=== PATIENT | male | born 1965 | race Caucasian/White ===

== ENCOUNTER 2018-04-26 08:49 | Emergency (ER) | payer BC, SELFPAY ==
[2018-04-26 08:49] VITALS: BP 134/89; PULSE 66; RESP 18; TEMP 36.6; O2SAT 98; BMI 44.6
[2018-04-26 08:54] VITALS: BP 180/95; PULSE 70; RESP 20; O2SAT 97
--- NOTE | 2018-04-26 09:07 | EKG12_ITS ---
Test Reason : DIZZINESS Blood Pressure : / mmHG Vent. Rate : 071 BPM Atrial Rate : 071 BPM P-R Int : 152 ms QRS Dur : 078 ms QT Int : 392 ms P-R-T Axes : 057 011 016 degrees QTc Int : 425 ms Normal sinus rhythm Normal ECG When compared with ECG of 31-MAY-2013 11:32, No significant change was found Confirmed by TERRI HICKEY, ROQUE ([id number]), videotape editor DELL CABRERA ([id number]) on 05/05/2018 2:24:52 PM Referred By: SHAN Confirmed By:ROQUE MURRAY MD
--- NOTE | 2018-04-26 09:07 | CT_ITS ---
STUDY: CT BRAIN WITHOUT CONTRAST REASON FOR EXAM: Male, 52 years old. Dizziness. RADIATION DOSAGE (If Supplied By Facility): CTDIvol = ( 44.99 ) mGy, DLP = ( 863.60 ) mGycm TECHNIQUE: Transaxial CT imaging of the brain was performed without administration of intravenous contrast material. Individualized dose optimization techniques were used for this CT. COMPARISON: Comparison is made with prior examination dated September 08, 2012. FINDINGS: Normal soft tissue structures. Normal calvarium. Normal size ventricles and extra-axial spaces for the patient's age. Normal white matter tracts of the cerebral hemispheres. Normal basal ganglia and thalami. Normal brainstem. Normal cerebellum. There is no intracranial hemorrhage. There are no findings of an acute ischemic infarction. There is a 1.2 cm polyp or mucosal retention cyst along the lateral inferior aspect of the right maxillary sinus. Mild degree of mucosal thickening of left maxillary sinus along its inferior aspect. CT/Brain/Head without Contrast IMPRESSION: Normal unenhanced CT scan of the brain. Mucosal changes in both maxillary sinuses. Electronically Signed: Liam Lazar MD at 10:04 EST Tel [phone], Service support ,
[2018-04-26 09:13] VITALS: BP 113/83; BP 136/102; BP 158/104; PULSE 75; PULSE 77; PULSE 78
[2018-04-26] MEDS: diazePAM 2 MG Tablet PO (09:30)
[2018-04-26] MEDS: 0.9% Normal Saline 1,000 ML 1000 ML IV (09:30)
[2018-04-26 09:32] LABS: Absolute Lymphocyte Count 1.84 X10^3/ul (0.83-4.51); Absolute Neutrophil Count 2.6 X10^3/uL (2.0-7.7); Basophil# 0.03 X10^3/uL; Basophil% 0.6 % (0-1); Eosinophil# 0.15 X10^3/uL; Hematocrit 41.7 % (40-54); Hemoglobin 14.1 g/dl (13.0-16.5); Lymphocyte # 1.84 X10^3/ul (4.0); Lymphocyte % 36.4 % (19-41); Mean Corp Hgb Conc 33.8 g/gl (32-36); Mean Corpuscular Hgb 31.1 pg (27.0-32.0); Mean Corpuscular Volume 91.9 fL (80-94); Mean Platelet Vol. 8.3 fl (6.2-12.0); Monocyte% 7.9 % (0-10); Neutrophil # 2.63 X10^3/uL (2.7-7.7); Neutrophil % 51.9 % (47-70); Platelet Count 280 K/mm3 (150-450); RBC Distribution Width CV 13.6 % (11.6-14.6); RBC Distribution Width SD 44.9 fl (35.1-43.9); Red Blood Count 4.54 M/mm3 (4.6-6.2); White Blood Count 5.1 K/mm3 (4.4-11.0)
[2018-04-26 09:35] LABS: POSITIVE COUNT NO; POSITIVE DIFFERENTIAL NO; POSITIVE MORPHOLOGY NO
[2018-04-26 09:51] LABS: Anion Gap 9 (5-15); BUN 13 mg/dL (7-18); BUN/Creat Ratio 12.5 RATIO (10-20); Calcium,Total 8.6 mg/dL (8.5-10.1); Chloride 109 mmol/L (98-107); Creatinine, Serum 1.04 mg/dL (0.70-1.30); EST Glomerular Filtration Rate 80 mL/min (>60); Est Glom Filt Rate - Afr Amer 97 mL/min (>60); Estimated Creatinine Clearance 93.27 ml/min; Glucose 96 mg/dL (74-106); Potassium 4.1 mmol/L (3.5-5.1); Sodium Level 144 mmol/L (136-145)
--- NOTE | 2018-04-26 10:14 | ED.VISSUMM ---
- ER Visit Summary Date of Service: 04/26/18 Chief Complaint: [Dizziness] History of Present Illness: The patient is a 52 M [presents to the emergency department with complaint of dizziness that started yesterday. 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 Patient denies any falls or head injuries. Patient states that he went home and just sat on the couch all day but he did note that when he got up to use the restroom he still felt somewhat woozy. Patient states the symptoms are definitely made worse by turning his head. This morning patient was having a hard time ambulating secondary to the dizziness. Patient has been nauseated but did not vomit. Patient states that he has had similar symptoms in the past once or twice but never this severe. Patient denies any weakness in extremities. He denies any paresthesias. He denies fever. Patient has had a slight cough that is been nonproductive for about a week and a half. Patient denies taking any new medications.] Physical Examination: [HEENT-PERRLA, EOMI. Cranial nerves II through XII grossly intact. TMs clear. Mucous membranes moist. No adenopathy. Cardiovascular-regular rate and rhythm without murmur or ectopy Lungs-clear to auscultation, chest wall stable without crepitus or subcu emphysema Abdomen-normoactive bowel sounds, soft, nontender, no rebound or rigidity, no peritoneal signs. Neuro vldc-osyrak-binr and heel escobedo testing within normal limits, negative Romberg, negative pronator drift, fundi benign. Hallpike was negative for nystagmus. NIH stroke scale is 0 Extremities-intact ?4, normal range of motion, normal pulses, atraumatic] Test Results: [Orthostatic vital signs were negative. EKG obtained arrival shows sinus rhythm with a ventricular rate of 71 bpm with no acute I segment changes. CBC with it was normal. Chemistries normal. Troponin is less than 0.015. CT scan of the brain without contrast was unremarkable.] Emergency Department Course and Treatment: [She was medicated with Valium 2 mg p.o. and he did feel improved. Patient was able ambulate in the department.] Treatment Plan: [I suspect patient likely has a benign positional vertigo. Patient will be treated with Valium for home as well as Zofran for nausea. Patient advised to follow-up with primary care physician 3-5 days. Patient given work restrictions.] Disposition: [Discharged home in stable condition] Impression: [Benign positional vertigo] This note was generated with [employer] dictation software. It may contain incorrect words, spelling, and punctuation that were not noted in review of the chart prior to signing ED Disposition - Plan for ED Patient: Chief Complaint: Dizziness Referrals: Lan Lopez MD [Primary Care Provider] -
--- NOTE | 2018-04-26 10:20 | ED.DEP ---
ED Disposition - Plan for ED Patient: Chief Complaint: Dizziness Instructions: ED BPV Vertigo Prescriptions: Ondansetron [Zofran Odt] 4 mg PO Q8H PRN PRN #10 tab PRN Reason: Nausea Diazepam [Valium] 2 mg PO TID PRN PRN #14 tab PRN Reason: Vertigo Referrals: Lan Lopez MD [Primary Care Provider] - 5-7 Days
[2018-04-26 11:09] VITALS: BP 118/63; PULSE 76; RESP 18; O2SAT 97
--- OUTSIDE RECORDS SUMMARY | 2018-06-12 08:48 | XMS RPT_ITS ---
:1965 Author Organization [facility] Care Team Providers Name Role Phone MATEUS PAN (JANNIE) Attending Unavailable VIVIANA LORENZO Referring Unavailable VIVIANA LORENZO Attending Unavailable VIVIANA LORENZO Referring Unavailable BERNARDA POST (PHOTOGRAPHIC LITHOGRAPHER) Attending Unavailable VIVIANA LORENZO Referring Unavailable VIVIANA LORENZO Referring Unavailable FLORESITA FRITZ (PA) Attending Unavailable VIVIANA LORENZO Referring Unavailable VIVIANA LORENZO Attending Unavailable VIVIANA LORENZO Referring Unavailable VIVIANA LORENZO Referring Unavailable Viviana Lorenzo Primary Care Unavailable Ethel Adame Attending Unavailable KenroyWilton hintonril Attending Unavailable Deep Rem Referring Unavailable PROBLEMS PROBLEMS DATE TYPE CONDITION / CODE ATTENDING STATUS SOURCE 05/24/2018 Active Other intermediate project manager NA Active [facility] (current) drug [place] therapy / Repository Z79.899(ICD-10) 05/24/2018 Unknown R42 - Dizziness Kenroy, Morris Active Christopher and giddiness / Community R42(ICD-10) Hospital Repository 11/02/2016 Active Personal history NA Active [facility] of nicotine [place] dependence / Repository Z87.891(ICD-10) 11/29/2017 Active Shortness of NA Active [facility] breath / [place] R06.02(ICD-10) Repository 08/26/2017 Active Unknown / PAN, Active [facility] UNK(Unknown) MATEUS GUNTER) [facility] [place] Repository PROCEDURES PROCEDURES No Procedure Records FoundRESULTS RESULTS PROGRESS Observed: 05/24/2018 Status: COMPLETED Source: [place] 10:[address] [facility] REPOSITORY HNO ID: [id number] Author: Viviana Lorenzo Service: (none) Author Type: Physician Type: Progress Notes Filed: 05/24/2018 10:50 PM Note Text: Chief Complaint Patient presents with: ER F/U: [facility] vertigo Imm/Inj: Flu Vaccine HPI Calvin Cabrera is a 52 year old male who presents here today for Chronic Medical Conditions.. Patient with Hx of depression , JUANJO, GERD, obesity, elevated fasting blood sugar, hypogonadism as well as those reviewed and addressed below. New issue: Patient was in the ER at [facility] 04/26/2018 for vertigo and evaluated. [place] to be BPV and placed on zofran prn and valium. Took the valium for the next week and symptoms improved and has not need any more since, Has had repeat symptoms several times since but not needing the valium ( patient was not advised on meclizine per the ER). Has never had PHYSICAL THERAPY for this in the past. If slows down what he is doing the symptoms nehal. Patient was on testosterone in the past for hypogonadism and fatigue but stopped due to side affect potential of cancer. Still tired and questioning if anything else can be used. Can get erections but not always able to maintain. Continues to do well with the paxil for his depression.. Wears his CPAP nightly and feels he gets good rest with use. Past medical history, appointments, medications, allergies reviewed. Previous Medical History PAST MEDICAL HISTORY Diagnosis Date - Allergic rhinitis - Anxiety - Depression - Dyslipidemia 12/06/2013 Low HDL - Elevated fasting blood sugar 05/18/2017 - Ex-smoker quite 2006 ( aprox 20 pack yrs) - Gastroesophageal reflux disease without esophagitis 06/18/2015 - GERD (gastroesophageal reflux disease) - Hypogonadism, testicular - Lumbago - Obesity - Obesity, Class III, BMI 40-49.9 (morbid obesity) ([facility]) 11/02/2016 - JUANJO (obstructive sleep apnea) 08/30/2013 Sever: on CPAP - Panic attack - Sleep apnea, obstructive - Tobacco abuse quite 2006 ( aprox 20 pack yrs) Previous Surgical History PAST SURGICAL HISTORY Procedure Laterality Date - COLONOSCOP W/ OR W/O BRSH SPEC 12/20/2017 Colonoscopy - EGD W/O OR W/BRUSH/WASH 12/20/2017 EGD - ELBOW RIGHT Right 2014 - SEPTOPLASTY - TONSILLECTOMY HX Family History FAMILY HISTORY Problem Relation Age of Onset - Diabetes Maternal Grandmother - Hypertension Father - other (parkenson's) Father - Heart disease Brother valve disease Patient Allergies ALLERGIES Allergen Reactions - Ambien [Zolpidem Ta* Anaphylaxis - Penicillins Unknown - Dicyclomine Other: See Comments [email or web address] Current Medications Current Outpatient Prescriptions on File Prior to Visit: PARoxetine (PAXIL) 40 mg tablet Take 1 tablet by mouth once daily. busPIRone HCl 7.5 mg tablet Take 1 tablet by mouth twice daily. ranitidine (ZANTAC) 150 mg tablet Take 1 tablet by mouth twice daily. COMPOUNDED PRESCRIPTION CPAP machine at 10 cm H2O with Humidification, nasal mask and suppliesDx: G47.33 CPAP Initiate CPAP @ 10 cm of water with humidification. Mask (per patient preference) optional chin strap (if indicated) , filters, tubing, humidifier and lifetime supplies. No current facility-administered medications on file prior to visit. Social History Social History Marital status: Spouse name: Years of education: Number of children: Social History Main Topics Smoking status: Former Smoker Packs/day: 0.00 Years: 0.00 Smokeless tobacco: Current User Types: Chew Comment: around 2002 Alcohol use: Yes Comment: occasional beer Review of Symptoms REVIEW OF SYSTEMS GENERAL: No weight loss, malaise or fevers NECK: Negative for lumps, goiter, pain and significant neck swelling RESPIRATORY: Negative for cough, hemoptysis, wheezing, COPD, dyspnea or shortness of breath CARDIOVASCULAR: Negative for chest pain, leg swelling, hypertension, CHF or palpitations GI: No nausea, vomiting, or diarrhea and No heartburn or reflux symptoms PSYCH: Negative for sleep disturbance, mood disorder and recent psychosocial stressors, See HPI ENDOCRINE: See HPI NEURO: No history of headaches, syncope, paralysis, seizures or tremors EXAM: BP 112/76 Pulse 88 Resp 14 Wt (!) 152.9 kg (337 lb) BMI 45.71 kg/m? General Appearance: Well appearing, alert, in no acute distress, well-hydrated, well nourished.. Eyes: Anicteric sclera. Pupils are equally round. Extraocular movements are intact. . Neck: Supple, no adenopathy; thyroid symmetric, normal size, no bruits. Lungs: lungs clear to auscultation. No wheezing, rhonchi, rales. Heart: RRR without murmur, gallop, or rubs. No ectopy. Abdomen: Normal abdominal exam, Abdomen soft, non-tender. Bowel sounds normal. No masses, organomegaly. Extremities: No deformities, edema, skin discoloration Peripheral Pulses: Normal. Neurologic: Gait normal. Reflexes normal and symmetric. Sensation to light touch and crainal nerves 2-12 intact.. Health Maintenance List ONE PNEUMOVAX PRIOR TO AGE 65 due on 09/17/1986 INFLUENZA(1) due on 01/14/2018 DIABETES SCREEN due on 04/17/2019 LIPID SCREEN due on 04/17/2021 DTAP,TDAP,TD(2 - Td) due on 03/29/2026 COLORECTAL CANCER SCREENING,SEE MODIFIER due on 12/21/2027 Data reviewed A/P ASSESSMENT/PLAN: 1. Dyslipidemia - ICD9: 272.4, ICD10: E78.5 (primary diagnosis) - to be determined upon return of lab results - Encouraged following a low fat, low cholesterol diet. - Discussed the benefits of regular aerobic exercise and weight loss. - Encouraged following a low carbohydrate, healthy oil intake diet. - Continue current therapy. 2. Elevated fasting blood sugar - ICD9: 790.21, ICD10: R73.01 - Will await A1c - Encouraged dietary changes and exercise for weight loss 3. Gastroesophageal reflux disease without esophagitis - ICD9: 530.81, ICD10: K21.9 - Continue treatment with Zantac 150 mg BID - RANITIDINE 150 MG TABLET 4. Major depressive disorder with single episode, in partial remission (HCC) - ICD9: 296.25, ICD10: F32.4 - doing well with Buspar and paxil 5. Anxiety - ICD9: 300.00, ICD10: F41.9 - As per #4 - PAROXETINE 40 MG TABLET 6. Panic attack - ICD9: 300.01, ICD10: F41.0 - As per #4 - PAROXETINE 40 MG TABLET 7. Need for vaccination - ICD9: V05.9, ICD10: Z23 - INFLUENZA VACCINE QUADRIVALENT AGE 3 YRS PLUS + IM given 8. JUANJO (obstructive sleep apnea) - ICD9: 327.23, ICD10: G47.33 - benefiting from CPAP and will cont. 9. Obesity, Class III, BMI 40-49.9 (morbid obesity) (HCC) - ICD9: 278.01, ICD10: E66.01 - As per # 2 10. Hypogonadism, testicular - ICD9: 257.2, ICD10: E29.1 Check - TESTOSTERONE TOTAL If wants to proceed with treatment will refer to urology 11. Erectile dysfunction, unspecified erectile dysfunction type - ICD9: 607.84, ICD10: N52.9 - As per #10 12. Benign paroxysmal positional vertigo, unspecified laterality - ICD9: 386.11, ICD10: H81.10 - Will treat with prn Zofran and meclozine. - CONSULT TO PHYSICAL THERAPY Signed Prescriptions Disp Refills PARoxetine (PAXIL) 40 mg tablet 30 tablet 5 Sig: Take 1 tablet by mouth once daily. LAURA: No busPIRone HCl 7.5 mg tablet 60 tablet 3 Sig: Take 1 tablet by mouth twice daily. LAURA: No ranitidine (ZANTAC) 150 mg tablet 60 tablet 5 Sig: Take 1 tablet by mouth twice daily. LAURA: No ondansetron orally disintegrating (ZOFRAN ODT) 4 mg disintegrating tablet 20 tablet 1 Sig: EVERY 8 HOURS NEEDED PRN For Nausea LAURA: No meclizine (ANTIVERT) 25 mg tab 30 tablet 1 Sig: Take 1 tablet by mouth three times daily. F/u in 6 months WAE check CMP, FLP, UA, PSA, A1c prior to visit. Viviana Lorenzo MD PROGRESS Observed: 05/24/2018 Status: COMPLETED Source: [place] 9:[address] [facility] REPOSITORY HNO ID: [id number] Author: Yael Macias Ma Service: (none) Author Type: (none) Type: Progress Notes Filed: 05/24/2018 10:50 PM Note Text: 52 year old male here for INACTIVATED INFLUENZA VACCINE. [id number] Season Patient is identified by name and date of : Yes [] CONTRAINDICATIONS color enhanced section Age less than 6 months? No Allergy to eggs, chicken, chicken feathers, or chicken dander? No Allergy to thimerosal (a preservative) or formaldehyde, gelatin? No History of severe reaction to any vaccine component or a previous dose of influenza vaccination? No History of Guillain-[place] Syndrome within 6 weeks after a previous influenza vaccine? No Patient is not moderately or severely ill? No Current temperature greater or equal to 100.4F? No History of Bone Marrow Transplant prior 6 months or solid organ transplant in the past 3 months ? No History of fainting after a prior injection or medical procedure? No- ? If patient has fainted in the past, the CDC recommends sitting or lying down for 15 minutes after the vaccination. [] VERIFICATION color enhanced section Was the answer Yes for any of the above contraindications? No contraindications present. Acceptable to proceed with vaccine. Patient/guardian agrees the above answers are true to the best of their knowledge? Yes Flu vaccine information sheet given? Yes See immunization activity in [facility] for details of immunizations adminstered today. Patient age: [age] year old For The 9490-6853 Flu Season 6-35 months old: Fluzone 0.25 ml - IM (Preservative Free) 3 years of age: Fluzone 0.5 ml - IM (Preservative Free) 3 years and older: Fluzone 0.5 ml- IM-(with Preservatives) 65+ years old: 2-49 years old Fluzone High-Dose 0.5 ml - IM (Preservative Free) FLUMIST- intranasal REMEMBER: If patient is less than 9 years of age and this is the first vaccine of Influenza to be received in any flu season, they should receive a second dose in one months time. CNOV Observed: 05/24/2018 Status: COMPLETED Source: [place] 9:[address] [facility] REPOSITORY Office Visit (FAMPWS) CALVIN CABRERA ([id number]) 1965 M Date Time Provider Department 05/24/18 9:40 AM VIVIANA LORENZO During your visit today, we recorded the following information about you: Pulse Respiration Blood pressure Weight 88/minute 14/minute 112/76 152.9 kg Yael Garcíaxander Carbajal 05/24/2018 10:50 PM Signed 52 year old male here for INACTIVATED INFLUENZA VACCINE. [id number] Season Patient is identified by name and date of : Yes [] CONTRAINDICATIONS color enhanced section Age less than 6 months? No Allergy to eggs, chicken, chicken feathers, or chicken dander? No Allergy to thimerosal (a preservative) or formaldehyde, gelatin? No History of severe reaction to any vaccine component or a previous dose of influenza vaccination? No History of Guillain-[place] Syndrome within 6 weeks after a previous influenza vaccine? No Patient is not moderately or severely ill? No Current temperature greater or equal to 100.4F? No History of Bone Marrow Transplant prior 6 months or solid organ transplant in the past 3 months ? No History of fainting after a prior injection or medical procedure? No- ? If patient has fainted in the past, the CDC recommends sitting or lying down for 15 minutes after the vaccination. [] VERIFICATION color enhanced section Was the answer Yes for any of the above contraindications? No contraindications present. Acceptable to proceed with vaccine. Patient/guardian agrees the above answers are true to the best of their knowledge? Yes Flu vaccine information sheet given? Yes [facility] details of immunizations adminstered today. Patient age: [age] year old For The 0294-1106 Flu Season 6-35 months old: Fluzone 0.25 ml - IM (Preservative Free) 3 years of age: Fluzone 0.5 ml - IM (Preservative Free) 3 years and older: Fluzone 0.5 ml- IM-(with Preservatives) 65+ years old: 2-49 years old Fluzone High-Dose 0.5 ml - IM (Preservative Free) FLUMIST- intranasal REMEMBER: If patient is less than 9 years of age and this is the first vaccine of Influenza to be received in any flu season, they should receive a second dose in one months time. Viviana Lroenzo MD 05/24/2018 10:50 PM Signed Chief Complaint Patient presents with: ER F/U: [facility] vertigo Imm/Inj: Flu Vaccine HPI Calvin Cabrera is a 52 year old male who presents here today for Chronic Medical Conditions.. Patient with Hx of depression , JUANJO, GERD, obesity, elevated fasting blood sugar, hypogonadism as well as those reviewed and addressed below. New issue: Patient was in the ER at [facility] 04/26/2018 for vertigo and evaluated. [place] to be BPV and placed on zofran prn and valium. Took the valium for the next week and symptoms improved and has not need any more since, Has had repeat symptoms several times since but not needing the valium ( patient was not advised on meclizine per the ER). Has never had PHYSICAL THERAPY for this in the past. If slows down what he is doing the symptoms nehal. Patient was on testosterone in the past for hypogonadism and fatigue but stopped due to side affect potential of cancer. Still tired and questioning if anything else can be used. Can get erections but not always able to maintain. Continues to do well with the paxil for his depression.. Wears his CPAP nightly and feels he gets good rest with use. Past medical history, appointments, medications, allergies reviewed. Previous Medical History PAST MEDICAL HISTORY Diagnosis Date - Allergic rhinitis - Anxiety - Depression - Dyslipidemia 12/06/2013 Low HDL - Elevated fasting blood sugar 05/18/2017 - Ex-smoker quite 2006 ( aprox 20 pack yrs) - Gastroesophageal reflux disease without esophagitis 06/18/2015 - GERD (gastroesophageal reflux disease) - Hypogonadism, testicular - Lumbago - Obesity - Obesity, Class III, BMI 40-49.9 (morbid obesity) ([facility]) 11/02/2016 - JUANJO (obstructive sleep apnea) 08/30/2013 Sever: on CPAP - Panic attack - Sleep apnea, obstructive - Tobacco abuse quite 2006 ( aprox 20 pack yrs) Previous Surgical History PAST SURGICAL HISTORY Procedure Laterality Date - COLONOSCOP W/ OR W/O BRSH SPEC 12/20/2017 Colonoscopy - EGD W/O OR W/BRUSH/WASH 12/20/2017 EGD - ELBOW RIGHT Right 2013 - SEPTOPLASTY - TONSILLECTOMY HX Family History FAMILY HISTORY Problem Relation Age of Onset - Diabetes Maternal Grandmother - Hypertension Father - other (parkenson's) Father - Heart disease Brother valve disease Patient Allergies ALLERGIES Allergen Reactions - Ambien [Zolpidem Ta* Anaphylaxis - Penicillins Unknown - Dicyclomine Other: See Comments jitters Current Medications Current Outpatient Prescriptions on File Prior to Visit: PARoxetine (PAXIL) 40 mg tablet Take 1 tablet by mouth once daily. busPIRone HCl 7.5 mg tablet Take 1 tablet by mouth twice daily. ranitidine (ZANTAC) 150 mg tablet Take 1 tablet by mouth twice daily. COMPOUNDED PRESCRIPTION CPAP machine at 10 cm H2O with Humidification, nasal mask and suppliesDx: G47.33 CPAP Initiate CPAP @ 10 cm of water with humidification. Mask (per patient preference) optional chin strap (if indicated) , filters, tubing, humidifier and lifetime supplies. No current facility-administered medications on file prior to visit. Social History Social History Marital status: Spouse name: Years of education: Number of children: Social History Main Topics Smoking status: Former Smoker Packs/day: 0.00 Years: 0.00 Smokeless tobacco: Current User Types: Chew Comment: around 2002 Alcohol use: Yes Comment: occasional beer Review of Symptoms REVIEW OF SYSTEMS GENERAL: No weight loss, malaise or fevers NECK: Negative for lumps, goiter, pain and significant neck swelling RESPIRATORY: Negative for cough, hemoptysis, wheezing, COPD, dyspnea or shortness of breath CARDIOVASCULAR: Negative for chest pain, leg swelling, hypertension, CHF or palpitations GI: No nausea, vomiting, or diarrhea and No heartburn or reflux symptoms PSYCH: Negative for sleep disturbance, mood disorder and recent psychosocial stressors, See HPI ENDOCRINE: See HPI NEURO: No history of headaches, syncope, paralysis, seizures or tremors EXAM: BP 112/76 Pulse 88 Resp 14 Wt (!) 152.9 kg (337 lb) BMI 45.71 kg/m? General Appearance: Well appearing, alert, in no acute distress, well-hydrated, well nourished.. Eyes: Anicteric sclera. Pupils are equally round. Extraocular movements are intact. . Neck: Supple, no adenopathy; thyroid symmetric, normal size, no bruits. Lungs: lungs clear to auscultation. No wheezing, rhonchi, rales. Heart: RRR without murmur, gallop, or rubs. No ectopy. Abdomen: Normal abdominal exam, Abdomen soft, non-tender. Bowel sounds normal. No masses, organomegaly. Extremities: No deformities, edema, skin discoloration Peripheral Pulses: Normal. Neurologic: Gait normal. Reflexes normal and symmetric. Sensation to light touch and crainal nerves 2-12 intact.. Health Maintenance List ONE PNEUMOVAX PRIOR TO AGE 65 due on 09/17/1986 INFLUENZA(1) due on 01/14/2018 DIABETES SCREEN due on 04/17/2019 LIPID SCREEN due on 04/17/2021 DTAP,TDAP,TD(2 - Td) due on 03/29/2026 COLORECTAL CANCER SCREENING,SEE MODIFIER due on 12/21/2027 Data reviewed A/P ASSESSMENT/PLAN: 1. Dyslipidemia - ICD9: 272.4, ICD10: E78.5 (primary diagnosis) - to be determined upon return of lab results - Encouraged following a low fat, low cholesterol diet. - Discussed the benefits of regular aerobic exercise and weight loss. - Encouraged following a low carbohydrate, healthy oil intake diet. - Continue current therapy. 2. Elevated fasting blood sugar - ICD9: 790.21, ICD10: R73.01 - Will await A1c - Encouraged dietary changes and exercise for weight loss 3. Gastroesophageal reflux disease without esophagitis - ICD9: 530.81, ICD10: K21.9 - Continue treatment with Zantac 150 mg BID - RANITIDINE 150 MG TABLET 4. Major depressive disorder with single episode, in partial remission (HCC) - ICD9: 296.25, ICD10: F32.4 - doing well with Buspar and paxil 5. Anxiety - ICD9: 300.00, ICD10: F41.9 - As per #4 - PAROXETINE 40 MG TABLET 6. Panic attack - ICD9: 300.01, ICD10: F41.0 - As per #4 - PAROXETINE 40 MG TABLET 7. Need for vaccination - ICD9: V05.9, ICD10: Z23 - INFLUENZA VACCINE QUADRIVALENT AGE 3 YRS PLUS + IM given 8. JUANJO (obstructive sleep apnea) - ICD9: 327.23, ICD10: G47.33 - benefiting from CPAP and will cont. 9. Obesity, Class III, BMI 40-49.9 (morbid obesity) (HCC) - ICD9: 278.01, ICD10: E66.01 - As per # 2 10. Hypogonadism, testicular - ICD9: 257.2, ICD10: E29.1 Check - TESTOSTERONE TOTAL If wants to proceed with treatment will refer to urology 11. Erectile dysfunction, unspecified erectile dysfunction type - ICD9: 607.84, ICD10: N52.9 - As per #10 12. Benign paroxysmal positional vertigo, unspecified laterality - ICD9: 386.11, ICD10: H81.10 - Will treat with prn Zofran and meclozine. - CONSULT TO PHYSICAL THERAPY Signed Prescriptions Disp Refills PARoxetine (PAXIL) 40 mg tablet 30 tablet 5 Sig: Take 1 tablet by mouth once daily. LAURA: No busPIRone HCl 7.5 mg tablet 60 tablet 3 Sig: Take 1 tablet by mouth twice daily. LAURA: No ranitidine (ZANTAC) 150 mg tablet 60 tablet 5 Sig: Take 1 tablet by mouth twice daily. LAURA: No ondansetron orally disintegrating (ZOFRAN ODT) 4 mg disintegrating tablet 20 tablet 1 Sig: EVERY 8 HOURS NEEDED PRN For Nausea LAURA: No meclizine (ANTIVERT) 25 mg tab 30 tablet 1 Sig: Take 1 tablet by mouth three times daily. F/u in 6 months WAE check CMP, FLP, UA, PSA, A1c prior to visit. MD Viviana Morrison MD 05/24/2018 10:42 AM Signed Please get fasting labs and urine test done on or after 11/10/2018 prior to next visit, Referring Provider: VIVIANA LORENZO [[id number]] Allergies As of Date: 05/24/2018 Noted Allergy Reaction AMBIEN (ZOLPIDEM TARTRATE) 05/14/2013 10 - Anaphylaxis PENICILLINS 04/03/2013 16 - Unknown DICYCLOMINE 05/14/2013 14 - Other: See Comments Comments: sheila Date Reviewed: 05/24/2018 Reviewed by: Viviana Lorenzo - Fully Assessed Reason for Visit: ER F/U [41] Cmt: [facility] vertigo Imm/Inj [58] Cmt: Flu Vaccine Reason For Visit History Recorded Primary Visit Diagnosis:Dyslipidemia [E78.5] Other Visit Diagnoses:Elevated fasting blood sugar [R73.01] Gastroesophageal reflux disease without esophagitis [K21.9] Major depressive disorder with single episode, in partial remission (HCC) [F32.4] Anxiety [F41.9] Panic attack [F41.0] Need for vaccination [Z23] JUANJO (obstructive sleep apnea) [G47.33] Obesity, Class III, BMI 40-49.9 (morbid obesity) ([facility]) [E66.01] Hypogonadism, testicular [E29.1] Erectile dysfunction, unspecified erectile dysfunction type [N52.9] Screening for prostate cancer [Z12.5] Benign paroxysmal positional vertigo, unspecified laterality [H81.10] Order(s):INFLUENZA VACCINE QUADRIVALENT AGE 3 YRS PLUS + IM [[id number]] Order #: [id number] PARoxetine (PAXIL) 40 mg tabletTake 1 tablet by mouth once daily.Disp: 30 tabletRfl: 5 busPIRone HCl 7.5 mg tabletTake 1 tablet by mouth twice daily.Disp: 60 tabletRfl: 3 ranitidine (ZANTAC) 150 mg tabletTake 1 tablet by mouth twice daily.Disp: 60 tabletRfl: 5 ondansetron orally disintegrating (ZOFRAN ODT) 4 mg disintegrating tabletEVERY 8 HOURS NEEDED PRN For NauseaDisp: 20 tabletRfl: 1 meclizine (ANTIVERT) 25 mg tabTake 1 tablet by mouth three times daily.Disp: 30 tabletRfl: 1 TESTOSTERONE TOTAL [SQTESTO] Order #: [id number] FUTURE COMP METABOLIC PANEL [SQCMP] Order #: [id number] FUTURE HGB A1C [[id number]] Order #: [id number] FUTURE PSA/PROSTSPECAG DIAG [SQPSA] Order #: [id number] FUTURE URINALYSIS WITH MICROSCOPIC [SQUAWMIC] Order #: [id number] FUTURE LIPID PANEL, NONFASTING [SQLIPNF] Order #: [id number] FUTURE CONSULT TO PHYSICAL THERAPY [9032] Order #: [id number]: 1 Prescriptions as of 05/24/2018 Sig: DIAZEPAM 2 MG TABLET 3 TIMES DAILY NEEDED PRN F* PAROXETINE 40 MG TABLET Take 1 tablet by mouth once d* BUSPIRONE 7.5 MG TABLET Take 1 tablet by mouth twice * RANITIDINE 150 MG TABLET Take 1 tablet by mouth twice * ONDANSETRON 4 MG DISINTEGRATI* EVERY 8 HOURS NEEDED PRN F* COMPOUNDED PRESCRIPTION CPAP machine at 10 cm H2O wit* CPAP Initiate CPAP @ 10 cm of wate* MECLIZINE 25 MG TABLET Take 1 tablet by mouth three * Problem List As Of Date 05/24/2018 Noted Resolved Anxiety [F41.9] Major depressive disorder with single episode, * Panic attack [F41.0] Ex-smoker [Z87.891] More... Allergic rhinitis [J30.9] Hypogonadism, testicular [E29.1] Sleep apnea, obstructive [G47.33] 08/30/2013 Lumbago [M54.5] JUAJNO (obstructive sleep apnea) [G47.33] INVALID FOR* More... Dyslipidemia [E78.5] INVALID FOR* More... Gastroesophageal reflux disease without esophag*INVALID FOR* Proteinuria [R80.9] INVALID FOR* Obesity, Class III, BMI 40-49.9 (morbid obesity*INVALID FOR* Left lateral epicondylitis [M77.12] INVALID FOR* Elevated fasting blood sugar [R73.01] INVALID FOR* Screening for prostate cancer [Z12.5] INVALID FOR* Well adult exam [Z00.00] INVALID FOR* More... Screening for colon cancer [Z12.11] INVALID FOR* More... More... Erectile dysfunction [N52.9] INVALID FOR* Other instructions from your clinician: Please get fasting labs and urine test done on or after 11/10/2018 prior to next visit, Prescriptions ordered this encounter Disp Refills Start End PAROXETINE 40 MG TABLET 30 t* 5 05/24/2018 Route: ORAL Sig: Take 1 tablet by mouth once daily. BUSPIRONE 7.5 MG TABLET 60 t* 3 05/24/2018 Route: ORAL Sig: Take 1 tablet by mouth twice daily. RANITIDINE 150 MG TABLET 60 t* 5 05/24/2018 Route: ORAL Sig: Take 1 tablet by mouth twice daily. ONDANSETRON 4 MG DISINTEGRATING TABL* 20 t* 1 05/24/2018 Sig: EVERY 8 HOURS NEEDED PRN For Nausea MECLIZINE 25 MG TABLET 30 t* 1 05/24/2018 Route: ORAL Sig: Take 1 tablet by mouth three times daily. Medications Discontinued During This Encounter PARoxetine (PAXIL) 40 mg tablet 30 t* 5 11/15/2017 05/24/2018 Route: ORAL Sig: Take 1 tablet by mouth once daily. Disc: Reason for discontinue is not on file. busPIRone HCl 7.5 mg tablet 60 t* 1 11/15/2017 05/24/2018 Route: ORAL Sig: Take 1 tablet by mouth twice daily. Disc: Reason for discontinue is not on file. ranitidine (ZANTAC) 150 mg tablet 60 t* 5 11/15/2017 05/24/2018 Route: ORAL Sig: Take 1 tablet by mouth twice daily. Disc: Reason for discontinue is not on file. ondansetron orally disintegrating (Z* 04/26/2018 05/24/2018 Class: Historical Med Sig: EVERY 8 HOURS NEEDED PRN For Nausea Disc: Reason for discontinue is not on file. Disposition: Return in about 6 months (around 11/21/2018) for complete PE. Follow-up and Disposition History Recorded Encounter Status:Closed by VIVIANA LORENZO on 05/24/18 LIPID PANEL, BASIC Collected: 05/24/2018 Status: F Source: [place] 9:[address] [facility] REPOSITORY TYPE CODE TESTS RESULT OUT OF REFERENCE UNITS RANGE LAB CHOL <200 mg/dL Cholesterol 146 Result Comment: <200 mg/dL, Desirable 200-239 mg/dL, Borderline high >239 mg/dL, High LAB TRIGLY <150 mg/dL Triglyceride 127 Result Comment: <150 mg/dL, Normal 150-199 mg/dL, Borderline high 200-499 mg/dL, High >499 mg/dL, Very high LAB HDL >39 mg/dL HDL-Cholesterol Low 28 Result Comment: 40-59 mg/dL, Acceptable >59 mg/dL, High: Negative risk factor for coronary heart disease <40 mg/dL, Low: Positive risk factor for coronary heart disease LAB LDL <100 mg/dL LDL-Cholesterol 93 Result Comment: <100 mg/dL, Optimal 100-129 mg/dL, Near optimal/above optimal 130-159 mg/dL, Borderline high 160-189 mg/dL, High >189 mg/dL, Very high Secondary prevention optimal LDL Cholesterol levels are recommended to be < 70 mg/dL LAB NONHDL <130 mg/dL Non HDL Cholesterol 118 Result Comment: <130 mg/dL, Optimal 130-159 mg/dL, Near optimal/above optimal 160-189 mg/dL, Borderline high 190-219 mg/dL, High >219 mg/dL, Very high Secondary prevention optimal non HDL Cholesterol levels are recommended to be < 100 mg/dL LAB FT hrs Fasting Time 14 LAB VLDL <30 mg/dL VLDL Cholesterol 25 LAB TCHDL <5.10 High TC:HDL Ratio 5.21 LAB LDLHDL <2.54 High LDL:HDL Ratio 3.32 Result Comment: Reference: 1. National Cholesterol Education Program ATP III Guideline At-A-Glance Quick Desk Reference: National Heart, Lung, and Blood [place]. National Institutes of Health. 2001: NIH Publication No. 01-3305. 2. An International Atherosclerosis Society position paper: global recommendations for the management of dyslipidemia: executive summary, Atherosclerosis. 2014: 232(2):410-413. Performed By: #### LIPB, HBA1C #### [facility] [address] [id number] HEMOGLOBIN A1C Collected: 05/24/2018 Status: F Source: [place] 9:25 AM [facility] REPOSITORY TYPE CODE TESTS RESULT OUT OF REFERENCE UNITS RANGE LAB HGBA1C 4.3-5.6 % Hemoglobin A1c 5.6 Result Comment: [place] Diabetes [employer] guidelines indicate that patients with HgbA1c in the range 5.7-6.4% are at increased risk for development of diabetes, and intervention by lifestyle modification may be beneficial. HgbA1c greater or equal to 6.5% is considered diagnostic of diabetes. LAB HBA0 mg/dL Est. Average Glucose 114 Result Comment: eAG: (Estimated average glucose) is a calculated value from HgbA1c and is event representative of the average blood glucose level in the last 2-3 month period. Performed By: #### LIPB, HBA1C #### [facility] [employer] [address] [id number] TESTOSTERONE Collected: 05/24/2018 Status: F Source: [place] 9:[address] [facility] REPOSITORY TYPE CODE TESTS RESULT OUT OF REFERENCE UNITS RANGE LAB TESTO 193-824 ng/dL Testosterone Low 79 Result Comment: A testosterone level in the 193-320 ng/dL range with associated clinical symptoms is considered low and may indicate hypogonadism (from [facility] 2010 363:123-135). Results >320 ng/dL are considered normal. Result rechecked. Performed By: #### TESTO #### [facility] [employer] [address] [id number] CNCO Observed: 05/24/2018 Status: COMPLETED Source: [place] 12:[address] [facility] REPOSITORY Letter Text Viviana Lorenzo MD [facility] [place], [place] [address] 05/24/2018 TO WHOM IT MAY CONCERN: This is to confirm that Calvin Cabrera had an appointment and was seen at the [facility] [place] [facility] in the Department of Family Medicine by Viviana Lorenzo MD on 05/24/2018. Sincerely yours, Viviana Lorenzo MD CNPTOUTREACH Observed: 05/08/2018 Status: COMPLETED Source: [place] 12:[address] [facility] REPOSITORY Patient Outreach ([facility]) CALVIN CABRERA ([id number]) 1965 M Date Time Provider Department 05/08/18 VIVIANA LORENZO [facility] During your visit today, we recorded the following information about you: Allergies As of Date: 05/08/2018 Noted Allergy Reaction AMBIEN (ZOLPIDEM TARTRATE) 05/14/2013 10 - Anaphylaxis PENICILLINS 04/03/2013 16 - Unknown DICYCLOMINE 05/14/2013 14 - Other: See Comments Comments: sheila Date Reviewed: 04/26/2018 Reviewed by: Linda (Rn) Devika - Fully Assessed Visit Diagnosis:Medication management [Z79.899] Order(s):HGB A1C [QEJXV1G] Order #: [id number] FUTURE LIPID PANEL BASIC [SQLIPB] Order #: [id number] FUTURE Prescriptions as of 05/08/2018 Sig: PAROXETINE 40 MG TABLET Take 1 tablet by mouth once d* BUSPIRONE 7.5 MG TABLET Take 1 tablet by mouth twice * RANITIDINE 150 MG TABLET Take 1 tablet by mouth twice * COMPOUNDED PRESCRIPTION CPAP machine at 10 cm H2O wit* CPAP Initiate CPAP @ 10 cm of wate* Problem List As Of Date 05/08/2018 Noted Resolved Anxiety [F41.9] Depression [F32.9] Panic attack [F41.0] Ex-smoker [Z87.891] More... Allergic rhinitis [J30.9] Hypogonadism, testicular [E29.1] Sleep apnea, obstructive [G47.33] 08/30/2013 Lumbago [M54.5] JUANJO (obstructive sleep apnea) [G47.33] INVALID FOR* More... Dyslipidemia [E78.5] INVALID FOR* More... Gastroesophageal reflux disease without esophag*INVALID FOR* Proteinuria [R80.9] INVALID FOR* Obesity, Class III, BMI 40-49.9 (morbid obesity*INVALID FOR* Left lateral epicondylitis [M77.12] INVALID FOR* Elevated fasting blood sugar [R73.01] INVALID FOR* Screening for prostate cancer [Z12.5] INVALID FOR* Well adult exam [Z00.00] INVALID FOR* More... Screening for colon cancer [Z12.11] INVALID FOR* Colon cancer screening [Z12.11] INVALID FOR* More... GERD (gastroesophageal reflux disease) [K21.9] INVALID FOR* More... Encounter Status:Closed by PINEDA HICKS on 05/23/18 12 LEAD ELECTROCARDIOGRAM Observed: 05/05/2018 Status: F Source: [place] 2:25 PM [facility] REPOSITORY [facility] Cardiovascular Services [address] [place] [address] 12 Lead EKG 04/26/18 0859 MR#: [id number] Acct: [id number] Name: CALVIN CABRERA Rep #: [id number] : 1965 52 From: Zack Jasmine MD Attending Dr: Status: DEP ER Ordering Dr: Ethel Adame DO Date: 04/26/18 Location: ED Sex: M C Admitted: Test Reason : DIZZINESS Blood Pressure : / mmHG Vent. Rate : 071 BPM Atrial Rate : 071 BPM P-R Int : 152 ms QRS Dur : 078 ms QT Int : 392 ms P-R-T Axes : 057 011 016 degrees QTc Int : 425 ms Normal sinus rhythm Normal ECG When compared with ECG of 31-MAY-2013 11:32, No significant change was found Confirmed by KENROY HICKEY, ZACK ([id number]), acquisition editor DELL CABRERA ([id number]) on 05/05/2018 2:24:52 PM Referred By: RU Confirmed By:ZACK JASMINE MD 05/05/18 1424 Date Zack Jasmine MD CC: Viviana Lorenzo MD; Ethel Adame DO Signed DISCHARGE INSTRUCTION Observed: 04/26/2018 Status: F Source: [place] 10:21 AM [facility] Medical Records Department [address] [place] [address] Discharge Instruction 04/26/18 1020 MR#: [id number] Acct: [id number] Name: CALVIN CABRERA Rep #: [id number] : 1965 52 From: Ethel Adame DO PCP: Viviana Lorenzo MD Status: REG ER ED Disposition - Plan for ED Patient: Chief Complaint: Dizziness Instructions: ED BPV Vertigo Prescriptions: Ondansetron [Zofran Odt] 4 mg PO Q8H PRN PRN #10 tab PRN Reason: Nausea Diazepam [Valium] 2 mg PO TID PRN PRN #14 tab PRN Reason: Vertigo Referrals: Viviana Lorenzo MD [Primary Care Provider] - 5-7 Days What to do if you have Problems For any increased pain, shortness of breath, bleeding, nausea or vomiting, chest pain, or any unexpected problems, contact your Primary Care Provider. Call [facility] ([phone]) or report to the closest Emergency Room. Call 911 if necessary. 04/26/18 1021 <Electronically signed by Ethel Adame DO> Date Ethel Adame DO Cosigner Signature (If Indicated): Date CC: Viviana Lorenzo MD EMERGENCY DEPARTMENT Observed: 04/26/2018 Status: F Source: [place] SUMMARY 10:20 AM [facility] Medical Records Department [address] [place] [address] Emergency Department Summary 04/26/18 1014 MR#: [id number] Acct: [id number] Name: CALVIN CABRERA Rep #: [id number] : 1965 52 From: Ethel Adame DO PCP: Viviana Lorenzo MD Status: REG ER - ER Visit Summary Date of Service: 04/26/18 Chief Complaint: [Dizziness] History of Present Illness: The patient is a 52 M [presents to the emergency department with complaint of dizziness that started yesterday. 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 Patient denies any falls or head injuries. Patient states that he went home and just sat on the couch all day but he did note that when he got up to use the restroom he still felt somewhat woozy. Patient states the symptoms are definitely made worse by turning his head. This morning patient was having a hard time ambulating secondary to the dizziness. Patient has been nauseated but did not vomit. Patient states that he has had similar symptoms in the past once or twice but never this severe. Patient denies any weakness in extremities. He denies any paresthesias. He denies fever. Patient has had a slight cough that is been nonproductive for about a week and a half. Patient denies taking any new medications.] Physical Examination: [HEENT-PERRLA, EOMI. Cranial nerves II through XII grossly intact. TMs clear. Mucous membranes moist. No adenopathy. Cardiovascular-regular rate and rhythm without murmur or ectopy Lungs-clear to auscultation, chest wall stable without crepitus or subcu emphysema Abdomen-normoactive bowel sounds, soft, nontender, no rebound or rigidity, no peritoneal signs. Neuro ztla-yycpmt-guqh and heel escobedo testing within normal limits, negative Romberg, negative pronator drift, fundi benign. Hallpike was negative for nystagmus. NIH stroke scale is 0 Extremities-intact 4, normal range of motion, normal pulses, atraumatic] Test Results: [Orthostatic vital signs were negative. EKG obtained arrival shows sinus rhythm with a ventricular rate of 71 bpm with no acute I segment changes. CBC with it was normal. Chemistries normal. Troponin is less than 0.015. CT scan of the brain without contrast was unremarkable.] Emergency Department Course and Treatment: [She was medicated with Valium 2 mg p.o. and he did feel improved. Patient was able ambulate in the department.] Treatment Plan: [I suspect patient likely has a benign positional vertigo. Patient will be treated with Valium for home as well as Zofran for nausea. Patient advised to follow-up with primary care physician 3-5 days. Patient given work restrictions.] Disposition: [Discharged home in stable condition] Impression: [Benign positional vertigo] This note was generated with [employer] dictation software. It may contain incorrect words, spelling, and punctuation that were not noted in review of the chart prior to signing ED Disposition - Plan for ED Patient: Chief Complaint: Dizziness Referrals: Viviana Lorenzo MD [Primary Care Provider] - What to do if you have Problems For any increased pain, shortness of breath, bleeding, nausea or vomiting, chest pain, or any unexpected problems, contact your Primary Care Provider. Call [facility] ([phone]) or report to the closest Emergency Room. Call 911 if necessary. 04/26/18 1020 <Electronically signed by Ethel Adame DO> Date Ethel Adame DO Cosigner Signature (If Indicated): Date CC: Viviana Lorenzo MD CBC W/DIFF, AUTOMATED Collected: 04/26/2018 Status: F Source: [place] 9:20 AM [facility] REPOSITORY TYPE CODE TESTS RESULT OUT OF RANGE REFERENCE UNITS LAB L100.1000 4.4-11.0 K/mm3 Normal WBC 5.1 LAB L100.1200 4.6-6.2 M/mm3 Low RBC 4.54 LAB L100.1300 13.0-16.5 g/dl Normal HGB 14.1 LAB L100.1400 40-54 % Normal HCT 41.7 LAB L100.1500 80-94 fL Normal MCV 91.9 LAB L100.1600 27.0-32.0 pg Normal MCH 31.1 LAB L100.1700 32-36 g/gl Normal MCHC 33.8 LAB L100.1810 11.6-14.6 % Normal RDW CV 13.6 LAB L100.1820 35.1-43.9 fl High RDW SD 44.9 LAB L100.1900 150-450 K/mm3 Normal PLT 280 LAB L100.2000 6.2-12.0 fl Normal MPV 8.3 LAB L100.2100 47-70 % Normal NEUT% 51.9 LAB L100.2200 19-41 % Normal LY% 36.4 LAB L100.2300 0-10 % Normal MONO% 7.9 LAB L100.2400 0-5 % Normal EO% 3.0 LAB L100.2500 0-1 % Normal BASO% 0.6 LAB L100.2550 0.0-0.9 % Normal IM GRAN % 0.200 Result Comment: IG% - Immature Granulocytes (promyelocytes, myelocytes and metamyelocytes) > 1% indicates that a LEFT SHIFT is Present. LAB L100.2620 2.0-7.7 X10 3/uL Normal Absolute Neut 2.6 LAB L100.2720 0.83-4.51 X10 3/ul Normal Absolute Lymph 1.84 Performed By: #### L100.0100 #### [facility] [address], [place], [id number] BASIC METABOLIC Collected: 04/26/2018 Status: F Source: [place] PROFILE (BMP) 9:20 AM [facility] REPOSITORY TYPE CODE TESTS RESULT OUT OF RANGE REFERENCE UNITS LAB L501.0100 74-106 mg/dL Normal GLU 96 Result Comment: Please note revised GLUCOSE reference range effective 2017. LAB L501.1000 7-18 mg/dL Normal BUN 13 LAB L501.1100 0.70-1.30 mg/dL Normal CREAT,SERUM 1.04 Result Comment: The validity of the calculated GFR AND GFRAA in patients over 70 years has not been determined. Clinical correlation is essential. LAB L501.1110 >60 mL/min Normal EST GFR 80 Result Comment: Non- GFR Calc LAB L501.1115 >60 mL/min Normal EST GFR - AA 97 Result Comment: GFR Calc LAB L501.1255 ml/min Normal Estimated CRCL 93.27 LAB L501.1300 10-20 RATIO Normal BUN/CRE 12.5 LAB L501.2200 8.5-10 mg/dL Normal .1 CA 8.6 LAB L501.5300 136-14 mmol/L Normal 5 NA 144 LAB L501.5600 3.5-5. mmol/L Normal 1 K 4.1 LAB L501.5900 98-107 mmol/L High CL 109 LAB L501.6100 21.0-3 mmol/L Normal 2.0 CO2 26.0 LAB L501.6200 5-15 Normal GAP 9 Performed By: #### L500.2500, L501.4010 #### [facility] [address] [place], [place], [address] TROPONIN-I Collected: 04/26/2018 Status: F Source: [place] 9:20 AM [facility] REPOSITORY TYPE CODE TESTS RESULT OUT OF RANGE REFERENCE UNITS LAB L501.4010 <0.045 ng/mL Normal < 0.015 TROPONIN-I Result Comment: TROPONIN-I EXPECTED VALUES <0.045 Negative 0.045 - 0.590 Consistent with Cardiac Damage > OR = 0.600 Critical Value Not every elevated troponin is indicative of NJ. These values should be used with clinical judgement in examining the patient's clinical picture for diagnosis. To establish a diagnosis of NJ versus myocardial injury, there must be a demonstrated rise and/or fall in the troponin values, in addition to ischemic symptoms, EKG changes, new regional wall motion abnormality, and/or angiographical evidence. PLEASE NOTE: REFERENCE RANGES EDITED 17 Performed By: #### L500.2500, L501.4010 #### [facility] [address] [place], [address] BRAIN/HEAD WITHOUT Observed: 04/26/2018 Status: F Source: [place] CONTR[place] 9:09 AM [facility] REPOSITORY [facility] Imaging Services [address] [place] [address] Brain/Head without Contrast MR#: [id number] Acct: [id number] Name: CALVIN CABRERA Anuel Rep #: [id number] : 1965 M 52 From: Liam Lazar MD PCP: Viviana Lorenzo MD Status: REG ER Study: Brain/Head without Contrast Date of Exam: 04/26/18 Exam# [id number] Ordering Dr: Ethel Adame DO STUDY: CT BRAIN WITHOUT CONTRAST REASON FOR EXAM: Male, 52 years old. Dizziness. RADIATION DOSAGE (If Supplied By Facility): CTDIvol = ( 44.99 ) mGy, DLP = ( 863.60 ) mGycm TECHNIQUE: Transaxial CT imaging of the brain was performed without administration of intravenous contrast material. Individualized dose optimization techniques were used for this CT. COMPARISON: Comparison is made with prior examination dated September 08, 2012. FINDINGS: Normal soft tissue structures. Normal calvarium. Normal size ventricles and extra-axial spaces for the patient's age. Normal white matter tracts of the cerebral hemispheres. Normal basal ganglia and thalami. Normal brainstem. Normal cerebellum. There is no intracranial hemorrhage. There are no findings of an acute ischemic infarction. There is a 1.2 cm polyp or mucosal retention cyst along the lateral inferior aspect of the right maxillary sinus. Mild degree of mucosal thickening of left maxillary sinus along its inferior aspect. CT/Brain/Head without Contrast IMPRESSION: Normal unenhanced CT scan of the brain. Mucosal changes in both maxillary sinuses. Electronically Signed: Liam Lazar MD at 10:04 EST Tel [phone], Service support , CC: Viviana Lorenzo MD; Ethel Adame DO Geospatial Scientist: Signed PROGRESS Observed: 04/22/2018 Status: COMPLETED Source: [place] 2:[address] [facility] REPOSITORY HNO ID: [id number] Author: Shaenka Araujo) Kely Service: (none) Author Type: Nurse Practitioner Type: Progress Notes Filed: 04/22/2018 3:02 PM Note Text: Subjective The history is provided by the patient and a relative. No diplomatic interpreter/translator was used. DAVI Cabrera is a 52 year old male who presents today for CC of 5 days of cough, fever, sore throat, head and chest congestion. He has tried occasional tyelnol and ibuprofen. He also states he is having darker than normal urine with lower back ache. Concerned he may have UTI. Uses CPAP concerned about tubing. BP 110/80 Pulse 81 Temp 36.4 ?C (97.6 ?F) (Left Tympanic) Resp 18 Wt (!) 148.8 kg (328 lb) SpO2 94% BMI 44.48 kg/m? PAST MEDICAL HISTORY Diagnosis Date - Allergic rhinitis - Anxiety - Depression - GERD (gastroesophageal reflux disease) - Hypogonadism, testicular - Lumbago - Obesity - Panic attack - Sleep apnea, obstructive - Tobacco abuse quite 2006 ( aprox 20 pack yrs) I have confirmed and edited as necessary, the [facility] Review of Systems Constitutional: Positive for fever (tactile). Negative for chills. HENT: Positive for congestion and sinus pain. Negative for ear pain and sore throat. Respiratory: Positive for cough. Musculoskeletal: Negative for myalgias. Neurological: Negative for headaches. All other systems reviewed and are negative. Objective Physical Exam Constitutional: He is well-developed, well-nourished, and in no distress. HENT: Head: Normocephalic and atraumatic. Right Ear: Tympanic membrane, external ear and ear canal normal. Tympanic membrane is not injected, not erythematous, not retracted and not bulging. No middle ear effusion. Left Ear: Tympanic membrane, external ear and ear canal normal. Tympanic membrane is not injected, not erythematous, not retracted and not bulging. No middle ear effusion. Nose: Mucosal edema and rhinorrhea present. Right sinus exhibits no maxillary sinus tenderness and no frontal sinus tenderness. Left sinus exhibits no maxillary sinus tenderness and no frontal sinus tenderness. Mouth/Throat: Uvula is midline and mucous membranes are normal. Posterior oropharyngeal erythema and tonsillar abscesses present. No oropharyngeal exudate or posterior oropharyngeal edema (mild). Cardiovascular: Normal rate, regular rhythm and normal heart sounds. Pulmonary/Chest: Effort normal and breath sounds normal. No respiratory distress. He has no wheezes. He has no rales. Abdominal: Normal appearance and bowel sounds are normal. He exhibits no abdominal bruit, no pulsatile midline mass and no mass. There is no tenderness. There is no rigidity, no rebound, no guarding, no CVA tenderness, no tenderness at McBurney's point and negative Leiva's sign. Neurological: He is alert. Skin: Skin is warm and dry. Psychiatric: Affect normal. Nursing note and vitals reviewed. Component Latest Ref Rng AND Units 04/22/2018 GLUCOSE UA (POCT) Negative mg/dL Negative BILIRUBIN UA (POCT) Negative Negative KETONE UA (POCT) Negative mg/dL Negative SPECIFIC GRAVITY UA (POCT) 1.005 - 1.030 >=1.030 HEMOGLOBIN/BLOOD UA (POCT) Negative Negative PH UA (POCT) 4.5 - 8.0 5.5 PROTEIN UA (POCT) Negative mg/dL Negative UROBILINOGEN UA (POCT) Normal E.U./dL 0.2 NITRITE UA (POCT) Negative Negative LEUKOCYTES UA (POCT) Negative Negative COLOR UA (POCT) Yellow CLARITY UA (POCT) Clear ASSESSMENT/PLAN: 1. URI with cough and congestion - ICD9: 465.9, ICD10: J06.9 (primary diagnosis) - Discussed viral etiology and rationale for treatment. Rest, increase water intake Motrin or Tylenol as needed for fever or pain. Salt water gargles, chloraseptic spray or lozenges as needed for sore throat. Nasal spray as needed Cool mist humidifier at night A cold normally lasts 7-10 days. If your symptoms are lasting longer, develop fever, or worsening by that time instead of improving then return to clinic or follow up with PCP for re-evaluation. Tylenol (generic acetaminophen) 500 mg-2 tabs every 8 hrs. as needed for fever and aches Ibuprofen 600 mg (3-200mg tablets) every 6 hours -Sudafed (generic is fine), behind the counter, 2x30 mg tabs twice daily as needed for congestion -Mucinex (generic is fine) 1200 mg twice daily to help with cough and to thin out mucus Flonase or Nasonex 1 spray each nostril two times a day. -[email or web address] This link shares information about when antibiotics may help and when they may not. 2. Acute bilateral back pain, unspecified back location - ICD9: 724.5, ICD10: M54.9 Muscle aches related to URI Urine dip - negative - UA DIP, URINE (POC) * Seek medical care immediately, call 911, go to ER if you have chest pain, difficulty breathing, shortness of breath, inability to swallow. Diagnosis and treatment plan were discussed and questions were answered to the patient's satisfaction. Pt acknowledged understanding of concepts and follow up plan. Specific signs and symptoms that would indicate the need for higher level of care were discussed in detail warranting prompt ER evaluation. Shaneka Peña APRN.HECTOR CNOV Observed: 04/22/2018 Status: COMPLETED Source: [place] 2:[address] [facility] REPOSITORY Office Visit (WSTR) CALVIN CABRERA ([id number]) 1965 M Date Time Provider Department 04/22/18 2:30 PM SHANEKA PEÑA (PHARMACY OPERATIONS COORDINATOR) [facility] During your visit today, we recorded the following information about you: Temperature Pulse Respiration Blood pressure 97.6 degrees 81/minute 18/minute 110/80 Weight 148.8 kg Shaneka Peña APRN.CNP 04/22/2018 3:02 PM Signed Subjective The history is provided by the patient and a relative. No diplomatic interpreter/translator was used. DAVI Cabrera is a 52 year old male who presents today for CC of 5 days of cough, fever, sore throat, head and chest congestion. He has tried occasional tyelnol and ibuprofen. He also states he is having darker than normal urine with lower back ache. Concerned he may have UTI. Uses CPAP concerned about tubing. BP 110/80 Pulse 81 Temp 36.4 ?C (97.6 ?F) (Left Tympanic) Resp 18 Wt (!) 148.8 kg (328 lb) SpO2 94% BMI 44.48 kg/m? PAST MEDICAL HISTORY Diagnosis Date - Allergic rhinitis - Anxiety - Depression - GERD (gastroesophageal reflux disease) - Hypogonadism, testicular - Lumbago - Obesity - Panic attack - Sleep apnea, obstructive - Tobacco abuse quite 2006 ( aprox 20 pack yrs) I have confirmed and edited as necessary, the [facility] Review of Systems Constitutional: Positive for fever (tactile). Negative for chills. HENT: Positive for congestion and sinus pain. Negative for ear pain and sore throat. Respiratory: Positive for cough. Musculoskeletal: Negative for myalgias. Neurological: Negative for headaches. All other systems reviewed and are negative. Objective Physical Exam Constitutional: He is well-developed, well-nourished, and in no distress. HENT: Head: Normocephalic and atraumatic. Right Ear: Tympanic membrane, external ear and ear canal normal. Tympanic membrane is not injected, not erythematous, not retracted and not bulging. No middle ear effusion. Left Ear: Tympanic membrane, external ear and ear canal normal. Tympanic membrane is not injected, not erythematous, not retracted and not bulging. No middle ear effusion. Nose: Mucosal edema and rhinorrhea present. Right sinus exhibits no maxillary sinus tenderness and no frontal sinus tenderness. Left sinus exhibits no maxillary sinus tenderness and no frontal sinus tenderness. Mouth/Throat: Uvula is midline and mucous membranes are normal. Posterior oropharyngeal erythema and tonsillar abscesses present. No oropharyngeal exudate or posterior oropharyngeal edema (mild). Cardiovascular: Normal rate, regular rhythm and normal heart sounds. Pulmonary/Chest: Effort normal and breath sounds normal. No respiratory distress. He has no wheezes. He has no rales. Abdominal: Normal appearance and bowel sounds are normal. He exhibits no abdominal bruit, no pulsatile midline mass and no mass. There is no tenderness. There is no rigidity, no rebound, no guarding, no CVA tenderness, no tenderness at McBurney's point and negative Leiva's sign. Neurological: He is alert. Skin: Skin is warm and dry. Psychiatric: Affect normal. Nursing note and vitals reviewed. Component Latest Ref Rng AND Units 04/22/2018 GLUCOSE UA (POCT) Negative mg/dL Negative BILIRUBIN UA (POCT) Negative Negative KETONE UA (POCT) Negative mg/dL Negative SPECIFIC GRAVITY UA (POCT) 1.005 - 1.030 >=1.030 HEMOGLOBIN/BLOOD UA (POCT) Negative Negative PH UA (POCT) 4.5 - 8.0 5.5 PROTEIN UA (POCT) Negative mg/dL Negative UROBILINOGEN UA (POCT) Normal E.U./dL 0.2 NITRITE UA (POCT) Negative Negative LEUKOCYTES UA (POCT) Negative Negative COLOR UA (POCT) Yellow CLARITY UA (POCT) Clear ASSESSMENT/PLAN: 1. URI with cough and congestion - ICD9: 465.9, ICD10: J06.9 (primary diagnosis) - Discussed viral etiology and rationale for treatment. Rest, increase water intake Motrin or Tylenol as needed for fever or pain. Salt water gargles, chloraseptic spray or lozenges as needed for sore throat. Nasal spray as needed Cool mist humidifier at night A cold normally lasts 7-10 days. If your symptoms are lasting longer, develop fever, or worsening by that time instead of improving then return to clinic or follow up with PCP for re-evaluation. Tylenol (generic acetaminophen) 500 mg-2 tabs every 8 hrs. as needed for fever and aches Ibuprofen 600 mg (3-200mg tablets) every 6 hours -Sudafed (generic is fine), behind the counter, 2x30 mg tabs twice daily as needed for congestion -Mucinex (generic is fine) 1200 mg twice daily to help with cough and to thin out mucus Flonase or Nasonex 1 spray each nostril two times a day. -[email or web address] This link shares information about when antibiotics may help and when they may not. 2. Acute bilateral back pain, unspecified back location - ICD9: 724.5, ICD10: M54.9 Muscle aches related to URI Urine dip - negative - UA DIP, URINE (POC) * Seek medical care immediately, call 911, go to ER if you have chest pain, difficulty breathing, shortness of breath, inability to swallow. Diagnosis and treatment plan were discussed and questions were answered to the patient's satisfaction. Pt acknowledged understanding of concepts and follow up plan. Specific signs and symptoms that would indicate the need for higher level of care were discussed in detail warranting prompt ER evaluation. YANDEL Watson APRN.CNP 04/22/2018 2:57 PM Signed ASSESSMENT/PLAN: 1. URI with cough and congestion - ICD9: 465.9, ICD10: J06.9 (primary diagnosis) - Discussed viral etiology and rationale for treatment. Rest, increase water intake Motrin or Tylenol as needed for fever or pain. Salt water gargles, chloraseptic spray or lozenges as needed for sore throat. Nasal spray as needed Cool mist humidifier at night A cold normally lasts 7-10 days. If your symptoms are lasting longer, develop fever, or worsening by that time instead of improving then return to clinic or follow up with PCP for re-evaluation. Tylenol (generic acetaminophen) 500 mg-2 tabs every 8 hrs. as needed for fever and aches Ibuprofen 600 mg (3-200mg tablets) every 6 hours -Sudafed (generic is fine), behind the counter, 2x30 mg tabs twice daily as needed for congestion -Mucinex (generic is fine) 1200 mg twice daily to help with cough and to thin out mucus Flonase or Nasonex 1 spray each nostril two times a day. -[email or web address] This link shares information about when antibiotics may help and when they may not. 2. Acute bilateral back pain, unspecified back location - ICD9: 724.5, ICD10: M54.9 Muscle aches related to URI Urine dip - negative - UA DIP, URINE (POC) * Seek medical care immediately, call 911, go to ER if you have chest pain, difficulty breathing, shortness of breath, inability to swallow. Referring Provider: SELF [[id number]] Allergies As of Date: 04/22/2018 Noted Allergy Reaction AMBIEN (ZOLPIDEM TARTRATE) 05/14/2013 10 - Anaphylaxis PENICILLINS 04/03/2013 16 - Unknown DICYCLOMINE 05/14/2013 14 - Other: See Comments Comments: jitters Date Reviewed: 04/22/2018 Reviewed by: Shaneka ([facility]) Kely - Fully Assessed Reason for Visit: URI [115] Primary Visit Diagnosis:URI with cough and congestion [J06.9] Other Visit Diagnosis:Acute bilateral back pain, unspecified back location [M54.9] Order(s):UA DIP, URINE (POC) [[id number]] Order #: [id number]. #:[id number] Prescriptions as of 04/22/2018 Sig: PAROXETINE 40 MG TABLET Take 1 tablet by mouth once d* BUSPIRONE 7.5 MG TABLET Take 1 tablet by mouth twice * RANITIDINE 150 MG TABLET Take 1 tablet by mouth twice * COMPOUNDED PRESCRIPTION CPAP machine at 10 cm H2O wit* CPAP Initiate CPAP @ 10 cm of wate* Problem List As Of Date 04/22/2018 Noted Resolved Anxiety [F41.9] Depression [F32.9] Panic attack [F41.0] Ex-smoker [Z87.891] More... Allergic rhinitis [J30.9] Hypogonadism, testicular [E29.1] Sleep apnea, obstructive [G47.33] 08/30/2013 Lumbago [M54.5] JUANJO (obstructive sleep apnea) [G47.33] INVALID FOR* More... Dyslipidemia [E78.5] INVALID FOR* More... Gastroesophageal reflux disease without esophag*INVALID FOR* Proteinuria [R80.9] INVALID FOR* Obesity, Class III, BMI 40-49.9 (morbid obesity*INVALID FOR* Left lateral epicondylitis [M77.12] INVALID FOR* Elevated fasting blood sugar [R73.01] INVALID FOR* Screening for prostate cancer [Z12.5] INVALID FOR* Well adult exam [Z00.00] INVALID FOR* More... Screening for colon cancer [Z12.11] INVALID FOR* Colon cancer screening [Z12.11] INVALID FOR* More... GERD (gastroesophageal reflux disease) [K21.9] INVALID FOR* More... Other instructions from your clinician: ASSESSMENT/PLAN: 1. URI with cough and congestion - ICD9: 465.9, ICD10: J06.9 (primary diagnosis) - Discussed viral etiology and rationale for treatment. Rest, increase water intake Motrin or Tylenol as needed for fever or pain. Salt water gargles, chloraseptic spray or lozenges as needed for sore throat. Nasal spray as needed Cool mist humidifier at night A cold normally lasts 7-10 days. If your symptoms are lasting longer, develop fever, or worsening by that time instead of improving then return to clinic or follow up with PCP for re-evaluation. Tylenol (generic acetaminophen) 500 mg-2 tabs every 8 hrs. as needed for fever and aches Ibuprofen 600 mg (3-200mg tablets) every 6 hours -Sudafed (generic is fine), behind the counter, 2x30 mg tabs twice daily as needed for congestion -Mucinex (generic is fine) 1200 mg twice daily to help with cough and to thin out mucus Flonase or Nasonex 1 spray each nostril two times a day. -[email or web address]/. This link shares information about when antibiotics may help and when they may not. 2. Acute bilateral back pain, unspecified back location - ICD9: 724.5, ICD10: M54.9 Muscle aches related to URI Urine dip - negative - UA DIP, URINE (POC) * Seek medical care immediately, call 911, go to ER if you have chest pain, difficulty breathing, shortness of breath, inability to swallow. Medications Discontinued During This Encounter albuterol HFA (PROAIR HFA) 90 mcg/ac* 1 In* 0 04/14/2016 04/22/2018 Route: INHALATION Sig: Inhale 2 Puffs as instructed every 4 hours as needed. Disc: Course of therapy completed Encounter Status:Closed by SHANEKA PEÑA CNP on 04/22/18 PROGRESS Observed: 04/19/2018 Status: COMPLETED Source: [place] 10:[address] [facility] REPOSITORY HNO ID: [id number] Author: Servando Gold Service: (none) Author Type: Physician Type: Progress Notes Filed: 04/19/2018 11:18 AM Note Text: Patient presents with: fever, head and chest congestion, and ST: x 1 day-gets URI's frm C-pap machine HPI: Woke feeling sick yesterday and today. Worried he might have strep. He thinks he gets URIs from his CPAP. Positive symptoms: Sore throat, Fever, Body Aches, Negative symptoms: Cough, Nasal Congestion, Rhinorrhea, OTC: rest MEDICATIONS: Current Outpatient Prescriptions: PARoxetine (PAXIL) 40 mg tablet Take 1 tablet by mouth once daily. busPIRone HCl 7.5 mg tablet Take 1 tablet by mouth twice daily. ranitidine (ZANTAC) 150 mg tablet Take 1 tablet by mouth twice daily. COMPOUNDED PRESCRIPTION CPAP machine at 10 cm H2O with Humidification, nasal mask and suppliesDx: G47.33 CPAP Initiate CPAP @ 10 cm of water with humidification. Mask (per patient preference) optional chin strap (if indicated) , filters, tubing, humidifier and lifetime supplies. albuterol HFA (PROAIR HFA) 90 mcg/actuation inhaler Inhale 2 Puffs as instructed every 4 hours as needed. No current facility-administered medications for this visit. ALLERGIES: ALLERGIES Allergen Reactions - Ambien [Zolpidem Ta* Anaphylaxis - Penicillins Unknown - Dicyclomine Other: See Comments jitters VITALS: BP 122/80 Pulse 70 Temp 36.2 ?C (97.2 ?F) (Tympanic) Resp 16 Wt (!) 149.2 kg (329 lb) SpO2 96% BMI 44.62 kg/m? PHYSICAL EXAM: GEN: Pleasant, in no acute distress. HEENT: PERRL, EOMI, conjunctiva clear Ears: canals clear, TMs without erythema, bulge, or effusion Sinuses: non-tender frontal sinus, non-tender maxillary sinuses Throat: moist mucous membranes, pharyngeal erythema, no exudate Neck: supple, no thyromegaly, no lymphadenopathy HEART: regular rate and rhythm, no murmurs LUNGS: clear to auscultation, no wheezes or crackles, no increased WOB ASSESSMENT/PLAN: 1. Sore throat - ICD9: 462, ICD10: J02.9 Rapid strep negative. - Discussed supportive care treatment with rest. Servando Gold MD CNOV Observed: 04/19/2018 Status: COMPLETED Source: [place] 10:[address] [facility] REPOSITORY Office Visit ([facility]) CALVIN CABRERA ([id number]) 1965 M Date Time Provider Department 04/19/18 10:45 AM SERVANDO [facility] During your visit today, we recorded the following information about you: Temperature Pulse Respiration Blood pressure 97.2 degrees 70/minute 16/minute 122/80 Weight 149.2 kg Servando Gold MD 04/19/2018 11:18 AM Signed Patient presents with: fever, head and chest congestion, and ST: x 1 day-gets URI's frm C-pap machine HPI: Woke feeling sick yesterday and today. Worried he might have strep. He thinks he gets URIs from his CPAP. Positive symptoms: Sore throat, Fever, Body Aches, Negative symptoms: Cough, Nasal Congestion, Rhinorrhea, OTC: rest MEDICATIONS: Current Outpatient Prescriptions: PARoxetine (PAXIL) 40 mg tablet Take 1 tablet by mouth once daily. busPIRone HCl 7.5 mg tablet Take 1 tablet by mouth twice daily. ranitidine (ZANTAC) 150 mg tablet Take 1 tablet by mouth twice daily. COMPOUNDED PRESCRIPTION CPAP machine at 10 cm H2O with Humidification, nasal mask and suppliesDx: G47.33 CPAP Initiate CPAP @ 10 cm of water with humidification. Mask (per patient preference) optional chin strap (if indicated) , filters, tubing, humidifier and lifetime supplies. albuterol HFA (PROAIR HFA) 90 mcg/actuation inhaler Inhale 2 Puffs as instructed every 4 hours as needed. No current facility-administered medications for this visit. ALLERGIES: ALLERGIES Allergen Reactions - Ambien [Zolpidem Ta* Anaphylaxis - Penicillins Unknown - Dicyclomine Other: See Comments sheila VITALS: BP 122/80 Pulse 70 Temp 36.2 ?C (97.2 ?F) (Tympanic) Resp 16 Wt (!) 149.2 kg (329 lb) SpO2 96% BMI 44.62 kg/m? PHYSICAL EXAM: GEN: Pleasant, in no acute distress. HEENT: PERRL, EOMI, conjunctiva clear Ears: canals clear, TMs without erythema, bulge, or effusion Sinuses: non-tender frontal sinus, non-tender maxillary sinuses Throat: moist mucous membranes, pharyngeal erythema, no exudate Neck: supple, no thyromegaly, no lymphadenopathy HEART: regular rate and rhythm, no murmurs LUNGS: clear to auscultation, no wheezes or crackles, no increased WOB ASSESSMENT/PLAN: 1. Sore throat - ICD9: 462, ICD10: J02.9 Rapid strep negative. - Discussed supportive care treatment with rest. Servando Gold MD Referring Provider: SELF [200] Allergies As of Date: 04/19/2018 Noted Allergy Reaction AMBIEN (ZOLPIDEM TARTRATE) 05/14/2013 10 - Anaphylaxis PENICILLINS 04/03/2013 16 - Unknown DICYCLOMINE 05/14/2013 14 - Other: See Comments Gali: sheila Date Reviewed: 04/19/2018 Reviewed by: Rufina Mohamud LPN - Fully Assessed Reason for Visit: fever, head and chest congestion, and ST [Other] Cmt: x 1 day-gets URI's frm C- pap machine Primary Visit Diagnosis:Sore throat [J02.9] Order(s):RAPID STREP TEST B/O [[id number]] Order #: [id number] Prescriptions as of 04/19/2018 Sig: PAROXETINE 40 MG TABLET Take 1 tablet by mouth once d* BUSPIRONE 7.5 MG TABLET Take 1 tablet by mouth twice * RANITIDINE 150 MG TABLET Take 1 tablet by mouth twice * COMPOUNDED PRESCRIPTION CPAP machine at 10 cm H2O wit* CPAP Initiate CPAP @ 10 cm of wate* ALBUTEROL SULFATE HFA 90 MCG/* Inhale 2 Puffs as instructed * Problem List As Of Date 04/19/2018 Noted Resolved Anxiety [F41.9] Depression [F32.9] Panic attack [F41.0] Ex-smoker [Z87.891] More... Allergic rhinitis [J30.9] Hypogonadism, testicular [E29.1] Sleep apnea, obstructive [G47.33] 08/30/2013 Lumbago [M54.5] JUANJO (obstructive sleep apnea) [G47.33] INVALID FOR* More... Dyslipidemia [E78.5] INVALID FOR* More... Gastroesophageal reflux disease without esophag*INVALID FOR* Proteinuria [R80.9] INVALID FOR* Obesity, Class III, BMI 40-49.9 (morbid obesity*INVALID FOR* Left lateral epicondylitis [M77.12] INVALID FOR* Elevated fasting blood sugar [R73.01] INVALID FOR* Screening for prostate cancer [Z12.5] INVALID FOR* Well adult exam [Z00.00] INVALID FOR* More... Screening for colon cancer [Z12.11] INVALID FOR* Colon cancer screening [Z12.11] INVALID FOR* More... GERD (gastroesophageal reflux disease) [K21.9] INVALID FOR* More... Letter Text [facility] [address], [place] [address] 04/19/2018 Calvin Cabrera [facility]# [id number] [address] [address] TO WHOM IT MAY CONCERN: This is to confirm that Calvin Cabrera had an appointment and was seen at the [facility] [place] [facility] in the Department of Urgent Care by Servando Gold MD on 04/19/2018 for illness. Sincerely , Servando Gold MD Encounter Status:Closed by SERVANDO GODL MD on 04/19/18 PROGRESS Observed: 01/29/2018 Status: COMPLETED Source: [place] 11:[address] [facility] REPOSITORY HNO ID: [id number] Author: Sydnee Lira Service: (none) Author Type: Nurse Practitioner Type: Progress Notes Filed: 01/29/2018 11:56 AM Note Text: Subjective HPI Calvin Cabrera is a 52 year old male who presents with diarrhea and some nausea for the past 4 days. He has taken imodium AD at home. He has some abdominal cramping. He had a colonoscopy and EGD one month ago, as a routine screening. It showed esophagitis, otherwise normal. He is having diarrhea 3-4 times a day. He denies new medications. Review of Systems Constitutional: Negative. Negative for fever. Respiratory: Negative. Cardiovascular: Negative. Gastrointestinal: Positive for abdominal pain (cramping), diarrhea and nausea. Negative for vomiting. BP 118/86 Pulse 100 Temp 36.8 ?C (98.2 ?F) (Left Tympanic) Resp 12 Wt (!) 145.6 kg (321 lb) BMI 43.54 kg/m? PAST MEDICAL HISTORY Diagnosis Date - Allergic rhinitis - Anxiety - Depression - GERD (gastroesophageal reflux disease) - Hypogonadism, testicular - Lumbago - Obesity - Panic attack - Sleep apnea, obstructive - Tobacco abuse quite 2006 ( aprox 20 pack yrs) PAST SURGICAL HISTORY Procedure Laterality Date - COLONOSCOP W/ OR W/O BRSH SPEC 12/20/2017 Colonoscopy - EGD W/O OR W/BRUSH/WASH 12/20/2017 EGD - ELBOW RIGHT Right 2013 - SEPTOPLASTY - TONSILLECTOMY HX ALLERGIES Ambien [Zolpidem Tartrate]; Penicillins; Dicyclomine MEDICATIONS PARoxetine (PAXIL) 40 mg tablet Take 1 tablet by mouth once daily. busPIRone HCl 7.5 mg tablet Take 1 tablet by mouth twice daily. ranitidine (ZANTAC) 150 mg tablet Take 1 tablet by mouth twice daily. albuterol HFA (PROAIR HFA) 90 mcg/actuation inhaler Inhale 2 Puffs as instructed every 4 hours as needed. COMPOUNDED PRESCRIPTION CPAP machine at 10 cm H2O with Humidification, nasal mask and suppliesDx: G47.33 CPAP Initiate CPAP @ 10 cm of water with humidification. Mask (per patient preference) optional chin strap (if indicated) , filters, tubing, humidifier and lifetime supplies. FAMILY HISTORY Problem Relation Age of Onset - Diabetes Maternal Grandmother - Hypertension Father - other (parkenson's) Father - Heart disease Brother valve disease Social History Substance Use Topics - Smoking status: Former Smoker - Smokeless tobacco: Current User Types: Chew Comment: around 2002 - Alcohol use Yes Comment: occasional beer Objective Physical Exam Constitutional: He is well-developed, well-nourished, and in no distress. Cardiovascular: Normal rate and regular rhythm. Pulmonary/Chest: Effort normal and breath sounds normal. Abdominal: Soft. Normal appearance and bowel sounds are normal. He exhibits no distension and no mass. There is no hepatosplenomegaly. There is no tenderness. There is no guarding. Neurological: He is alert. Skin: Skin is warm and dry. Nursing note and vitals reviewed. ASSESSMENT/PLAN: 1. Diarrhea, unspecified type - ICD9: 787.91, ICD10: R19.7 - ENTERIC BACTERIAL PANEL BY PCR if not resolving with imodium - Follow-up with your PCP in 3-5 days if symptoms have not improved or sooner if symptoms worsen - Discussed red flags and need for immediate medical evaluation if any occur. - Discussed supportive care treatment with fluids, rest and analgesia. - Discussed expected course of illness Sydnee Lira APRN.CNP CNOV Observed: 01/29/2018 Status: COMPLETED Source: [place] 11:[address] [facility] REPOSITORY Office Visit ([facility]) DIANE CABRERARY ([id number]) 1965 M Date Time Provider Department 01/29/18 11:15 AM SYDNEE LIRA ([facility]) [facility] During your visit today, we recorded the following information about you: Temperature Pulse Respiration Blood pressure 98.2 degrees 100/minute 12/minute 118/86 Weight 145.6 kg Sydnee Lira APRN.CNP 01/29/2018 11:56 AM Signed Subjective HPI Calvin Cabrera is a 52 year old male who presents with diarrhea and some nausea for the past 4 days. He has taken imodium AD at home. He has some abdominal cramping. He had a colonoscopy and EGD one month ago, as a routine screening. It showed esophagitis, otherwise normal. He is having diarrhea 3-4 times a day. He denies new medications. Review of Systems Constitutional: Negative. Negative for fever. Respiratory: Negative. Cardiovascular: Negative. Gastrointestinal: Positive for abdominal pain (cramping), diarrhea and nausea. Negative for vomiting. BP 118/86 Pulse 100 Temp 36.8 ?C (98.2 ?F) (Left Tympanic) Resp 12 Wt (!) 145.6 kg (321 lb) BMI 43.54 kg/m? PAST MEDICAL HISTORY Diagnosis Date - Allergic rhinitis - Anxiety - Depression - GERD (gastroesophageal reflux disease) - Hypogonadism, testicular - Lumbago - Obesity - Panic attack - Sleep apnea, obstructive - Tobacco abuse quite 2006 ( aprox 20 pack yrs) PAST SURGICAL HISTORY Procedure Laterality Date - COLONOSCOP W/ OR W/O BRSH SPEC 12/20/2017 Colonoscopy - EGD W/O OR W/BRUSH/WASH 12/20/2017 EGD - ELBOW RIGHT Right 2014 - SEPTOPLASTY - TONSILLECTOMY HX ALLERGIES Ambien [Zolpidem Tartrate]; Penicillins; Dicyclomine MEDICATIONS PARoxetine (PAXIL) 40 mg tablet Take 1 tablet by mouth once daily. busPIRone HCl 7.5 mg tablet Take 1 tablet by mouth twice daily. ranitidine (ZANTAC) 150 mg tablet Take 1 tablet by mouth twice daily. albuterol HFA (PROAIR HFA) 90 mcg/actuation inhaler Inhale 2 Puffs as instructed every 4 hours as needed. COMPOUNDED PRESCRIPTION CPAP machine at 10 cm H2O with Humidification, nasal mask and suppliesDx: G47.33 CPAP Initiate CPAP @ 10 cm of water with humidification. Mask (per patient preference) optional chin strap (if indicated) , filters, tubing, humidifier and lifetime supplies. FAMILY HISTORY Problem Relation Age of Onset - Diabetes Maternal Grandmother - Hypertension Father - other (parkenson's) Father - Heart disease Brother valve disease Social History Substance Use Topics - Smoking status: Former Smoker - Smokeless tobacco: Current User Types: Chew Comment: around 2002 - Alcohol use Yes Comment: occasional beer Objective Physical Exam Constitutional: He is well-developed, well-nourished, and in no distress. Cardiovascular: Normal rate and regular rhythm. Pulmonary/Chest: Effort normal and breath sounds normal. Abdominal: Soft. Normal appearance and bowel sounds are normal. He exhibits no distension and no mass. There is no hepatosplenomegaly. There is no tenderness. There is no guarding. Neurological: He is alert. Skin: Skin is warm and dry. Nursing note and vitals reviewed. ASSESSMENT/PLAN: 1. Diarrhea, unspecified type - ICD9: 787.91, ICD10: R19.7 - ENTERIC BACTERIAL PANEL BY PCR if not resolving with imodium - Follow-up with your PCP in 3-5 days if symptoms have not improved or sooner if symptoms worsen - Discussed red flags and need for immediate medical evaluation if any occur. - Discussed supportive care treatment with fluids, rest and analgesia. - Discussed expected course of illness YANDEL Moore APRN.CNP 01/29/2018 11:33 AM Signed Continue imodium. Stool testing as directed. ASSESSMENT/PLAN: 1. Diarrhea, unspecified type - ICD9: 787.91, ICD10: R19.7 - ENTERIC BACTERIAL PANEL BY PCR- come to lab to get stool collection kit. Sydnee Lira APRN.CNP DIARRHEA Diarrhea can be caused by many different conditions. The most common cause is viral illness. Food poisoning, bacterial infection, and reactions to medicine (especially antibiotics and antacids) may also be the cause. Most of the time diarrhea improves after 2-3 days of rest and oral fluid replacement. You should drink enough clear fluids (water, sodas, Gatorade) to prevent dehydration. Adults must drink at least 2-3 quarts daily. Solid foods and dairy products must be avoided until your illness improves; then only small amounts may be included in your diet for several days. Medicine to control cramping and diarrhea may be helpful. If you have a fever or blood in the stool, however, these medicines should be avoided as they may prolong your illness. Antibiotics can speed recovery from diarrhea due to some bacterial infections, but may cause complications. Please call your doctor or the emergency department if your diarrhea does not get better in 3 days, or if you have fever, blood in the stool, vomiting, or become more dehydrated. Referring Provider: SELF [[id number]] Allergies As of Date: 01/29/2018 Noted Allergy Reaction AMBIEN (ZOLPIDEM TARTRATE) 05/14/2013 10 - Anaphylaxis PENICILLINS 04/03/2013 16 - Unknown DICYCLOMINE 05/14/2013 14 - Other: See Comments Comments: sheila Date Reviewed: 01/29/2018 Reviewed by: Sydnee Lira - Fully Assessed Reason for Visit: Diarrhea [35] Primary Visit Diagnosis:Diarrhea, unspecified type [R19.7] Order(s):ENTERIC BACTERIAL PANEL BY PCR [SQSTLPCR] Order #: [id number] FUTURE Prescriptions as of 01/29/2018 Sig: PAROXETINE 40 MG TABLET Take 1 tablet by mouth once d* BUSPIRONE 7.5 MG TABLET Take 1 tablet by mouth twice * RANITIDINE 150 MG TABLET Take 1 tablet by mouth twice * ALBUTEROL SULFATE HFA 90 MCG/* Inhale 2 Puffs as instructed * COMPOUNDED PRESCRIPTION CPAP machine at 10 cm H2O wit* CPAP Initiate CPAP @ 10 cm of wate* Problem List As Of Date 01/29/2018 Noted Resolved Anxiety [F41.9] Priority: A Depression [F32.9] Priority: A Panic attack [F41.0] Priority: A Ex-smoker [Z87.891] Priority: C More... Allergic rhinitis [J30.9] Priority: B Hypogonadism, testicular [E29.1] Priority: C Sleep apnea, obstructive [G47.33] 08/30/2013 Lumbago [M54.5] Priority: D JUANJO (obstructive sleep apnea) [G47.33] INVALID FOR* Priority: B More... Dyslipidemia [E78.5] INVALID FOR* Priority: A More... Gastroesophageal reflux disease without esophag*INVALID FOR* Priority: A Proteinuria [R80.9] INVALID FOR* Obesity, Class III, BMI 40-49.9 (morbid obesity*INVALID FOR* Priority: B Left lateral epicondylitis [M77.12] INVALID FOR* Elevated fasting blood sugar [R73.01] INVALID FOR* Priority: A Screening for prostate cancer [Z12.5] INVALID FOR* Well adult exam [Z00.00] INVALID FOR* Priority: E More... Screening for colon cancer [Z12.11] INVALID FOR* Colon cancer screening [Z12.11] INVALID FOR* More... GERD (gastroesophageal reflux disease) [K21.9] INVALID FOR* More... Other instructions from your clinician: Continue imodium. Stool testing as directed. ASSESSMENT/PLAN: 1. Diarrhea, unspecified type - ICD9: 787.91, ICD10: R19.7 - ENTERIC BACTERIAL PANEL BY PCR- come to lab to get stool collection kit. Sydnee Praisler-Wood, SLIP BRIDGE OPERATOR.PHARMACY OPERATIONS COORDINATOR DIARRHEA Diarrhea can be caused by many different conditions. The most common cause is viral illness. Food poisoning, bacterial infection, and reactions to medicine (especially antibiotics and antacids) may also be the cause. Most of the time diarrhea improves after 2- 3 days of rest and oral fluid replacement. You should drink enough clear fluids (water, sodas, Gatorade) to prevent dehydration. Adults must drink at least 2-3 quarts daily. Solid foods and dairy products must be avoided until your illness improves; then only small amounts may be included in your diet for several days. Medicine to control cramping and diarrhea may be helpful. If you have a fever or blood in the stool, however, these medicines should be avoided as they may prolong your illness. Antibiotics can speed recovery from diarrhea due to some bacterial infections, but may cause complications. Please call your doctor or the emergency department if your diarrhea does not get better in 3 days, or if you have fever, blood in the stool, vomiting, or become more dehydrated. Encounter Status:Closed by SYDNEE LIRA on 01/29/18 PROGRESS Observed: 12/27/2017 Status: COMPLETED Source: [place] 11:[address] [facility] [place] REPOSITORY [facility] ID: [id number] Author: Floresita Fritz (Pa) Service: (none) Author Type: Physician Gravel Machine Operator Type: Progress Notes Filed: 12/27/2017 12:06 PM Note Text: FOLLOW UP VISIT - ENDOSCOPY NAME: Calvin [facility] NO.: [id number] DATE OF SERVICE: 12/27/2017 : 1965 REFERRING PHYSICIAN: Viviana Lorenzo MD Calvin is a patient I am following with Dr. Pratt for screening colonoscopy, GERD and chewing tobacco use. Dr. Pratt performed upper and lower endoscopy on 12/23/17. The patient was found to have a normal appearing colon, and no ulcerations or worrisome findings on EGD. Biopsies were taken to rule out esophagitis. Pathology demonstrated: FINAL DIAGNOSIS: ?A) STOMACH, ANTRUM, BIOPSY - GASTRIC TYPE MUCOSA WITH MILD FEATURES OF REACTIVE GASTROPATHY AND MINIMAL CHRONIC INFLAMMATION. IMMUNOHISTOCHEMICAL STAIN FOR HELICOBACTER PYLORI IS NEGATIVE FOR MICROORGANISMS. B) ESOPHAGUS, GE JUNCTION, BIOPSY - SQUAMOUS MUCOSA WITH MILD FEATURES OF CHRONIC ESOPHAGITIS. ?NO GLANDULAR EPITHELIUM PRESENT FOR EVALUATION. ?SEE COMMENT. COMMENT: In part B special stain for PAS was reviewed. The patient notes no complaints since the procedure. VITALS: There were no vitals taken for this visit. On examination, the abdomen is benign. Assessment IMPRESSION: s/p upper and lower endoscopy, normal colon, chronic esophagitis PLAN: If the patient notes any problems or changes in bowel function, the patient should contact me immediately. Recommend daily PPI for 2-3 months for GERD, in addition to dietary and lifestyle modifications as discussed. Strongly recommend tobacco cessation. I recommend follow up colonoscopy in 10 years, and consider repeat EGD in 3 years if still using tobacco or prn if reflux symptoms recur. Patient verbalized understanding of all above and agreed with the plan Diagnoses: (K21.0) GERD with esophagitis (primary encounter diagnosis) (Z98.890) S/P endoscopy I spent 20 minutes in the visit, with more than 50% of the total [id number] time of the visit in counseling / coordination of care. Floresita Fritz PA-C CNOV Observed: 12/27/2017 Status: COMPLETED Source: [place] 9:[address] [facility] REPOSITORY Office Visit (GENSWS) CALVIN CABRERA ([id number]) 1965 M Date Time Provider Department 12/27/17 9:00 AM FLORESITA FRITZ) GENSWS During your visit today, we recorded the following information about you: Floresita Fritz PA-C 12/27/2017 9:02 AM Signed -Continue PPI daily for at least 2-3 months -Limit caffeine intake The following instructions are important for you related to your office visit today with the [facility]. INSTRUCTIONS FOLLOWING A NORMAL COLONOSCOPY 10YR I discussed with you the findings of your colonoscopy. Since there were no worrisome abnormalities, I recommend you undergo repeat endoscopic screening every 10 years. This is the current recommendation for colon cancer screening. If you note bleeding, change in bowel habits, or other suspicious colon related symptoms before that time, those symptoms should be evaluated as necessary. And INSTRUCTIONS FOR PEPTIC ULCER DISEASE - ESOPHAGITIS I discussed with you the findings of your upper endoscopy. Your upper endoscopy demonstrated esophagitis Esophagitis may be a form of peptic irritation, with acid moving from the stomach to the esophagus (gastroesophageal reflux) Factors that increase acid production include smoking and stress. If you smoke, stopping smoking will often cure these issues without needing other medications. Over the counter medications including antiacids and acid reducing medications including H2 blockers (Zantac and the like) and proton pump inhibitors (prilosec, prevacid and the like) neutralize or prevent acid production. Prescription strength proton pump inhibitors (PPIs) may be necessary if your symptoms persist. Carafate may be added to PPI treatment in refractory cases. Avoiding smoking, alcohol and antiinflammatory medications are important in the successful treatment of reflux esophagitis and peptic diseases. Other factors that contribute to GERD and esophagitis are being overweight, eating large meals before laying down and certain foods. Weight loss will help improve many GERD complaints. Remaining upright after eating large meals and having a small supper will also help symptoms. Avoiding food that contribute to reflux - chocolate, caffeine, cheddar cheese may also help. Follow up upper endoscopy may be recommended to assure healing of the esophagus. New or worsening symptoms such are epigastric pain, burning, difficulty swallowing or food sticking should be relayed to your physician. Feeling full early after eating, or black, tarry, foul smelling stools are also worrisome. If you have any difficulties or concerns, you should contact our office immediately. If you note any additional difficulties, questions, or concerns, you should contact our office immediately @ [phone] and ask to be transferred to the General Surgery department. Floresita Fritz PA-C 12/27/2017 12:06 PM Signed FOLLOW UP VISIT - ENDOSCOPY NAME: Calvin Cabrera [facility] NO.: [id number] DATE OF SERVICE: 12/27/2017 : 1965 REFERRING PHYSICIAN: Viviana Lorenzo MD Calvin is a patient I am following with Dr. Pratt for screening colonoscopy, GERD and chewing tobacco use. Dr. Pratt performed upper and lower endoscopy on 12/23/17. The patient was found to have a normal appearing colon, and no ulcerations or worrisome findings on EGD. Biopsies were taken to rule out esophagitis. Pathology demonstrated: FINAL DIAGNOSIS: ?A) STOMACH, ANTRUM, BIOPSY - GASTRIC TYPE MUCOSA WITH MILD FEATURES OF REACTIVE GASTROPATHY AND MINIMAL CHRONIC INFLAMMATION. IMMUNOHISTOCHEMICAL STAIN FOR HELICOBACTER PYLORI IS NEGATIVE FOR MICROORGANISMS. B) ESOPHAGUS, GE JUNCTION, BIOPSY - SQUAMOUS MUCOSA WITH MILD FEATURES OF CHRONIC ESOPHAGITIS. ?NO GLANDULAR EPITHELIUM PRESENT FOR EVALUATION. ?SEE COMMENT. COMMENT: In part B special stain for PAS was reviewed. The patient notes no complaints since the procedure. VITALS: There were no vitals taken for this visit. On examination, the abdomen is benign. Assessment IMPRESSION: s/p upper and lower endoscopy, normal colon, chronic esophagitis PLAN: If the patient notes any problems or changes in bowel function, the patient should contact me immediately. Recommend daily PPI for 2-3 months for GERD, in addition to dietary and lifestyle modifications as discussed. Strongly recommend tobacco cessation. I recommend follow up colonoscopy in 10 years, and consider repeat EGD in 3 years if still using tobacco or prn if reflux symptoms recur. Patient verbalized understanding of all above and agreed with the plan Diagnoses: (K21.0) GERD with esophagitis (primary encounter diagnosis) (Z98.890) S/P endoscopy I spent 20 minutes in the visit, with more than 50% of the total [id number] time of the visit in counseling / coordination of care. Floresita Fritz PA-C Referring Provider: VIVIANA LORENZO [[id number]] Allergies As of Date: 12/27/2017 Noted Allergy Reaction AMBIEN (ZOLPIDEM TARTRATE) 05/14/2013 10 - Anaphylaxis PENICILLINS 04/03/2013 16 - Unknown DICYCLOMINE 05/14/2013 14 - Other: See Comments Comments: sheila Date Reviewed: 12/27/2017 Reviewed by: Niya Sims LPN - Fully Assessed Reason for Visit: Post Op [174] Primary Visit Diagnosis:GERD with esophagitis [K21.0] Other Visit Diagnosis:S/P endoscopy [Z98.890] Prescriptions as of 12/27/2017 Sig: PAROXETINE 40 MG TABLET Take 1 tablet by mouth once d* BUSPIRONE 7.5 MG TABLET Take 1 tablet by mouth twice * RANITIDINE 150 MG TABLET Take 1 tablet by mouth twice * ALBUTEROL SULFATE HFA 90 MCG/* Inhale 2 Puffs as instructed * COMPOUNDED PRESCRIPTION CPAP machine at 10 cm H2O wit* CPAP Initiate CPAP @ 10 cm of wate* Problem List As Of Date 12/27/2017 Noted Resolved Anxiety [F41.9] Priority: A Depression [F32.9] Priority: A Panic attack [F41.0] Priority: A Ex-smoker [Z87.891] Priority: C More... Allergic rhinitis [J30.9] Priority: B Hypogonadism, testicular [E29.1] Priority: C Sleep apnea, obstructive [G47.33] 08/30/2013 Lumbago [M54.5] Priority: D JUANJO (obstructive sleep apnea) [G47.33] INVALID FOR* Priority: B More... Dyslipidemia [E78.5] INVALID FOR* Priority: A More... Gastroesophageal reflux disease without esophag*INVALID FOR* Priority: A Proteinuria [R80.9] INVALID FOR* Obesity, Class III, BMI 40-49.9 (morbid obesity*INVALID FOR* Priority: B Left lateral epicondylitis [M77.12] INVALID FOR* Elevated fasting blood sugar [R73.01] INVALID FOR* Priority: A Screening for prostate cancer [Z12.5] INVALID FOR* Well adult exam [Z00.00] INVALID FOR* Priority: E More... Screening for colon cancer [Z12.11] INVALID FOR* Colon cancer screening [Z12.11] INVALID FOR* More... GERD (gastroesophageal reflux disease) [K21.9] INVALID FOR* More... Other instructions from your clinician: -Continue PPI daily for at least 2-3 months -Limit caffeine intake The following instructions are important for you related to your office visit today with the [facility]. INSTRUCTIONS FOLLOWING A NORMAL COLONOSCOPY 10YR I discussed with you the findings of your colonoscopy. Since there were no worrisome abnormalities, I recommend you undergo repeat endoscopic screening every 10 years. This is the current recommendation for colon cancer screening. If you note bleeding, change in bowel habits, or other suspicious colon related symptoms before that time, those symptoms should be evaluated as necessary. And INSTRUCTIONS FOR PEPTIC ULCER DISEASE - ESOPHAGITIS I discussed with you the findings of your upper endoscopy. Your upper endoscopy demonstrated esophagitis Esophagitis may be a form of peptic irritation, with acid moving from the stomach to the esophagus (gastroesophageal reflux) Factors that increase acid production include smoking and stress. If you smoke, stopping smoking will often cure these issues without needing other medications. Over the counter medications including antiacids and acid reducing medications including H2 blockers (Zantac and the like) and proton pump inhibitors (prilosec, prevacid and the like) neutralize or prevent acid production. Prescription strength proton pump inhibitors (PPIs) may be necessary if your symptoms persist. Carafate may be added to PPI treatment in refractory cases. Avoiding smoking, alcohol and antiinflammatory medications are important in the successful treatment of reflux esophagitis and peptic diseases. Other factors that contribute to GERD and esophagitis are being overweight, eating large meals before laying down and certain foods. Weight loss will help improve many GERD complaints. Remaining upright after eating large meals and having a small supper will also help symptoms. Avoiding food that contribute to reflux - chocolate, caffeine, cheddar cheese may also help. Follow up upper endoscopy may be recommended to assure healing of the esophagus. New or worsening symptoms such are epigastric pain, burning, difficulty swallowing or food sticking should be relayed to your physician. Feeling full early after eating, or black, tarry, foul smelling stools are also worrisome. If you have any difficulties or concerns, you should contact our office immediately. If you note any additional difficulties, questions, or concerns, you should contact our office immediately @ [phone] and ask to be transferred to the General Surgery department. Encounter Status:Closed by FLORESITA FRITZ PA-C on 12/27/17 NURSING PROG Observed: 12/20/2017 Status: COMPLETED Source: [place] 12:[address] [facility] REPOSITORY [facility] ID: [id number] Author: Una (Rn) ARGELIA Madsen Service: Nursing Author Type: Registered Nurse Type: Nursing Progress Note Filed: 12/20/2017 2:27 PM Note Text: Patient taking po fluids and po food without difficulty. Patient voiding without difficulty. Patient denies nausea and pain . Discharge instructions given to patient. ANES POST Observed: 12/20/2017 Status: COMPLETED Source: [place] 12:[address] [facility] REPOSITORY [facility] ID: [id number] Author: Tan Zavaleta Service: (none) Author Type: Physician Type: Anesthesia PostOp Filed: 12/20/2017 3:02 PM Note Text: POST ANESTHESIA EVALUATION NOTE SERVICE DATE: 12/20/2017 SERVICE TIME: 1220 : 1965 Vitals: 12/20/17 0920 12/20/17 1144 Temp: 36.4 ?C (97.6 ?F) 36.6 ?C (97.8 ?F) 12/20/17 1155 12/20/17 1200 12/20/17 1205 12/20/17 1210 BP: 103/65 104/73 113/69 135/76 12/20/17 1155 12/20/17 1200 12/20/17 1205 12/20/17 1210 Pulse: 79 80 78 72 12/20/17 1155 12/20/17 1200 12/20/17 1205 12/20/17 1210 Resp: 16 16 16 16 12/20/17 1155 12/20/17 1200 12/20/17 1205 12/20/17 1210 SpO2: 94% 96% 95% 96% Validated Vital Signs: Yes POST ANES STATUS: No apparent anesthetic complications. The patient is appropriately hydrated with stable respiratory and cardiovascular status. Patient has safe and adequate airway control. The patient has appropriate pain relief and no significant post operative nausea or vomiting. The patient has achieved baseline mental status. Further assessment by Anesthesia Service: None Other Remarks: SIGNATURE: Tan Zavaleta MD PATIENT NAME: Calvin Cabrera DATE: December 20, 2017 TIME: 3:01 PM PAGER/CONTACT #: none BRIEF OP NOT Observed: 12/20/2017 Status: COMPLETED Source: [place] 11:[address] [facility] REPOSITORY [facility] ID: [id number] Author: Alida Pratt Service: (none) Author Type: Physician Type: Brief Op Note Filed: 12/20/2017 11:41 AM Note Text: BRIEF OPERATIVE NOTE SURGERY DATE: 12/20/2017 Incision/Procedure Start Time: 10:56 Incision Close/Procedure End Time: 11:31 Surgeon(s)/Proceduralist(s) and Gravel Machine Operator(s): Terence Procedures: EGD with biopsies, colonoscopy Anesthesia: MAC Findings: normal colon, normal upper endoscopy Estimated Blood Loss: minimal Specimens: mucosal biopsies of antrum of stomach and GE junction Complications: None Preop Diagnosis: GERD, screening for colon cancer Postop Diagnosis: same SIGNATURE: Alida Pratt MD PATIENT NAME: Calvin Cabrera DATE: December 20, 2017 TIME: 11:40 AM PAGER/CONTACT #: ANES PREOP Observed: 12/20/2017 Status: COMPLETED Source: [place] 10:[address] [facility] REPOSITORY [facility] ID: [id number] Author: Tan Zavaleta Service: (none) Author Type: Physician Type: Anesthesia PreOp Filed: 12/20/2017 10:45 AM Note Text: ANESTHESIOLOGY PREOPERATIVE ASSESSMENT SERVICE DATE: 12/20/2017 : 1965 SERVICE TIME: 1030 Surgeon(s): Alida Pratt Procedure(s) (LRB): COLONOSCOPY (N/A) EGD (N/A) Estimated body mass index is 42.04 kg/m? as calculated from the following: Height as of this encounter: 182.9 cm (6'). Weight as of this encounter: 140.6 kg (310 lb). MOST RECENT HEMATOCRIT AND POTASSIUM RESULTS: Hematocrit 41.2 07/06/2014 Potassium 3.9 04/17/2016 ANES DOS/PREOP NOTE: Vitals: 12/20/17 0920 12/20/17 1043 BP: 108/77 135/89 Pulse: 73 (!) 53 Resp: 18 18 Temp: 36.4 ?C (97.6 ?F) SpO2: 96% Weight: (!) 140.6 kg (310 lb) Height: 182.9 cm (6') ACTIVE PROBLEM LIST Anxiety Depression Panic Attack Ex-Smoker Allergic Rhinitis Hypogonadism, Testicular Lumbago Juanjo (Obstructive Sleep Apnea) Dyslipidemia Gastroesophageal Reflux Disease Without Esophagitis Proteinuria Obesity, Class Iii, Bmi 40-49.9 (Morbid Obesity) (Hcc) Left Lateral Epicondylitis Elevated Fasting Blood Sugar Screening for Prostate Cancer Well Adult Exam Screening for Colon Cancer Colon Cancer Screening Gerd (Gastroesophageal Reflux Disease) PAST MEDICAL HISTORY Diagnosis Date - Allergic rhinitis - Anxiety - Depression - GERD (gastroesophageal reflux disease) - Hypogonadism, testicular - Lumbago - Obesity - Panic attack - Sleep apnea, obstructive - Tobacco abuse quite 2006 ( aprox 20 pack yrs) PAST SURGICAL HISTORY Procedure Laterality Date - ELBOW RIGHT Right 2013 - SEPTOPLASTY - TONSILLECTOMY HX FAMILY HISTORY Problem Relation Age of Onset - Diabetes Maternal Grandmother - Hypertension Father - parkenson's [OTHER] Father - Heart disease Brother valve disease Social History: Social History Substance Use Topics - Smoking status: Former Smoker - Smokeless tobacco: Current User Types: Chew Comment: around 2002 - Alcohol use Yes Comment: occasional beer No current facility-administered medications on file prior to encounter. Current Outpatient Prescriptions on File Prior to Encounter: PARoxetine (PAXIL) 40 mg tablet Take 1 tablet by mouth once daily. busPIRone HCl 7.5 mg tablet Take 1 tablet by mouth twice daily. albuterol HFA (PROAIR HFA) 90 mcg/actuation inhaler Inhale 2 Puffs as instructed every 4 hours as needed. CPAP Initiate CPAP @ 10 cm of water with humidification. Mask (per patient preference) optional chin strap (if indicated) , filters, tubing, humidifier and lifetime supplies. ranitidine (ZANTAC) 150 mg tablet Take 1 tablet by mouth twice daily. COMPOUNDED PRESCRIPTION CPAP machine at 10 cm H2O with Humidification, nasal mask and suppliesDx: G47.33 Current Facility-Administered Medications: lidocaine 10 mg/mL (1 %) 1-2 mg injection (XYLOCAINE) 0.1- 0.2 mL INTRADERMAL PRN Alida Pratt lactated ringers infusion 5-30 mL/hr INTRAVENOUS CONTINUOUS Alida Pratt Last Rate: 30 mL/hr at 12/20/17 1000 30 mL/hr at 12/20/17 1000 Allergies: ALLERGIES Allergen Reactions - Ambien [Zolpidem Ta* Anaphylaxis - Penicillins Unknown - Dicyclomine Other: See Comments jitters REVIEW OF SYSTEMS: REVIEW OF SYSTEMS: As stated in Active Problem List/ Past Medical History ANESTHESIOLOGY REVIEW: Airway Assessment: MP 1; Neck ROM: Full ROM without neurologic symptoms; Airway Evaluation: No significant abnormalities and Thick neck Symptoms of Sleep Apnea: Observed apnea Intubation History: No previous history of difficult intubation Dentition: Teeth intact ADDITIONAL PHYSICAL EXAM: Lungs: Patient health status unchanged since recent history and physical. See history and physical for exam findings. Cardiac: Patient health status unchanged since recent history and physical. See history and physical for exam findings. Additional Pertinent Findings: N/A ADVERSE ANESTHESIA EVENT: No history of adverse event FAMILY HIISTORY OF ANESTHESIA: No known issues BLOOD PRODUCTS: Not anticipated for this procedure OTHER MEDICAL PROBLEMS: None I have interviewed and examined the patient. I have reviewed the medical record and/or the pre-anesthesia evaluation, pertinent labs, and test results. Significant changes in the patient's condition since the History and Physical, not otherwise documented in primary service progress notes: No Anesthetic risks, benefits, alternatives, personnel and consent discussed: Yes ANES REVIEW: This contains information obtained greater than 48 hours prior to the Surgery/Procedure. See Day of Surgery Note SIGNATURE: Tan Zavaleta MD PATIENT NAME: Calvin Cabrera DATE: December 20, 2017 TIME: 10:42 AM PAGER/CONTACT #: none ANES PREOP Observed: 12/20/2017 Status: COMPLETED Source: [place] 10:[address] [facility] REPOSITORY O ID: [id number] Author: Tan Zavaleta Service: (none) Author Type: Physician Type: Anesthesia PreOp Filed: 12/20/2017 10:42 AM Note Text: ANESTHESIOLOGY PREOPERATIVE ASSESSMENT SERVICE DATE: 12/20/2017 : 1965 SERVICE TIME: 1030 Surgeon(s): Alida Pratt Procedure(s) (LRB): COLONOSCOPY (N/A) EGD (N/A) Estimated body mass index is 42.04 kg/m? as calculated from the following: Height as of this encounter: 182.9 cm (6'). Weight as of this encounter: 140.6 kg (310 lb). MOST RECENT HEMATOCRIT AND POTASSIUM RESULTS: Hematocrit 41.2 07/06/2014 Potassium 3.9 04/17/2016 ANES DOS/PREOP NOTE: Vitals: 12/20/17 0920 BP: 108/77 Pulse: 73 Resp: 18 Temp: 36.4 ?C (97.6 ?F) SpO2: 96% Weight: (!) 140.6 kg (310 lb) Height: 182.9 cm (6') ACTIVE PROBLEM LIST Anxiety Depression Panic Attack Ex-Smoker Allergic Rhinitis Hypogonadism, Testicular Lumbago Juanjo (Obstructive Sleep Apnea) Dyslipidemia Gastroesophageal Reflux Disease Without Esophagitis Proteinuria Obesity, Class Iii, Bmi 40-49.9 (Morbid Obesity) (Hcc) Left Lateral Epicondylitis Elevated Fasting Blood Sugar Screening for Prostate Cancer Well Adult Exam Screening for Colon Cancer Colon Cancer Screening Gerd (Gastroesophageal Reflux Disease) PAST MEDICAL HISTORY Diagnosis Date - Allergic rhinitis - Anxiety - Depression - GERD (gastroesophageal reflux disease) - Hypogonadism, testicular - Lumbago - Obesity - Panic attack - Sleep apnea, obstructive - Tobacco abuse quite 2006 ( aprox 20 pack yrs) PAST SURGICAL HISTORY Procedure Laterality Date - ELBOW RIGHT Right 2013 - SEPTOPLASTY - TONSILLECTOMY HX FAMILY HISTORY Problem Relation Age of Onset - Diabetes Maternal Grandmother - Hypertension Father - parkenson's [OTHER] Father - Heart disease Brother valve disease Social History: Social History Substance Use Topics - Smoking status: Former Smoker - Smokeless tobacco: Current User Types: Chew Comment: around 2002 - Alcohol use Yes Comment: occasional beer No current facility-administered medications on file prior to encounter. Current Outpatient Prescriptions on File Prior to Encounter: PARoxetine (PAXIL) 40 mg tablet Take 1 tablet by mouth once daily. busPIRone HCl 7.5 mg tablet Take 1 tablet by mouth twice daily. albuterol HFA (PROAIR HFA) 90 mcg/actuation inhaler Inhale 2 Puffs as instructed every 4 hours as needed. CPAP Initiate CPAP @ 10 cm of water with humidification. Mask (per patient preference) optional chin strap (if indicated) , filters, tubing, humidifier and lifetime supplies. ranitidine (ZANTAC) 150 mg tablet Take 1 tablet by mouth twice daily. COMPOUNDED PRESCRIPTION CPAP machine at 10 cm H2O with Humidification, nasal mask and suppliesDx: G47.33 Current Facility-Administered Medications: lidocaine 10 mg/mL (1 %) 1-2 mg injection (XYLOCAINE) 0.1- 0.2 mL INTRADERMAL PRN Alida Pratt lactated ringers infusion 5-30 mL/hr INTRAVENOUS CONTINUOUS Alida Pratt Last Rate: 30 mL/hr at 12/20/17 1000 30 mL/hr at 12/20/17 1000 Allergies: ALLERGIES Allergen Reactions - Ambien [Zolpidem Ta* Anaphylaxis - Penicillins Unknown - Dicyclomine Other: See Comments jeromettmitzy REVIEW OF SYSTEMS: REVIEW OF SYSTEMS: As stated in Active Problem List/ Past Medical History ANESTHESIOLOGY REVIEW: Airway Assessment: MP 1; Neck ROM: Full ROM without neurologic symptoms; Airway Evaluation: No significant abnormalities Symptoms of Sleep Apnea: Snoring, Tired, Observed apnea, Hypertension, BMI > 35, Age over 50 (52 year old), Neck circumference > 15.75 inches and Male gender Intubation History: No previous history of difficult intubation Dentition: Teeth intact ADDITIONAL PHYSICAL EXAM: Lungs: Patient health status unchanged since recent history and physical. See history and physical for exam findings. Cardiac: Patient health status unchanged since recent history and physical. See history and physical for exam findings. Additional Pertinent Findings: N/A ADVERSE ANESTHESIA EVENT: No history of adverse event FAMILY HIISTORY OF ANESTHESIA: No known issues BLOOD PRODUCTS: Not anticipated for this procedure OTHER MEDICAL PROBLEMS: None I have interviewed and examined the patient. I have reviewed the medical record and/or the pre-anesthesia evaluation, pertinent labs, and test results. Significant changes in the patient's condition since the History and Physical, not otherwise documented in primary service progress notes: No Anesthetic risks, benefits, alternatives, personnel and consent discussed: Yes ANES REVIEW: This contains information obtained greater than 48 hours prior to the Surgery/Procedure. See Day of Surgery Note SIGNATURE: Tan Zavaleta MD PATIENT NAME: Calvin Cabrera DATE: December 20, 2017 TIME: 10:40 AM PAGER/CONTACT #: none NURSING PROG Observed: 12/20/2017 Status: COMPLETED Source: [place] 10:[address] [facility] REPOSITORY HNO ID: [id number] Author: Sophie ShellRn) ARGELIA Freedman Service: Nursing Author Type: Registered Nurse Type: Nursing Progress Note Filed: 12/20/2017 10:09 AM Note Text: Nursing Progress Note Patient Name: Calvin Cabrera Patient Location: LD-OR/LD-OR Daily Note: All treatments and procedures were explained. Pre-op and post-op procedures were explained. No questions or concerns were voiced at this time. This note was completed by: Sophie Freedman RN OPERATIVE NO Observed: 12/20/2017 Status: COMPLETED Source: [place] 12:[address] [facility] REPOSITORY HNO ID: [id number] Author: Alida Pratt Service: (none) Author Type: Physician Type: Operative Report Filed: 12/21/2017 11:54 AM Note Text: [facility] - Operative Report SURGEON: Alida Pratt MD PATIENT NAME: CALVIN CABRERA [facility]: [id number] DATE OF SURGERY: 12/20/2017 DATE OF : 1965 SEX/AGE: M/52 PATIENT TYPE: A HOSP S[facility]: [facility] LOCATION: [facility] DATE OF SURGERY: 12/20/2017 SURGEON: Alida Pratt MD LOCATION: [facility]. PREOPERATIVE DIAGNOSIS: Gastroesophageal reflux disease and screening for colon cancer. POSTOPERATIVE DIAGNOSIS: Gastroesophageal reflux disease and screening for colon cancer. PROCEDURE PERFORMED: Esophagogastroduodenoscopy with mucosal biopsies and colonoscopy. ANESTHESIA USED: MAC. SPECIMEN: Mucosal biopsies of antrum and stomach and mucosal biopsies of GE junction. INDICATIONS: Calvin Cabrera is a 52-year-old white male, who presents for screening for colon cancer via colonoscopy. He also presents for esophagogastroduodenoscopy for long-term gastroesophageal reflux disease. He has been counseled for upper and lower endoscopy. He has been counseled of the risks of procedure including, but not limited to infection, bleeding, perforation, GI tract requiring emergency surgery, injury to any internal organs such as liver or spleen, inability to complete the procedure, etc. The patient understands and agrees to proceed. DESCRIPTION OF PROCEDURE: After informed consent was given, the patient was brought to the endoscopy suite. Appropriate time-out protocol was done in the preprocedure area as well as in the endoscopy suite. The patient was then given IV conscious sedation. The patient was placed in left lateral decubitus position. The posterior pharynx was sprayed with local anesthetic. Bite block was then placed. The upper endoscope was lubricated and carefully inserted in the patient's mouth and was then advanced down the esophagus into the stomach through the pylorus into the first then the and second portion of the duodenum. The first and second portion of the duodenum appeared normal. There was no evidence of any ulcers or masses. The endoscope was retracted back into the stomach where there was no evidence of any masses or ulcers. Because the patient has history of gastroesophageal reflux disease, mucosal biopsies were taken of the antrum and stomach for H pylori. The endoscope was then retracted back into the esophagus. The GE junction appeared grossly normal. Mucosal biopsies were taken to rule out esophagitis using cold grasper forceps. The remainder of the esophagus appeared normal. The endoscope was removed intact. The patient tolerated this portion of procedure well. The next procedure was colonoscopy. The colonoscope was lubricated and carefully inserted in the patient's anus and advanced into the rectum. It was then advanced into the sigmoid colon, then left ascending colon, past splenic flexure into transverse colon, past hepatic flexure down the right ascending colon to the cecum. Cecum was identified by confluence of teniae coli, identification of ileocecal valve and appendiceal orifice, and external palpation. The colonoscope was slowly retracted back. There was no evidence of any masses or any polyps throughout the colon. There was no evidence of any ulcers throughout the colon. There was no evidence of any inflammatory mucosal changes throughout the colon. The patient did have some retained green fecal liquid, which required aspiration to be able to visualize the peres adequately and this was done. This took some time. Retroflex view in the rectum revealed minimal hemorrhoidal changes. There was no evidence of any masses. The endoscope was removed intact. Digital examination revealed no lesions in the anal canal. The patient tolerated procedure well and was brought to recovery room in stable condition. RECOMMENDATIONS: Screening colonoscopy in 10 years. Alida Pratt MD LW:cecile /[id number] NURSING PROG Observed: 12/19/2017 Status: COMPLETED Source: [place] 11:[address] [facility] REPOSITORY HNO ID: [id number] Author: Una (Rn) ARGELIA Madsen Service: Nursing Author Type: Registered Nurse Type: Nursing Progress Note Filed: 12/19/2017 11:01 AM Note Text: Pre call completed, arrival time given HOSP Observed: 12/16/2017 Status: COMPLETED Source: [place] 12:[address] [facility] REPOSITORY Patient:Calvin Cabrera MRN: <[id number]> Height:6' 0(1.829 m) Weight:310 lb (140.615 kg) Outpatient Medications as of 12/20/17: PARoxetine (PAXIL) 40 mg tablet busPIRone HCl 7.5 mg tablet ranitidine (ZANTAC) 150 mg tablet albuterol HFA (PROAIR HFA) 90 mcg/actuation inhaler COMPOUNDED PRESCRIPTION CPAP Admission/Clinic Administered Medications as of 12/20/17: lidocaine 10 mg/mL (1 %) 1-2 mg injection (XYLOCAINE) lactated ringers infusion Problem List: Anxiety [F41.9] Depression [F32.9] Panic attack [F41.0] Ex-smoker [Z87.891] Allergic rhinitis [J30.9] Hypogonadism, testicular [E29.1] Lumbago [M54.5] JUANJO (obstructive sleep apnea) [G47.33] Dyslipidemia [E78.5] Gastroesophageal reflux disease without esophagitis [K21.9] Proteinuria [R80.9] Obesity, Class III, BMI 40-49.9 (morbid obesity) (HCC) [E66.01] Left lateral epicondylitis [M77.12] Elevated fasting blood sugar [R73.01] Screening for prostate cancer [Z12.5] Well adult exam [Z00.00] Screening for colon cancer [Z12.11] Colon cancer screening [Z12.11] GERD (gastroesophageal reflux disease) [K21.9] Allergies: Ambien [Zolpidem Tartrate] Penicillins Dicyclomine Date Verified: 12/20/17 Lab Values No results within the last 30 days for the following basenames: K,HCT Progress Notes ([facility]): Luli Duque Ma 11/30/2017 10:58 AM Signed Patient needs to be scheduled for a Colonoscopy/EGD MAC in either [place] or [place] and with Barb or Terence patient had no preference. Please call the patient to set this up. Associated Diagnosis- Gastroesophageal Reflux Disease, esophagitis presence not specified Encounter for screening for malignant neoplasm of colon Luli Sims LPN 11/30/2017 12:41 PM Signed Patient scheduled 12/20 arrive 7a for 8a procedure with Dr. Pratt. Surgical request entered. Progress Notes ([facility]): Viviana Lorenzo MD 11/29/2017 10:53 PM Signed Let patient know breathing test was normal. Yael Macias Ma 11/30/2017 10:11 AM Signed Patient left message to call office back. Please advise below Yael Snider LPN 11/30/2017 10:18 AM Signed Patient notified of the same and verbalizes understanding. NURSING PROG Observed: 12/15/2017 Status: COMPLETED Source: [place] 2:[address] [facility] REPOSITORY HNO ID: [id number] Author: Peri ShellRn) ARGELIA Frye Service: (none) Author Type: Registered Nurse Type: Nursing Progress Note Filed: 12/15/2017 2:50 PM Note Text: Pre op call complete. Advised patient that we will call on Tuesday with arrival time. Denied any questions or concerns. HISTORY PHYSICAL Observed: 11/29/2017 Status: COMPLETED Source: [place] 10:[address] [facility] REPOSITORY HNO ID: [id number] Author: Bernarda ShellData Reporting Analyst) Sincere Service: (none) Author Type: Nurse Practitioner Type: HANDP Filed: 11/29/2017 11:23 AM Note Text: Calvin Cabrera a 52 year old male who is referred by Dr. Lorenzo for a screening colonoscopy. The patient has not been seen previously. The patient denies a family history of colon cancer. Presenting complaint: The patient denies change in bowel habits, rectal bleeding or abdominal pain. Having a bowel movement once or twice a day, to every other day, depending on diet. Taking ranitidine about once a month. Occasional nausea. REVIEW OF SYSTEMS: GENERAL: No unplanned weight loss. RESPIRATORY: Use CPAP. Uses inhalers as needed. Has a pulmonary function test later today. CARDIOVASCULAR: Negative for chest pain, leg swelling, hypertension, CHF or palpitations GI: The patient states that his appetite has been good. He does get hungry. There has been some nausea, no vomiting. He denies dysphagia and denies odynophagia. There has occasionally been indigestion or heartburn. There has partially been regurgitation, if he lays down too soon after eating. Bowel habits have been regular. There has not been diarrhea. There has not been constipation. The patient denies rectal bleeding. There has not been melena. No abdominal pain. PSYCH: Positive for depression and depression that he feels has to do with his sleep HEMATOLOGY/LYMPHOLOGY Negative for prolonged bleeding, bruising easily or swollen nodes ENDOCRINE: Negative for thyroid or diabetes. NEURO: No history of headaches, syncope, paralysis, seizures or tremors All other reviewed and negative other than HPI. PAST MEDICAL HISTORY Diagnosis Date - Allergic rhinitis - Anxiety - Depression - GERD (gastroesophageal reflux disease) - Hypogonadism, testicular - Lumbago - Obesity - Panic attack - Sleep apnea, obstructive - Tobacco abuse quite 2006 ( aprox 20 pack yrs) PAST SURGICAL HISTORY Procedure Laterality Date - SEPTOPLASTY - TONSILLECTOMY HX FAMILY HISTORY Problem Relation Age of Onset - Diabetes Maternal Grandmother - Hypertension Father - kemar's [OTHER] Father - Heart disease Brother valve disease Current Outpatient Prescriptions: PARoxetine (PAXIL) 40 mg tablet Take 1 tablet by mouth once daily. Disp: 30 tablet Rfl: 5 busPIRone HCl 7.5 mg tablet Take 1 tablet by mouth twice daily. Disp: 60 tablet Rfl: 1 ranitidine (ZANTAC) 150 mg tablet Take 1 tablet by mouth twice daily. Disp: 60 tablet Rfl: 5 albuterol HFA (PROAIR HFA) 90 mcg/actuation inhaler Inhale 2 Puffs as instructed every 4 hours as needed. Disp: 1 Inhaler Rfl: 0 COMPOUNDED PRESCRIPTION CPAP machine at 10 cm H2O with Humidification, nasal mask and suppliesDx: G47.33 Disp: 1 Device Rfl: 0 CPAP Initiate CPAP @ 10 cm of water with humidification. Mask (per patient preference) optional chin strap (if indicated) , filters, tubing, humidifier and lifetime supplies. Disp: 1 Device Rfl: 0 No current facility-administered medications for this visit. SOCIAL HISTORY: Patient is . He quit smoking 15 years ago. Has chewed tobacco for about 5 years. Spits and swallows. Calvin reports his alcohol use as rarely having a beer. PHYSICAL EXAMINATION: Blood pressure 111/76, pulse 103, height 182.9 cm (6'), weight (!) 146.1 kg (322 lb). General Appearance: Well appearing, alert, in no acute distress, well-hydrated, well nourished. Skin: Skin color, texture, turgor normal, no suspicious rashes or lesions. Head: Normocephalic, no masses, lesions or abnormalities. Eyes: Anicteric sclera. Oropharynx: Lips, mucosa, and tongue normal, teeth and gums normal, oropharynx normal. Neck: Supple, no adenopathy; thyroid symmetric, normal size. Lungs: Lungs clear to auscultation. No wheezing, rhonchi, rales. Heart: RRR without murmur. Abdomen: Abdomen soft, non-tender. Bowel sounds normal. No masses, organomegaly. Extremities: No deformities, edema, skin discoloration, clubbing or cyanosis. Peripheral Pulses: Normal. Neurologic: Gait normal. Sensation grossly intact. Impression: occasional dyspepsia 2)chewing tobacco use 3)colorectal cancer screening Plan: The patient will be scheduled for an upper endoscopy as well as a colonoscopy, with MAC. Preparation for the procedures, using GoLytely as the laxative, have been explained in detail. The risks, benefits, anticipated outcomes and possible complications were mentioned. I explained the procedure in understandable terms and the patient was given printed material concerning the planned procedure. The patient had the opportunity to ask questions concerning the planned procedure. The patient freely consents to the planned procedure. The patient is encouraged to call with any questions or concerns, or should there be any change in health status between now and the scheduled procedure. I have personally interviewed and examined this patient. I have read the information that the MA documented in this encounter. I spent 30 minutes in the visit, with more than 50% of the total [id number]-mlcx time of the visit in counseling / coordination of care. Bernarda Post RN APRN.HECTOR KHANOV Observed: 11/29/2017 Status: COMPLETED Source: [place] 10:[address] [facility] REPOSITORY Office Visit ([facility]) CALVIN CABRERA ([id number]) 1965 M Date Time Provider Department 11/29/17 10:20 AM [facility]ARDA [facility] ([facility] During your visit today, we recorded the following information about you: Pulse Blood pressure Weight Height 103/minute 111/76 146.1 kg 1.829 m Bernarda Post RN APRN.CNP 11/29/2017 11:23 AM Signed Calvin Cabrera a 52 year old male who is referred by Dr. Lorenzo for a screening colonoscopy. The patient has not been seen previously. The patient denies a family history of colon cancer. Presenting complaint: The patient denies change in bowel habits, rectal bleeding or abdominal pain. Having a bowel movement once or twice a day, to every other day, depending on diet. Taking ranitidine about once a month. Occasional nausea. REVIEW OF SYSTEMS: GENERAL: No unplanned weight loss. RESPIRATORY: Use CPAP. Uses inhalers as needed. Has a pulmonary function test later today. CARDIOVASCULAR: Negative for chest pain, leg swelling, hypertension, CHF or palpitations GI: The patient states that his appetite has been good. He does get hungry. There has been some nausea, no vomiting. He denies dysphagia and denies odynophagia. There has occasionally been indigestion or heartburn. There has partially been regurgitation, if he lays down too soon after eating. Bowel habits have been regular. There has not been diarrhea. There has not been constipation. The patient denies rectal bleeding. There has not been melena. No abdominal pain. PSYCH: Positive for depression and depression that he feels has to do with his sleep HEMATOLOGY/LYMPHOLOGY Negative for prolonged bleeding, bruising easily or swollen nodes ENDOCRINE: Negative for thyroid or diabetes. NEURO: No history of headaches, syncope, paralysis, seizures or tremors All other reviewed and negative other than HPI. PAST MEDICAL HISTORY Diagnosis Date - Allergic rhinitis - Anxiety - Depression - GERD (gastroesophageal reflux disease) - Hypogonadism, testicular - Lumbago - Obesity - Panic attack - Sleep apnea, obstructive - Tobacco abuse quite 2006 ( aprox 20 pack yrs) PAST SURGICAL HISTORY Procedure Laterality Date - SEPTOPLASTY - TONSILLECTOMY HX FAMILY HISTORY Problem Relation Age of Onset - Diabetes Maternal Grandmother - Hypertension Father - parkenson's [OTHER] Father - Heart disease Brother valve disease Current Outpatient Prescriptions: PARoxetine (PAXIL) 40 mg tablet Take 1 tablet by mouth once daily. Disp: 30 tablet Rfl: 5 busPIRone HCl 7.5 mg tablet Take 1 tablet by mouth twice daily. Disp: 60 tablet Rfl: 1 ranitidine (ZANTAC) 150 mg tablet Take 1 tablet by mouth twice daily. Disp: 60 tablet Rfl: 5 albuterol HFA (PROAIR HFA) 90 mcg/actuation inhaler Inhale 2 Puffs as instructed every 4 hours as needed. Disp: 1 Inhaler Rfl: 0 COMPOUNDED PRESCRIPTION CPAP machine at 10 cm H2O with Humidification, nasal mask and suppliesDx: G47.33 Disp: 1 Device Rfl: 0 CPAP Initiate CPAP @ 10 cm of water with humidification. Mask (per patient preference) optional chin strap (if indicated) , filters, tubing, humidifier and lifetime supplies. Disp: 1 Device Rfl: 0 No current facility-administered medications for this visit. SOCIAL HISTORY: Patient is . He quit smoking 15 years ago. Has chewed tobacco for about 5 years. Spits and swallows. Calvin reports his alcohol use as rarely having a beer. PHYSICAL EXAMINATION: Blood pressure 111/76, pulse 103, height 182.9 cm (6'), weight (!) 146.1 kg (322 lb). General Appearance: Well appearing, alert, in no acute distress, well-hydrated, well nourished. Skin: Skin color, texture, turgor normal, no suspicious rashes or lesions. Head: Normocephalic, no masses, lesions or abnormalities. Eyes: Anicteric sclera. Oropharynx: Lips, mucosa, and tongue normal, teeth and gums normal, oropharynx normal. Neck: Supple, no adenopathy; thyroid symmetric, normal size. Lungs: Lungs clear to auscultation. No wheezing, rhonchi, rales. Heart: RRR without murmur. Abdomen: Abdomen soft, non-tender. Bowel sounds normal. No masses, organomegaly. Extremities: No deformities, edema, skin discoloration, clubbing or cyanosis. Peripheral Pulses: Normal. Neurologic: Gait normal. Sensation grossly intact. Impression: occasional dyspepsia 2)chewing tobacco use 3)colorectal cancer screening Plan: The patient will be scheduled for an upper endoscopy as well as a colonoscopy, with MAC. Preparation for the procedures, using GoLytely as the laxative, have been explained in detail. The risks, benefits, anticipated outcomes and possible complications were mentioned. I explained the procedure in understandable terms and the patient was given printed material concerning the planned procedure. The patient had the opportunity to ask questions concerning the planned procedure. The patient freely consents to the planned procedure. The patient is encouraged to call with any questions or concerns, or should there be any change in health status between now and the scheduled procedure. I have personally interviewed and examined this patient. I have read the information that the MA documented in this encounter. I spent 30 minutes in the visit, with more than 50% of the total [id number] time of the visit in counseling / coordination of care. Bernarda Post RN SLIP BRIDGE OPERATOR.HECTOR Post RN APRN.HECTOR 11/29/2017 10:52 AM Signed Please follow the provided instructions for upper endoscopy and colonoscopy. You will be using GoLytely as the laxative during the preparation. You may start the laxative as early as 1:00 in the afternoon. You will have the deeper sedation we call MAC. The stud setter will contact you to schedule your procedures. Referring Provider: VIVIANA LORENZO [[id number]] Allergies As of Date: 11/29/2017 Noted Allergy Reaction AMBIEN (ZOLPIDEM TARTRATE) 05/14/2013 10 - Anaphylaxis PENICILLINS 04/03/2013 16 - Unknown DICYCLOMINE 05/14/2013 14 - Other: See Comments Comments: sheila Date Reviewed: 11/29/2017 Reviewed by: Luli Duque Ma - Fully Assessed Reason for Visit: Colonoscopy Consult [Other] Primary Visit Diagnosis:Gastroesophageal reflux disease, esophagitis presence not specified [K21.9] Other Visit Diagnosis:Encounter for screening for malignant neoplasm of colon [Z12.11] Order(s):EGD GEN ANES [[id number]] Order #: [id number] FUTURE COLONOSCOPY GEN ANES [[id number]] Order #: [id number] FUTURE peg 3350-electrolytes (COLYTE) 240-22.72-6.72 -5.84 gram solutionTake 4,000 mL by mouth one time only for 1 dose.Disp: 1 BottleRfl: 0 Prescriptions as of 11/29/2017 Sig: PEG 3350 240 GRAM-ELECTROLYTE* Take 4,000 mL by mouth one ti* PAROXETINE 40 MG TABLET Take 1 tablet by mouth once d* BUSPIRONE 7.5 MG TABLET Take 1 tablet by mouth twice * RANITIDINE 150 MG TABLET Take 1 tablet by mouth twice * ALBUTEROL SULFATE HFA 90 MCG/* Inhale 2 Puffs as instructed * COMPOUNDED PRESCRIPTION CPAP machine at 10 cm H2O wit* CPAP Initiate CPAP @ 10 cm of wate* Problem List As Of Date 11/29/2017 Noted Resolved Anxiety [F41.9] Priority: A Depression [F32.9] Priority: A Panic attack [F41.0] Priority: A Ex-smoker [Z87.891] Priority: C More... Allergic rhinitis [J30.9] Priority: B Hypogonadism, testicular [E29.1] Priority: C Sleep apnea, obstructive [G47.33] 08/30/2013 Lumbago [M54.5] Priority: D JUANJO (obstructive sleep apnea) [G47.33] INVALID FOR* Priority: B More... Dyslipidemia [E78.5] INVALID FOR* Priority: A More... Gastroesophageal reflux disease without esophag*INVALID FOR* Priority: A Proteinuria [R80.9] INVALID FOR* Obesity, Class III, BMI 40-49.9 (morbid obesity*INVALID FOR* Priority: B Left lateral epicondylitis [M77.12] INVALID FOR* Elevated fasting blood sugar [R73.01] INVALID FOR* Priority: A Screening for prostate cancer [Z12.5] INVALID FOR* Well adult exam [Z00.00] INVALID FOR* Priority: E More... Screening for colon cancer [Z12.11] INVALID FOR* Other instructions from your clinician: Please follow the provided instructions for upper endoscopy and colonoscopy. You will be using GoLytely as the laxative during the preparation. You may start the laxative as early as 1:00 in the afternoon. You will have the deeper sedation we call MAC. The stud setter will contact you to schedule your procedures. Prescriptions ordered this encounter Disp Refills Start End PEG 3350 240 GRAM-ELECTROLYTES 22.72* 1 Chuy* 0 11/29/2017 11/29/2017 Route: ORAL Sig: Take 4,000 mL by mouth one time only for 1 dose. Encounter Status:Closed by BERNARDA POST CNP on 11/29/17 PROGRESS Observed: 11/15/2017 Status: COMPLETED Source: [place] 3:[address] [facility] REPOSITORY O ID: [id number] Author: Viviana Lorenzo Service: (none) Author Type: Physician Type: Progress Notes Filed: 11/15/2017 5:33 PM Note Text: Chief Complaint No chief complaint on file. DAVI Cabrera is a 52 year old male who presents here today for WAE and Routine. Patient with Hx as reviewed and documented below. With the heat has noted shortness of breath but when the temp is better he is not as short of breath. Past medical history, appointments, medications, allergies reviewed. Previous Medical History PAST MEDICAL HISTORY Diagnosis Date - Allergic rhinitis - Anxiety - Depression - GERD (gastroesophageal reflux disease) - Hypogonadism, testicular - Lumbago - Obesity - Panic attack - Sleep apnea, obstructive - Tobacco abuse quite 2006 ( aprox 20 pack yrs) Previous Surgical History PAST SURGICAL HISTORY Procedure Laterality Date - SEPTOPLASTY - TONSILLECTOMY HX Family History FAMILY HISTORY Problem Relation Age of Onset - Diabetes Maternal Grandmother - Hypertension Father Patient Allergies ALLERGIES Allergen Reactions - Ambien [Zolpidem Ta* Anaphylaxis - Penicillins Unknown - Dicyclomine Other: See Comments jitters Current Medications Current Outpatient Prescriptions on File Prior to Visit: busPIRone HCl 7.5 mg tablet Take 1 tablet by mouth twice daily. PARoxetine (PAXIL) 40 mg tablet Take 1 tablet by mouth once daily. albuterol HFA (PROAIR HFA) 90 mcg/actuation inhaler Inhale 2 Puffs as instructed every 4 hours as needed. COMPOUNDED PRESCRIPTION CPAP machine at 10 cm H2O with Humidification, nasal mask and suppliesDx: G47.33 CPAP Initiate CPAP @ 10 cm of water with humidification. Mask (per patient preference) optional chin strap (if indicated) , filters, tubing, humidifier and lifetime supplies. ranitidine (ZANTAC) 150 mg tablet Take 1 tablet by mouth twice daily. No current facility-administered medications on file prior to visit. Social History Social History Marital status: Spouse name: Years of education: Number of children: Social History Main Topics Smoking status: Former Smoker Packs/day: 0.00 Years: 0.00 Smokeless tobacco: Current User Types: Chew Alcohol use: No Review of Symptoms REVIEW OF SYSTEMS GENERAL: No weight loss, malaise or fevers HEENT: Negative for frequent or significant headaches, significant change in vision, significant vision problems, significant ear problems or hearing loss, nasal discharge, or nose bleeds, sore throat, difficulty swallowing, mouth lesions, hoarseness NECK: Negative for lumps, goiter, pain and significant neck swelling RESPIRATORY: Negative for cough, hemoptysis. See HPI CARDIOVASCULAR: Negative for chest pain, leg swelling, hypertension, CHF or palpitations GI: No nausea, vomiting, or diarrhea, No frequent heartburn or reflux symptoms and no blood : No history of dysuria or blood MUSCULOSKELETAL: has been having some left mid to lower back like a spasm over the past few weeks. No known specific injury SKIN: Negative for lesions, rash, and itching PSYCH: feeling blue with loss of job, Dad with Parkinson's and brother in July. Over all has been better since the addition of the Buspar. HEMATOLOGY/LYMPHOLOGY: Negative for prolonged bleeding, bruising easily or swollen nodes ENDOCRINE: Negative for cold or heat intolerance, polyuria, polydipsia and goiter NEURO: No history of headaches, syncope, paralysis, seizures or tremors EXAM: BP 118/78 (BP Site: Right Arm, BP Position: Sitting, BP Cuff Size: Large Adult) Pulse 84 Resp 16 Ht 182.9 cm (6') Wt (!) 144.7 kg (319 lb) BMI 43.26 kg/m? General Appearance: Well appearing, alert, in no acute distress, well-hydrated, well nourished.. Skin: Skin color, texture, turgor normal, no suspicious rashes or lesions. Head: Normocephalic, no masses, lesions, tenderness or abnormalities. Eyes: Anicteric sclera. Pupils are equally round and reactive to light. Extraocular movements are intact. . Ears: External ears normal, canals clear. Nose/Sinuses: Nares normal, septum midline, mucosa normal, no drainage or sinus tenderness. Oropharynx: Lips, mucosa, and tongue normal, teeth and gums normal, oropharynx normal. Neck: Supple, no adenopathy; thyroid symmetric, normal size, no bruits. Lungs: Lungs clear to auscultation. No wheezing, rhonchi, rales. Heart: RRR without murmur, gallop, or rubs. No ectopy. Abdomen: Normal abdominal exam, Abdomen soft, non-tender. Bowel sounds normal. No masses, organomegaly. Extremities: No deformities, edema, skin discoloration. Musculoskeletal: Spine range of motion normal. Muscular strength intact, No joint swelling, deformity, or tenderness. Peripheral Pulses: Normal. Neurologic: Gait normal. Reflexes normal and symmetric. Sensation to light touch and crainal nerves 2-12 intact.. Genitalia: Normal, Penis normal. No urethral discharge. Scrotum normal to palpation. No hernia.. Rectal: Normal exam. Back: unremarkable exam. Health Maintenance List ONE PNEUMOVAX PRIOR TO AGE 65 due on 09/17/1986 COLORECTAL CANCER SCREENING,SEE MODIFIER due on 09/17/2017 ZOSTER VACCINE (SHINGRIX)(1 of 2) due on 09/17/2017 INFLUENZA(1) due on 01/14/2018 DIABETES SCREEN due on 04/17/2019 LIPID SCREEN due on 04/17/2021 DTAP,TDAP,TD(2 - Td) due on 03/29/2026 Data reviewed A/P ASSESSMENT/PLAN: 1. Well adult exam - ICD9: V70.0, ICD10: Z00.00 (primary diagnosis) - Completed Digital Rectal exam - Recommended regular aerobic exercise. - Follow up for annual exam in one year. 2. Anxiety - ICD9: 300.00, ICD10: F41.9 Stable with Tx - PAROXETINE 40 MG TABLET and buspar 3. Panic attack - ICD9: 300.01, ICD10: F41.0 - As above - PAROXETINE 40 MG TABLET 4. Depression, unspecified depression type - ICD9: 311, ICD10: F32.9 - As above - PAROXETINE 40 MG TABLET 5. Gastroesophageal reflux disease without esophagitis - ICD9: 530.81, ICD10: K21.9 - Continue treatment with Zantac 150 mg BID as needed. - RANITIDINE 150 MG TABLET 6. SOB (shortness of breath) - ICD9: 786.05, ICD10: R06.02 Check - SPIROMETRY - BASELINE AND POST DILATOR 7. Ex-smoker - ICD9: V15.82, ICD10: Z87.891 Check - SPIROMETRY - BASELINE AND POST DILATOR 8. Screening for colon cancer - ICD9: V76.51, ICD10: Z12.11 - CONSULT TO GASTROENTEROLOGY Patient to complete lab work. f/u 6 months routine Viviana Lorenzo MD CNOV Observed: 11/15/2017 Status: COMPLETED Source: [place] 3:[address] [facility] REPOSITORY Office Visit (FAMPWS) CALVIN CABRERA ([id number]) 1965 M Date Time Provider Department 11/15/17 3:00 PM VIVIANA LORENZO FAMPWS During your visit today, we recorded the following information about you: Pulse Respiration Blood pressure Weight 84/minute 16/minute 118/78 144.7 kg Height 1.829 m Viviana Lorenzo MD 11/15/2017 5:33 PM Signed Chief Complaint No chief complaint on file. HPI Calvin Cabrera is a 52 year old male who presents here today for WAE and Routine. Patient with Hx as reviewed and documented below. With the heat has noted shortness of breath but when the temp is better he is not as short of breath. Past medical history, appointments, medications, allergies reviewed. Previous Medical History PAST MEDICAL HISTORY Diagnosis Date - Allergic rhinitis - Anxiety - Depression - GERD (gastroesophageal reflux disease) - Hypogonadism, testicular - Lumbago - Obesity - Panic attack - Sleep apnea, obstructive - Tobacco abuse quite 2006 ( aprox 20 pack yrs) Previous Surgical History PAST SURGICAL HISTORY Procedure Laterality Date - SEPTOPLASTY - TONSILLECTOMY HX Family History FAMILY HISTORY Problem Relation Age of Onset - Diabetes Maternal Grandmother - Hypertension Father Patient Allergies ALLERGIES Allergen Reactions - Ambien [Zolpidem Ta* Anaphylaxis - Penicillins Unknown - Dicyclomine Other: See Comments jitters Current Medications Current Outpatient Prescriptions on File Prior to Visit: busPIRone HCl 7.5 mg tablet Take 1 tablet by mouth twice daily. PARoxetine (PAXIL) 40 mg tablet Take 1 tablet by mouth once daily. albuterol HFA (PROAIR HFA) 90 mcg/actuation inhaler Inhale 2 Puffs as instructed every 4 hours as needed. COMPOUNDED PRESCRIPTION CPAP machine at 10 cm H2O with Humidification, nasal mask and suppliesDx: G47.33 CPAP Initiate CPAP @ 10 cm of water with humidification. Mask (per patient preference) optional chin strap (if indicated) , filters, tubing, humidifier and lifetime supplies. ranitidine (ZANTAC) 150 mg tablet Take 1 tablet by mouth twice daily. No current facility-administered medications on file prior to visit. Social History Social History Marital status: Spouse name: Years of education: Number of children: Social History Main Topics Smoking status: Former Smoker Packs/day: 0.00 Years: 0.00 Smokeless tobacco: Current User Types: Chew Alcohol use: No Review of Symptoms REVIEW OF SYSTEMS GENERAL: No weight loss, malaise or fevers HEENT: Negative for frequent or significant headaches, significant change in vision, significant vision problems, significant ear problems or hearing loss, nasal discharge, or nose bleeds, sore throat, difficulty swallowing, mouth lesions, hoarseness NECK: Negative for lumps, goiter, pain and significant neck swelling RESPIRATORY: Negative for cough, hemoptysis. See HPI CARDIOVASCULAR: Negative for chest pain, leg swelling, hypertension, CHF or palpitations GI: No nausea, vomiting, or diarrhea, No frequent heartburn or reflux symptoms and no blood : No history of dysuria or blood MUSCULOSKELETAL: has been having some left mid to lower back like a spasm over the past few weeks. No known specific injury SKIN: Negative for lesions, rash, and itching PSYCH: feeling blue with loss of job, Dad with Parkinson's and brother in July. Over all has been better since the addition of the Buspar. HEMATOLOGY/LYMPHOLOGY: Negative for prolonged bleeding, bruising easily or swollen nodes ENDOCRINE: Negative for cold or heat intolerance, polyuria, polydipsia and goiter NEURO: No history of headaches, syncope, paralysis, seizures or tremors EXAM: BP 118/78 (BP Site: Right Arm, BP Position: Sitting, BP Cuff Size: Large Adult) Pulse 84 Resp 16 Ht 182.9 cm (6') Wt (!) 144.7 kg (319 lb) BMI 43.26 kg/m? General Appearance: Well appearing, alert, in no acute distress, well-hydrated, well nourished.. Skin: Skin color, texture, turgor normal, no suspicious rashes or lesions. Head: Normocephalic, no masses, lesions, tenderness or abnormalities. Eyes: Anicteric sclera. Pupils are equally round and reactive to light. Extraocular movements are intact. . Ears: External ears normal, canals clear. Nose/Sinuses: Nares normal, septum midline, mucosa normal, no drainage or sinus tenderness. Oropharynx: Lips, mucosa, and tongue normal, teeth and gums normal, oropharynx normal. Neck: Supple, no adenopathy; thyroid symmetric, normal size, no bruits. Lungs: Lungs clear to auscultation. No wheezing, rhonchi, rales. Heart: RRR without murmur, gallop, or rubs. No ectopy. Abdomen: Normal abdominal exam, Abdomen soft, non-tender. Bowel sounds normal. No masses, organomegaly. Extremities: No deformities, edema, skin discoloration. Musculoskeletal: Spine range of motion normal. Muscular strength intact, No joint swelling, deformity, or tenderness. Peripheral Pulses: Normal. Neurologic: Gait normal. Reflexes normal and symmetric. Sensation to light touch and crainal nerves 2-12 intact.. Genitalia: Normal, Penis normal. No urethral discharge. Scrotum normal to palpation. No hernia.. Rectal: Normal exam. Back: unremarkable exam. Health Maintenance List ONE PNEUMOVAX PRIOR TO AGE 65 due on 09/17/1986 COLORECTAL CANCER SCREENING,SEE MODIFIER due on 09/17/2017 ZOSTER VACCINE (SHINGRIX)(1 of 2) due on 09/17/2017 INFLUENZA(1) due on 01/14/2018 DIABETES SCREEN due on 04/17/2019 LIPID SCREEN due on 04/17/2021 DTAP,TDAP,TD(2 - Td) due on 03/29/2026 Data reviewed A/P ASSESSMENT/PLAN: 1. Well adult exam - ICD9: V70.0, ICD10: Z00.00 (primary diagnosis) - Completed Digital Rectal exam - Recommended regular aerobic exercise. - Follow up for annual exam in one year. 2. Anxiety - ICD9: 300.00, ICD10: F41.9 Stable with Tx - PAROXETINE 40 MG TABLET and buspar 3. Panic attack - ICD9: 300.01, ICD10: F41.0 - As above - PAROXETINE 40 MG TABLET 4. Depression, unspecified depression type - ICD9: 311, ICD10: F32.9 - As above - PAROXETINE 40 MG TABLET 5. Gastroesophageal reflux disease without esophagitis - ICD9: 530.81, ICD10: K21.9 - Continue treatment with Zantac 150 mg BID as needed. - RANITIDINE 150 MG TABLET 6. SOB (shortness of breath) - ICD9: 786.05, ICD10: R06.02 Check - SPIROMETRY - BASELINE AND POST DILATOR 7. Ex-smoker - ICD9: V15.82, ICD10: Z87.891 Check - SPIROMETRY - BASELINE AND POST DILATOR 8. Screening for colon cancer - ICD9: V76.51, ICD10: Z12.11 - CONSULT TO GASTROENTEROLOGY Patient to complete lab work. f/u 6 months routine MD Viviana Morrison MD 11/15/2017 3:28 PM Signed Please complete fasting labs and urine test in the near future. Referring Provider: VIVIANA LORENZO [[id number]] Allergies As of Date: 11/15/2017 Noted Allergy Reaction AMBIEN (ZOLPIDEM TARTRATE) 05/14/2013 10 - Anaphylaxis PENICILLINS 04/03/2013 16 - Unknown DICYCLOMINE 05/14/2013 14 - Other: See Comments Comments: sheila Date Reviewed: 11/15/2017 Reviewed by: Viviana Lorenzo - Fully Assessed Primary Visit Diagnosis:Well adult exam [Z00.00] Comment:last done: 11/15/2017 Other Visit Diagnoses:Anxiety [F41.9] Panic attack [F41.0] Depression, unspecified depression type [F32.9] Gastroesophageal reflux disease without esophagitis [K21.9] SOB (shortness of breath) [R06.02] Ex-smoker [Z87.891] Screening for colon cancer [Z12.11] Order(s):PARoxetine (PAXIL) 40 mg tabletTake 1 tablet by mouth once daily.Disp: 30 tabletRfl: 5 busPIRone HCl 7.5 mg tabletTake 1 tablet by mouth twice daily.Disp: 60 tabletRfl: 1 ranitidine (ZANTAC) 150 mg tabletTake 1 tablet by mouth twice daily.Disp: 60 tabletRfl: 5 SPIROMETRY - BASELINE AND POST DILATOR [[id number]] Order #: [id number] FUTURE CONSULT TO GASTROENTEROLOGY [9010] Order #: [id number]: 1 Prescriptions as of 11/15/2017 Sig: PAROXETINE 40 MG TABLET Take 1 tablet by mouth once d* BUSPIRONE 7.5 MG TABLET Take 1 tablet by mouth twice * ALBUTEROL SULFATE HFA 90 MCG/* Inhale 2 Puffs as instructed * COMPOUNDED PRESCRIPTION CPAP machine at 10 cm H2O wit* CPAP Initiate CPAP @ 10 cm of wate* RANITIDINE 150 MG TABLET Take 1 tablet by mouth twice * Problem List As Of Date 11/15/2017 Noted Resolved Anxiety [F41.9] Priority: A Depression [F32.9] Priority: A Panic attack [F41.0] Priority: A Ex-smoker [Z87.891] Priority: C More... Allergic rhinitis [J30.9] Priority: B Hypogonadism, testicular [E29.1] Priority: C Sleep apnea, obstructive [G47.33] 08/30/2013 Lumbago [M54.5] Priority: D JUANJO (obstructive sleep apnea) [G47.33] INVALID FOR* Priority: B More... Dyslipidemia [E78.5] INVALID FOR* Priority: A More... Gastroesophageal reflux disease without esophag*INVALID FOR* Priority: A Proteinuria [R80.9] INVALID FOR* Obesity, Class III, BMI 40-49.9 (morbid obesity*INVALID FOR* Priority: B Left lateral epicondylitis [M77.12] INVALID FOR* Elevated fasting blood sugar [R73.01] INVALID FOR* Priority: A Screening for prostate cancer [Z12.5] INVALID FOR* Well adult exam [Z00.00] INVALID FOR* Priority: E More... Screening for colon cancer [Z12.11] INVALID FOR* Other instructions from your clinician: Please complete fasting labs and urine test in the near future. Prescriptions ordered this encounter Disp Refills Start End PAROXETINE 40 MG TABLET 30 t* 5 11/15/2017 Route: ORAL Sig: Take 1 tablet by mouth once daily. BUSPIRONE 7.5 MG TABLET 60 t* 1 11/15/2017 Route: ORAL Sig: Take 1 tablet by mouth twice daily. RANITIDINE 150 MG TABLET 60 t* 5 11/15/2017 Route: ORAL Sig: Take 1 tablet by mouth twice daily. Medications Discontinued During This Encounter PARoxetine (PAXIL) 40 mg tablet 30 t* 5 11/02/2016 11/15/2017 Route: ORAL Sig: Take 1 tablet by mouth once daily. Disc: Reason for discontinue is not on file. busPIRone HCl 7.5 mg tablet 60 t* 1 08/26/2017 11/15/2017 Route: ORAL Sig: Take 1 tablet by mouth twice daily. Disc: Reason for discontinue is not on file. ranitidine (ZANTAC) 150 mg tablet 60 t* 5 11/02/2016 11/15/2017 Class: Print RX Route: ORAL Sig: Take 1 tablet by mouth twice daily. Disc: Reason for discontinue is not on file. Disposition: Return in about 6 months (around 05/18/2018) for routine. Follow-up and Disposition History Recorded Encounter Status:Closed by VIVIANA LORENZO on 11/15/17 PROGRESS Observed: 08/26/2017 Status: COMPLETED Source: [place] 9:[address] [facility] REPOSITORY O ID: [id number] Author: Mateus Pan (Pa) Service: (none) Author Type: Physician Gravel Machine Operator Type: Progress Notes Filed: 08/26/2017 9:52 AM Note Text: Chief Complaint Patient presents with: Depression: patient indicated depression and panic attacks HPI Calvin Cabrera is a 51 year old male who presents here today for Worsening anxiety/depression. Patient states that he is having panic attacks daily and sometimes multiple times a day. Panic attacks mostly happen when he is alone especially driving alone. When his is home or with him he feels more secure and doesn't get as anxious. This has been going on for a few months. Is needing lorazepam a few times a week now. Feels like the paxil is helping some but things are getting worse. Thinks his depression is harder to manage right now as well. He currently is unemployed and thinks some of his worsening symptoms stems from that. Reports that he is anxious about finding a job but then can't drive to look for job without having a panic attack and then symptoms snowball from there. He states that he had a panic attack just driving to the office today and he only lives less than 10 min away. Past medical history, appointments, medications, allergies reviewed. Previous Medical History PAST MEDICAL HISTORY Diagnosis Date - Allergic rhinitis - Anxiety - Depression - GERD (gastroesophageal reflux disease) - Hypogonadism, testicular - Lumbago - Obesity - Panic attack - Sleep apnea, obstructive - Tobacco abuse quite 2006 ( aprox 20 pack yrs) Previous Surgical History PAST SURGICAL HISTORY Procedure Laterality Date - SEPTOPLASTY - TONSILLECTOMY HX Family History FAMILY HISTORY Problem Relation Age of Onset - Diabetes Maternal Grandmother - Hypertension Father Patient Allergies ALLERGIES Allergen Reactions - Ambien [Zolpidem Ta* Anaphylaxis - Dicyclomine Other: See Comments jitters - Penicillins Unknown Current Medications Current Outpatient Prescriptions on File Prior to Visit: LORazepam (ATIVAN) 1 mg tablet Take 1 tablet by mouth every 8 hours as needed. PARoxetine (PAXIL) 40 mg tablet Take 1 tablet by mouth once daily. ranitidine (ZANTAC) 150 mg tablet Take 1 tablet by mouth twice daily. albuterol HFA (PROAIR HFA) 90 mcg/actuation inhaler Inhale 2 Puffs as instructed every 4 hours as needed. COMPOUNDED PRESCRIPTION CPAP machine at 10 cm H2O with Humidification, nasal mask and suppliesDx: G47.33 CPAP Initiate CPAP @ 10 cm of water with humidification. Mask (per patient preference) optional chin strap (if indicated) , filters, tubing, humidifier and lifetime supplies. No current facility-administered medications on file prior to visit. Social History Social History Marital status: Spouse name: Years of education: Number of children: Social History Main Topics Smoking status: Former Smoker Packs/day: 0.00 Years: 0.00 Smokeless status: Current User Types: Chew Alcohol use: No Review of Symptoms REVIEW OF SYSTEMS GENERAL: No weight loss, malaise or fevers NECK: Negative for lumps, goiter, pain and significant neck swelling RESPIRATORY: shortness of breath with panic episodes. Negative for cough, hemoptysis, wheezing, COPD, dyspnea CARDIOVASCULAR: Palpitations with Panic attacks. Negative for chest pain, leg swelling, hypertension, CHF PSYCH: See HPI, worsening depression and anxiety EXAM: BP 112/80 (BP Site: Left Arm, BP Position: Sitting, BP Cuff Size: Large Adult) Pulse 76 Resp 14 Wt (!) 145.2 kg (320 lb) BMI 43.4 kg/m2 General Appearance: Well appearing, alert, in no acute distress, well-hydrated, well nourished.. PSYCH: Appearance: well dressed well groomed, cooperative and pleasant Behavior: good eye contact Speech: fluent and coherent Mood: Anxious mood but jokes throughout exam. humor appears to be a coping mechanism for him. Affect: appropriate Perceptions: none Thought process: goal directed Thought Content: normal Intelligence level: normal Insight: good Judgment: good . Health Maintenance List ONE PNEUMOVAX PRIOR TO AGE 65 due on 09/17/1986 INFLUENZA(Season Ended) due on 01/14/2018 DIABETES SCREEN due on 04/17/2019 LIPID SCREEN due on 04/17/2021 TETANUS due on 03/29/2026 ASSESSMENT/PLAN: 1. Anxiety - ICD9: 300.00, ICD10: F41.9 (primary diagnosis) Continue Paxil and add Buspar Refill of lorazepam to use as needed - LORAZEPAM 1 MG TABLET 2. Panic attack - ICD9: 300.01, ICD10: F41.0 See above - LORAZEPAM 1 MG TABLET 3. Depression, unspecified depression type - ICD9: 311, ICD10: F32.9 See above. [employer] website checked and validated. All prescriptions have been APPROPRIATELY filled. No suspicious activity was identified.- 08/26/2017 by JANNIE FISHMAN Time with patient face to face was 25 min JANNIE FISHMAN CNOV Observed: 08/26/2017 Status: COMPLETED Source: [place] 9:[address] [facility] REPOSITORY Office Visit (FAMPWS) CALVIN CABRERA ([id number]) 1965 M Date Time Provider Department 08/26/17 9:00 AM MATEUS PAN) FAMPWS During your visit today, we recorded the following information about you: Pulse Respiration Blood pressure Weight 76/minute 14/minute 112/80 145.2 kg JANNIE FISHMAN 08/26/2017 9:52 AM Signed Chief Complaint Patient presents with: Depression: patient indicated depression and panic attacks HPI Calvin Cabrera is a 51 year old male who presents here today for Worsening anxiety/depression. Patient states that he is having panic attacks daily and sometimes multiple times a day. Panic attacks mostly happen when he is alone especially driving alone. When his is home or with him he feels more secure and doesn't get as anxious. This has been going on for a few months. Is needing lorazepam a few times a week now. Feels like the paxil is helping some but things are getting worse. Thinks his depression is harder to manage right now as well. He currently is unemployed and thinks some of his worsening symptoms stems from that. Reports that he is anxious about finding a job but then can't drive to look for job without having a panic attack and then symptoms snowball from there. He states that he had a panic attack just driving to the office today and he only lives less than 10 min away. Past medical history, appointments, medications, allergies reviewed. Previous Medical History PAST MEDICAL HISTORY Diagnosis Date - Allergic rhinitis - Anxiety - Depression - GERD (gastroesophageal reflux disease) - Hypogonadism, testicular - Lumbago - Obesity - Panic attack - Sleep apnea, obstructive - Tobacco abuse quite 2006 ( aprox 20 pack yrs) Previous Surgical History PAST SURGICAL HISTORY Procedure Laterality Date - SEPTOPLASTY - TONSILLECTOMY HX Family History FAMILY HISTORY Problem Relation Age of Onset - Diabetes Maternal Grandmother - Hypertension Father Patient Allergies ALLERGIES Allergen Reactions - Ambien [Zolpidem Ta* Anaphylaxis - Dicyclomine Other: See Comments jitters - Penicillins Unknown Current Medications Current Outpatient Prescriptions on File Prior to Visit: LORazepam (ATIVAN) 1 mg tablet Take 1 tablet by mouth every 8 hours as needed. PARoxetine (PAXIL) 40 mg tablet Take 1 tablet by mouth once daily. ranitidine (ZANTAC) 150 mg tablet Take 1 tablet by mouth twice daily. albuterol HFA (PROAIR HFA) 90 mcg/actuation inhaler Inhale 2 Puffs as instructed every 4 hours as needed. COMPOUNDED PRESCRIPTION CPAP machine at 10 cm H2O with Humidification, nasal mask and suppliesDx: G47.33 CPAP Initiate CPAP @ 10 cm of water with humidification. Mask (per patient preference) optional chin strap (if indicated) , filters, tubing, humidifier and lifetime supplies. No current facility-administered medications on file prior to visit. Social History Social History Marital status: Spouse name: Years of education: Number of children: Social History Main Topics Smoking status: Former Smoker Packs/day: 0.00 Years: 0.00 Smokeless status: Current User Types: Chew Alcohol use: No Review of Symptoms REVIEW OF SYSTEMS GENERAL: No weight loss, malaise or fevers NECK: Negative for lumps, goiter, pain and significant neck swelling RESPIRATORY: shortness of breath with panic episodes. Negative for cough, hemoptysis, wheezing, COPD, dyspnea CARDIOVASCULAR: Palpitations with Panic attacks. Negative for chest pain, leg swelling, hypertension, CHF PSYCH: See HPI, worsening depression and anxiety EXAM: BP 112/80 (BP Site: Left Arm, BP Position: Sitting, BP Cuff Size: Large Adult) Pulse 76 Resp 14 Wt (!) 145.2 kg (320 lb) BMI 43.4 kg/m2 General Appearance: Well appearing, alert, in no acute distress, well-hydrated, well nourished.. PSYCH: Appearance: well dressed well groomed, cooperative and pleasant Behavior: good eye contact Speech: fluent and coherent Mood: Anxious mood but jokes throughout exam. humor appears to be a coping mechanism for him. Affect: appropriate Perceptions: none Thought process: goal directed Thought Content: normal Intelligence level: normal Insight: good Judgment: good . Health Maintenance List ONE PNEUMOVAX PRIOR TO AGE 67 due on 09/17/1986 INFLUENZA(Season Ended) due on 01/14/2018 DIABETES SCREEN due on 04/17/2019 LIPID SCREEN due on 04/17/2021 TETANUS due on 03/29/2026 ASSESSMENT/PLAN: 1. Anxiety - ICD9: 300.00, ICD10: F41.9 (primary diagnosis) Continue Paxil and add Buspar Refill of lorazepam to use as needed - LORAZEPAM 1 MG TABLET 2. Panic attack - ICD9: 300.01, ICD10: F41.0 See above - LORAZEPAM 1 MG TABLET 3. Depression, unspecified depression type - ICD9: 311, ICD10: F32.9 See above. OARRS website checked and validated. All prescriptions have been APPROPRIATELY filled. No suspicious activity was identified.- 08/26/2017 by JANNIE FISHMAN Time with patient face to face was 25 min JANNIE FISHMAN Referring Provider: VIVIANA LORENZO [[id number]] Allergies As of Date: 08/26/2017 Noted Allergy Reaction AMBIEN (ZOLPIDEM TARTRATE) 05/14/2013 10 - Anaphylaxis DICYCLOMINE 05/14/2013 14 - Other: See Comments Comments: jitters PENICILLINS 04/03/2013 16 - Unknown Date Reviewed: 08/26/2017 Reviewed by: Mateus Gunter) Maxim - Fully Assessed Reason for Visit: Depression [32] Cmt: patient indicated depression and panic attacks Primary Visit Diagnosis:Anxiety [F41.9] Other Visit Diagnoses:Panic attack [F41.0] Depression, unspecified depression type [F32.9] Order(s):busPIRone HCl 7.5 mg tabletTake 1 tablet by mouth twice daily.Disp: 60 tabletRfl: 1 LORazepam (ATIVAN) 1 mg tabletTake 1 tablet by mouth every 8 hours as needed for up to 7 days.Disp: 20 tabletRfl: 0 Prescriptions as of 08/26/2017 Sig: LORAZEPAM 1 MG TABLET Take 1 tablet by mouth every * PAROXETINE 40 MG TABLET Take 1 tablet by mouth once d* RANITIDINE 150 MG TABLET Take 1 tablet by mouth twice * ALBUTEROL SULFATE HFA 90 MCG/* Inhale 2 Puffs as instructed * COMPOUNDED PRESCRIPTION CPAP machine at 10 cm H2O wit* CPAP Initiate CPAP @ 10 cm of wate* BUSPIRONE 7.5 MG TABLET Take 1 tablet by mouth twice * Problem List As Of Date 08/26/2017 Noted Resolved Anxiety [F41.9] Priority: A Depression [F32.9] Priority: A Panic attack [F41.0] Priority: A Ex-smoker [Z87.891] Priority: C More... Allergic rhinitis [J30.9] Priority: B Hypogonadism, testicular [E29.1] Priority: C Sleep apnea, obstructive [G47.33] 08/30/2013 Lumbago [M54.5] Priority: D JUANJO (obstructive sleep apnea) [G47.33] INVALID FOR* Priority: B More... Dyslipidemia [E78.5] INVALID FOR* Priority: A More... Gastroesophageal reflux disease without esophag*INVALID FOR* Priority: A Proteinuria [R80.9] INVALID FOR* Obesity, Class III, BMI 40-49.9 (morbid obesity*INVALID FOR* Priority: B Left lateral epicondylitis [M77.12] INVALID FOR* Elevated fasting blood sugar [R73.01] INVALID FOR* Priority: A Screening for prostate cancer [Z12.5] INVALID FOR* Prescriptions ordered this encounter Disp Refills Start End BUSPIRONE 7.5 MG TABLET 60 t* 1 08/26/2017 Route: ORAL Sig: Take 1 tablet by mouth twice daily. LORAZEPAM 1 MG TABLET 20 t* 0 08/26/2017 09/02/2017 Class: Print RX Route: ORAL Sig: Take 1 tablet by mouth every 8 hours as needed for up to 7 days. Medications Discontinued During This Encounter LORazepam (ATIVAN) 1 mg tablet 10 t* 0 11/02/2016 08/26/2017 Class: Print RX Route: ORAL Sig: Take 1 tablet by mouth every 8 hours as needed. Disc: Reason for discontinue is not on file. Disposition: Return in about 4 weeks (around 09/23/2017). Follow-up and Disposition History Recorded Encounter Status:Closed by MATEUS PAN on 08/26/17 ALLERGIES ALLERGIES DATE TYPE / NAME / CODE REACTION SEVERITY SOURCE CODE 04/26/2018 Drug Penicillins/F0010 Other Unknown [place] Allergy/41 33698(RXNORM) [facility] [id number]( Hospital OMED CT) Repository 05/14/2013 DRUG DICYCLOMINE OTHER: SEE C [place] [address] [address] [place] [id number](SN Repository OMED CT) 05/14/2013 DRUG ZOLPIDEM TARTRATE ANAPHYLAXIS [place] [address] [place] [id number](SN Repository OMED CT) 05/14/2013 DRUG DICYCLOMINE OTHER: SEE [place] [address] [address] [place] [id number](SN Repository OMED CT) 04/03/2013 Drug PENICILLINS UNKNOWN [facility] Class/[address] [address](SNOM Repository ED CT) ENCOUNTERS ENCOUNTERS ADMIT/DISCHARGE ACCOUNT ADMITTING ENCOUNTER LOCATION SOURCE NUMBER CLASS 05/24/2018/05/25/19 [id number] Ambulatory [address] Repository 05/24/2018/05/24/19 [id number] Ambulatory [address] Repository 04/26/2018/04/26/20 [id number] Emergency Christopher White [address] [place] [address] ing:ED Repository 04/26/2018 [id number] Ambulatory BMSBuilding:W [facility] Repository 04/22/2018/04/24/20 [id number] Ambulatory [address] Repository 04/19/2018/04/20/20 [id number] Ambulatory [address] Repository 01/29/2018/02/01/20 [id number] Ambulatory [address] Repository 12/27/2017/12/31/19 [id number] Ambulatory [address] Repository 11/29/2017/12/01/19 [id number] Ambulatory [address] Repository 11/29/2017/12/01/19 [id number] Ambulatory [address] Repository 11/15/2017/11/18/19 [id number] Ambulatory [address] Repository 08/26/2017/08/31/19 [id number] Ambulatory [address] Repository PAYERS PAYERS ENCOUNTER GUARANTOR PAYER SUBSCRIBER SOURCE 04/26/2018 [id number] Insurance:ANTHEMPolic MILLERDOB: [facility], y Number: [id number]: [id number] Repository Date:[id number] () [id number], [place] [address]KO: 04/26/2018 Secondary NOT GIVENUNK [place] Insurance:SELF PAY [facility] Number: Effective Repository Date:2018-04-26 04/26/2018 CALVIN [facility] MIGUEL Christopher [id number] Insurance:ANTHEMPolic MILLERDOB: [facility], y Number: [id number]: [id number] Repository Date:[id number] () [id number], [place] [address]BU: 04/26/2018 Secondary NOT GIVENUNK Christopher Insurance:SELF PAY [facility] Number: Effective Repository Date:2018-04-26
== END 2018-04-26 11:10 | disposition home or self-care (01) ==
LOC: ED 09:59
PROVIDERS: Emergency Provider Emergency Medicine; Family Provider Family Medicine; PCP Family Medicine
DX: H81.10 Benign paroxysmal vertigo, unspecified ear (principal)
CPT/HCPCS: 70450; 80048; 84484; 85025; 93005; 96360; 96361; 99284; J7030; A4216

== ENCOUNTER 2018-06-22 17:42 | Outpatient (RCR) | payer BC, SELFPAY ==
--- NOTE | 2018-06-22 18:53 | HP.PTEVAL_ITS ---
Patient's Visit Information EDGAR CABRERA is a 52 year old M referred to Physical Therapy by Lan Lopez MD with a diagnosis of BPPV. Date of Evaluation: 06/22/18 Physical Therapist: Kory Wick, FANIT, OCS, CSCS - Visit Plan Frequency: 1-2x /Week Duration: 2-4 Weeks Plan: 1-2x/week for 2-4 weeks for progression of home adaptation ex and balance as needed. Given VOR horiz seated x2 ex today 60 seconds 5x/day for HEP - Subjective Findings: Went to hospital with dizzyness one month ago. Did EKG and it was OK and diagnosed with vertigo. Saw Jessica and sent for PT. Feels like he has had dizzyness all his life. Was painting a month ago inhaling fumes and made sudden turn with head. started spinning and had to sit for 45 minutes and slowly went away. Currently has slight dizzyness intermittently with certain movements working. Works maintenance and doing OK but hasn't had any bad incidents. Home life is normal but has to take things slow. Sleep is OK with cpap - Objective FGA normal. Romberg slight deficits with foam ec. Neck ROM WFL and painfree. 4/5 UE strength without myotomal abnormalities, sensation WNl to gross light touch in UE. - B hallpike and positional and roll test. Oculomotor;. no nystagmus with gaze or head shake. normal convergence. - skew eye de viation. s;ight + R head thrust. pursuit and saccades are normal. VOR x1 horiz 30 seconds give 1/10 for 30 seconds. VORx2 30 seconds gives 2/10 for 30 seconds. - Balance Scores Functional Gait Assessment Score: 30 % Disability: 0 CATSIB Score (Max score 120 seconds): 102 - Goals Goal 1:: Pt feel back to 100% baseline symptoms Goal Time Frame: 2-4 Weeks Goal 2:: Pt I approp ex to minimize future problems Goal Time Frame: 2-4 Weeks Goal 3:: foam stance 30 seconds with ec without LOB Goal Time Frame: 2-4 Weeks Goal 4:: Normal efficiency of housework without any symptoms. Goal Time Frame: 2-4 Weeks - Rehabilitation Potential Physical Therapy Diagnosis: Possible unilateral vestibualr hypofunction Rehabilitation Potential: Fair - Anticipated Interventions Patient/Client Instruction: Educate patient on: Condition, Plan of Care For the Purpose of:: To increase tolerance to activity/condition/position, To improve ability of physical actions for home/community/work/leisure Therapeutic Exercise to Include: Balance training Comment: adaptation For the Purpose of:: To increase tolerance to activity/condition/position Thank you for the opportunity to evaluate your patient. For Medicare and Medicare HMO plans, please review the plan of care and approve it. It will need to be FAXED BACK to us at [phone] for Medicare purposes. For Medicare only, by signing this I certify the plan of care. Please let me know if there are questions or concerns regarding this plan of care. Physician Signature: Date:
--- NOTE | 2018-08-16 15:10 | HP.PT.NRP ---
HP - Discharge Summary (1) - Patient Information EDGAR CABRERA was seen in my office for initial evaluation on 06/22/18. The following Plan of Care was established for this patient: Initial Frequency: 1-2x /Week Initial Duration: 2-4 Weeks - Anticipated Interventions Patient/Client Instruction: Educate patient on: Condition, Plan of Care For the Purpose of:: To increase tolerance to activity/condition/position, To improve ability of physical actions for home/community/work/leisure Therapeutic Exercise to Include: Balance training For the Purpose of:: To increase tolerance to activity/condition/position This patient was last seen in our office 06/22/18. Pertinent comments regarding their Physical therapy will appear below: Pt seen one visit and HEP given adn POC established. Did not show for subsequent visits. At this point it has been nearly two months adn I will discotninue due to nonattendance. At this point I will be discontinuing this patient from physical therapy. I would be happy to see this patient again in the future if found appropriate by the physician. Thank you! Kory Wick, DPT, OCS, CSCS
== END 2018-06-22 19:00 | disposition home or self-care (01) ==
LOC: PT 17:42
PROVIDERS: Family Provider Family Medicine; PCP Family Medicine; Visit Provider Family Medicine
DX: H81.10 Benign paroxysmal vertigo, unspecified ear (principal)
CPT/HCPCS: 97110; 97162

== ENCOUNTER 2018-08-19 20:51 | Emergency (ER) | payer BC, SELFPAY ==
[2018-08-19 20:52] VITALS: BP 154/97; PULSE 101; RESP 18; TEMP 36.1; BMI 43.4
--- NOTE | 2018-08-19 21:23 | RAD_ITS ---
STUDY: X-RAY CHEST REASON FOR EXAM: Male, 52 years old. Dizziness TECHNIQUE: Single frontal view of the chest. COMPARISON: None. FINDINGS: The lungs are clear and expanded. There is no demonstrated pleural abnormality. Cardiomegaly. Normal mediastinum and claudia. Normal visualized pulmonary arteries. Normal visualized aortic arch and descending thoracic aorta. There are diffuse degenerative changes of the visualized thoracic spine. Normal visualized ribs, clavicles, and shoulders. There is no demonstrated abnormality of the visualized soft tissue structures of the upper abdomen. RAD/Chest 1 View IMPRESSION: Degenerative changes, as described above. No demonstrated acute cardiopulmonary process. Electronically Signed: Daniele Goode, at 22:17 EDT Tel , Service support ,
--- NOTE | 2018-08-19 21:23 | CT_ITS ---
STUDY: CT BRAIN WITHOUT CONTRAST REASON FOR EXAM: Male, 52 years old. Dizziness RADIATION DOSAGE (If Supplied By Facility): CTDIvol = ( 44.99 ) mGy, DLP = ( 880.47 ) mGycm TECHNIQUE: Transaxial CT imaging of the brain was performed without administration of intravenous contrast material. Individualized dose optimization techniques were used for this CT. COMPARISON: April 26, 2018 FINDINGS: Normal soft tissue structures. Normal calvarium. Normal size ventricles and extra-axial spaces for the patient's age. There are areas of decreased attenuation within the white matter tracts of the supratentorial brain, consistent with microvascular disease changes. Normal basal ganglia and thalami. Normal brainstem. Normal cerebellum. There is no intracranial hemorrhage. There are no findings of an acute ischemic infarction. Paranasal sinus disease. No air-fluid levels identified. CT/Brain/Head without Contrast IMPRESSION: No acute territorial infarct or intracranial hemorrhage identified. If patient's symptomology persists or there is continuing clinical concern MRI or follow-up CT scan can be performed. Electronically Signed: Daniele Goode, at 22:19 EDT Tel , Service support ,
--- NOTE | 2018-08-19 21:23 | EKG12_ITS ---
Test Reason : DIZZINESS Blood Pressure : / mmHG Vent. Rate : 079 BPM Atrial Rate : 079 BPM P-R Int : 166 ms QRS Dur : 078 ms QT Int : 372 ms P-R-T Axes : 063 -04 -01 degrees QTc Int : 426 ms Normal sinus rhythm Normal ECG Confirmed by TERRI HICKEY, ROQUE ([id number]), deputy editor in chief FLORESITA LEAVITT ([id number]) on 08/22/2018 7:54:31 AM Referred By: DC Confirmed By:ROQUE MURRAY MD
[2018-08-19] MEDS: LORazepam 2 MG/ML Syringe 1 MG IV (21:37)
[2018-08-19 22:10] LABS: Absolute Lymphocyte Count 2.11 X10^3/ul (0.83-4.51); Absolute Neutrophil Count 2.8 X10^3/uL (2.0-7.7); Anion Gap 3 (5-15); BUN 17 mg/dL (7-18); Basophil# 0.02 X10^3/uL; Basophil% 0.4 % (0-1); Calcium,Total 8.8 mg/dL (8.5-10.1); Chloride 110 mmol/L (98-107); Creatinine, Serum 1.13 mg/dL (0.70-1.30); EST Glomerular Filtration Rate 73 mL/min (>60); Eosinophil# 0.13 X10^3/uL; Eosinophils% 2.4 % (0-5); Est Glom Filt Rate - Afr Amer 88 mL/min (>60); Estimated Creatinine Clearance 85.84 ml/min; Glucose 86 mg/dL (74-106); Hematocrit 42.1 % (40-54); Hemoglobin 14.6 g/dl (13.0-16.5); Lymphocyte # 2.11 X10^3/ul (4.0); Lymphocyte % 38.3 % (19-41); Mean Corp Hgb Conc 34.7 g/gl (32-36); Mean Corpuscular Volume 89.4 fL (80-94); Monocyte# 0.44 X10^3/uL; Neutrophil % 50.7 % (47-70); Platelet Count 255 K/mm3 (150-450); Potassium 4.3 mmol/L (3.5-5.1); RBC Distribution Width CV 13.9 % (11.6-14.6); Red Blood Count 4.71 M/mm3 (4.6-6.2); Sodium Level 142 mmol/L (136-145); White Blood Count 5.5 K/mm3 (4.4-11.0)
[2018-08-19 22:16] LABS: POSITIVE COUNT NO; POSITIVE DIFFERENTIAL NO; POSITIVE MORPHOLOGY NO
[2018-08-19 22:18] LABS: Prothrombin Time (Protime)PT. 13.1 SECONDS (11.7-14.9)
[2018-08-19 22:19] LABS: Partial Thromboplast Time 25.5 Seconds (24.1-36.2)
--- NOTE | 2018-08-19 22:40 | CT_ITS ---
HISTORY: DIZZINESS,ELEVATED BP,NAUSEA TECHNIQUE: Routine carotid CT angiogram protocol was performed without and with IV contrast. In addition, images were obtained of the [place]. Nascet criteria using the distal ICAs for comparison were used for evaluation of stenoses. 3D reconstructions were reviewed. A radiation dose optimization technique was used for this scan. IV Contrast dosage and agent: 100ML Isovue 370 COMPARISON: CT brain same date. FINDINGS: --Neck: AORTIC ARCH AND BRANCHES: Normal anatomy, patent. RIGHT CCA: No occlusion, significant stenosis or dissection. RIGHT ICA: No occlusion, significant stenosis or dissection. LEFT CCA: No occlusion, significant stenosis or dissection. LEFT ICA: No occlusion, significant stenosis or dissection. RIGHT VERTEBRAL ARTERY: No occlusion, significant stenosis or dissection. Right dominant. LEFT VERTEBRAL ARTERY: No occlusion, significant stenosis or dissection. NON-VASCULAR STRUCTURES: Chronic healed right clavicle fracture partially visible. Prominent disc degeneration C6-7. Mild mucosal thickening floors of both maxillary sinuses, no air-fluid levels. --Head: ICAs: No significant stenosis at the intracranial/visualized segments. ACAs: No significant stenosis at the visualized segments. ACOM is present. MCAs: No significant stenosis at the visualized segments. night supervisor: No significant stenosis at the visualized segments. BASILAR ARTERY: No significant stenosis. VERTEBRAL ARTERIES: No significant stenosis at the intradural/visualized segments. No evidence of intracranial aneurysm or vascular malformation. IMPRESSION: Negative CT Carotid and Cerebral angiogram. Individualized dose optimization techniques were used for this CT. at 2339 Reported and signed by: Antonino Perez MD Electronically Signed: Antonino Perez, at 23:38 EDT Tel , Service support , HISTORY: DIZZINESS,ELEVATED BP,NAUSEA TECHNIQUE: Routine carotid CT angiogram protocol was performed without and with IV contrast. In addition, images were obtained of the [place]. Nascet criteria using the distal ICAs for comparison were used for evaluation of stenoses. 3D reconstructions were reviewed. A radiation dose optimization technique was used for this scan. IV Contrast dosage and agent: 100ML Isovue 370 COMPARISON: CT brain same date. FINDINGS: --Neck: AORTIC ARCH AND BRANCHES: Normal anatomy, patent. RIGHT CCA: No occlusion, significant stenosis or dissection. RIGHT ICA: No occlusion, significant stenosis or dissection. LEFT CCA: No occlusion, significant stenosis or dissection. LEFT ICA: No occlusion, significant stenosis or dissection. RIGHT VERTEBRAL ARTERY: No occlusion, significant stenosis or dissection. Right dominant. LEFT VERTEBRAL ARTERY: No occlusion, significant stenosis or dissection. NON-VASCULAR STRUCTURES: Chronic healed right clavicle fracture partially visible. Prominent disc degeneration C6-7. Mild mucosal thickening floors of both maxillary sinuses, no air-fluid levels. --Head: ICAs: No significant stenosis at the intracranial/visualized segments. ACAs: No significant stenosis at the visualized segments. ACOM is present. MCAs: No significant stenosis at the visualized segments. night supervisor: No significant stenosis at the visualized segments. BASILAR ARTERY: No significant stenosis. VERTEBRAL ARTERIES: No significant stenosis at the intradural/visualized segments. No evidence of intracranial aneurysm or vascular malformation. CT/CTA Neck W/WO Contrast IMPRESSION: Negative CT Carotid and Cerebral angiogram. Individualized dose optimization techniques were used for this CT. at 2340 Reported and signed by: Antonino Perez MD Electronically Signed: Antonino Perez, at 23:38 EDT Tel , Service support ,
--- NOTE | 2018-08-19 22:40 | CT_ITS ---
HISTORY: DIZZINESS,ELEVATED BP,NAUSEA TECHNIQUE: Routine carotid CT angiogram protocol was performed without and with IV contrast. In addition, images were obtained of the [place]. Nascet criteria using the distal ICAs for comparison were used for evaluation of stenoses. 3D reconstructions were reviewed. A radiation dose optimization technique was used for this scan. IV Contrast dosage and agent: 100ML Isovue 370 COMPARISON: CT brain same date. FINDINGS: --Neck: AORTIC ARCH AND BRANCHES: Normal anatomy, patent. RIGHT CCA: No occlusion, significant stenosis or dissection. RIGHT ICA: No occlusion, significant stenosis or dissection. LEFT CCA: No occlusion, significant stenosis or dissection. LEFT ICA: No occlusion, significant stenosis or dissection. RIGHT VERTEBRAL ARTERY: No occlusion, significant stenosis or dissection. Right dominant. LEFT VERTEBRAL ARTERY: No occlusion, significant stenosis or dissection. NON-VASCULAR STRUCTURES: Chronic healed right clavicle fracture partially visible. Prominent disc degeneration C6-7. Mild mucosal thickening floors of both maxillary sinuses, no air-fluid levels. --Head: ICAs: No significant stenosis at the intracranial/visualized segments. ACAs: No significant stenosis at the visualized segments. ACOM is present. MCAs: No significant stenosis at the visualized segments. fisheries inspector: No significant stenosis at the visualized segments. BASILAR ARTERY: No significant stenosis. VERTEBRAL ARTERIES: No significant stenosis at the intradural/visualized segments. No evidence of intracranial aneurysm or vascular malformation. IMPRESSION: Negative CT Carotid and Cerebral angiogram. Individualized dose optimization techniques were used for this CT. at 2339 Reported and signed by: Antonino Perez MD Electronically Signed: Antonino Perez, at 23:38 EDT Tel , Service support , HISTORY: DIZZINESS,ELEVATED BP,NAUSEA TECHNIQUE: Routine carotid CT angiogram protocol was performed without and with IV contrast. In addition, images were obtained of the [place]. Nascet criteria using the distal ICAs for comparison were used for evaluation of stenoses. 3D reconstructions were reviewed. A radiation dose optimization technique was used for this scan. IV Contrast dosage and agent: 100ML Isovue 370 COMPARISON: CT brain same date. FINDINGS: --Neck: AORTIC ARCH AND BRANCHES: Normal anatomy, patent. RIGHT CCA: No occlusion, significant stenosis or dissection. RIGHT ICA: No occlusion, significant stenosis or dissection. LEFT CCA: No occlusion, significant stenosis or dissection. LEFT ICA: No occlusion, significant stenosis or dissection. RIGHT VERTEBRAL ARTERY: No occlusion, significant stenosis or dissection. Right dominant. LEFT VERTEBRAL ARTERY: No occlusion, significant stenosis or dissection. NON-VASCULAR STRUCTURES: Chronic healed right clavicle fracture partially visible. Prominent disc degeneration C6-7. Mild mucosal thickening floors of both maxillary sinuses, no air-fluid levels. --Head: ICAs: No significant stenosis at the intracranial/visualized segments. ACAs: No significant stenosis at the visualized segments. ACOM is present. MCAs: No significant stenosis at the visualized segments. fisheries inspector: No significant stenosis at the visualized segments. BASILAR ARTERY: No significant stenosis. VERTEBRAL ARTERIES: No significant stenosis at the intradural/visualized segments. No evidence of intracranial aneurysm or vascular malformation. CT/CTA Head W/WO Contrast IMPRESSION: Negative CT Carotid and Cerebral angiogram. Individualized dose optimization techniques were used for this CT. at 2340 Reported and signed by: Antonino Perez MD Electronically Signed: Antonino Perez, at 23:38 EDT Tel , Service support ,
[2018-08-19] MEDS: Meclizine HCl 25 MG Tablet PO (22:46)
--- NOTE | 2018-08-20 | PCM.HP.STD ---
History of Present Illness The patient is a 52 year old M [] Past Medical History Allergies Penicillins Allergy (Verified 04/26/18 08:52) Other Home Medications: Ambulatory Orders Medication Instructions Recorded Paroxetine HCl [Paxil] 40 mg PO DAILY 05/29/13 Ranitidine [Zantac] 150 mg PO BID 04/26/18 Clindamycin HCl 150 mg PO TID 08/19/18 Smoking Status: Former smoker - Physical Exam Vital Signs Temp Pulse Resp BP 97 F L 101 H 18 154/97 H 08/19/18 20:52 08/19/18 20:52 08/19/18 20:52 08/19/18 20:52 Oxygen Delivery Method Room Air Weight: 145.45 kg Body Mass Index (BMI) 43.4 Laboratory Tests Past 24 Hrs 08/19/18 08/19/18 08/19/18 21:37 21:37 21:37 WBC 5.5 RBC 4.71 Hgb 14.6 Hct 42.1 MCV 89.4 MCH 31.0 MCHC 34.7 RDW 13.9 RDW Differential 45.0 H Plt Count 255 MPV 9.0 Immature Gran % (Auto) 0.200 Neut % (Auto) 50.7 Lymph % (Auto) 38.3 [place] % (Auto) 8.0 Eos % (Auto) 2.4 Baso % (Auto) 0.4 Absolute Neuts (auto) 2.8 Absolute Lymphs (auto) 2.11 Total Counted Not Reportable PT 13.1 INR 1.0 APTT 25.5 Sodium 142 Potassium 4.3 Chloride 110 H Carbon Dioxide 29.0 Anion Gap 3 L BUN 17 Creatinine 1.13 Estim Creat Clear Calc 85.84 Est GFR (MDRD) Af Amer 88 Est GFR (MDRD) Non-Af 73 BUN/Creatinine Ratio 15.0 Glucose 86 Calcium 8.8 Troponin I < 0.015
--- NOTE | 2018-08-20 00:01 | ED.DCSUM_ITS ---
- ER Visit Summary Date of Service: 08/19/18 Chief Complaint: Dizziness History of Present Illness: The patient is a 52 M with a sudden onset of dizziness while at dinner this evening. He also had nausea and he says he felt clammy. He felt like he was going to fall. His symptoms are worse with movement. Denies fever or recent illness. He did have a tooth pulled recently and is currently on antibiotics. Denies any vision changes or speech changes. Denies facial droop or weakness. Denies rash, tinnitus, or ear infections. He did have similar symptoms in the past which were attributed to medication. Physical Examination: Afebrile and vital signs unremarkable. Patient is alert and oriented. Appears uncomfortable. Reluctant to move. HEENT exam unremarkable. Cranial nerves grossly intact. Heart regular. Lungs clear. Skin appears normal without rash or pallor. Normal strength and sensation, symmetric. Normal cerebellar testing. Test Results: EKG showed sinus rhythm. CBC, BMP, coags, troponin unremarkable. Chest x-ray and CT brain showed no acute findings. Emergency Department Course and Treatment: Patient presents with acute vestibular syndrome. He was treated with Ativan. Because of his symptoms, workup was pursued. This workup was unremarkable. I reassessed the patient and he was still having severe symptoms. He was also treated with meclizine. He did not feel comfortable going home because of the severity of his symptoms. He did not feel comfortable walking. I added on CTA brain and neck. These were unremarkable. I reevaluated the patient again. He was able to walk. His symptoms had improved. He would like to go home. I advised him that we have not 100% rule out stroke, but his symptoms and workup so far has been reassuring. He will follow-up with his doctor. Return for any new or worsening issues. Treatment Plan: As above Disposition: Discharge Impression: 1. Vertigo This note was generated with [employer] dictation software. It may contain incorrect words, spelling, and punctuation that were not noted in review of the chart prior to signing ED Disposition - Plan for ED Patient: Referrals: Lan Lopez MD [Primary Care Provider] -
--- NOTE | 2018-08-20 00:04 | ED.DEP ---
ED Disposition - Plan for ED Patient: Instructions: ED Vertigo Unspecified Prescriptions: Meclizine HCl [Antivert] 25 mg PO TID PRN PRN #20 tab PRN Reason: Dizziness Referrals: Lan Lopez MD [Primary Care Provider] -
[2018-08-20 00:16] VITALS: BP 116/92; PULSE 79; RESP 16; O2SAT 97
== END 2018-08-20 00:17 | disposition home or self-care (01) ==
PROVIDERS: Emergency Provider Emergency Medicine; Family Provider Family Medicine; PCP Family Medicine
DX: R42 Dizziness and giddiness (principal); F32.9 Major depressive disorder, single episode, unspecified; Z87.891 Personal history of nicotine dependence
CPT/HCPCS: 70450; 70496; 70498; 71045; 80048; 84484; 85025; 85610; 85730; 93005; 96374; 99285; Q9967; A4216

== ENCOUNTER → 2019-02-13 10:47 | Outpatient (CLI) | payer OTHER, SELFPAY ==
[2019-02-13 10:44] VITALS: BMI 43.4
--- NOTE | 2019-02-13 10:54 | RAD_ITS ---
STUDY: X-RAY - RIGHT ANKLE REASON FOR EXAM: Male, 53 years old. Lateral pain and swelling following a twisting injury. TECHNIQUE: 3 view(s) of the ankle. COMPARISON: None. FINDINGS: Normal visualized distal tibia and fibula. Normal medial and lateral malleoli. Normal tibiotalar articulation and ankle mortise. Plantar spur. A spur is seen at the insertion of the Achilles tendon. Degenerative changes at the level of the talonavicular joint with old avulsion fracture of the navicular bone. Soft tissue swelling. RAD/Ankle min 3 Views IMPRESSION: Chronic degenerative changes. Soft tissue swelling. Electronically Signed: Liam Lazar, at 11:11 EDT , Service support ,
== END ==
PROVIDERS: Family Provider Family Medicine; PCP Family Medicine; Referring Provider Physician Assistant Surgical; Visit Provider Physician Assistant Surgical
DX: S93.401A Sprain of unspecified ligament of right ankle, initial encounter (principal); X50.1XXA Overexertion from prolonged static or awkward postures, initial encounter; M19.071 Primary osteoarthritis, right ankle and foot
CPT/HCPCS: 73610

== ENCOUNTER 2019-06-23 14:11 | Emergency (ER) | payer OTHER, SELFPAY ==
[2019-02-13 10:44] VITALS: BMI 43.4
[2019-06-23 14:12] VITALS: BP 145/85; PULSE 87; RESP 16; TEMP 36.3; O2SAT 95; BMI 45.4
== END 2019-06-23 14:50 | disposition left against medical advice (07) ==
LOC: ED 14:45
PROVIDERS: Emergency Provider Emergency Medicine; PCP Family Medicine
DX: R69 Illness, unspecified (principal); Z53.21 Procedure and treatment not carried out due to patient leaving prior to being seen by health care provider

== ENCOUNTER 2020-02-29 12:27 | Emergency (ER) | payer OTHER, SELFPAY ==
[2020-02-29 12:29] VITALS: BP 151/78; PULSE 87; RESP 19; TEMP 36.6; O2SAT 96; BMI 47.5
--- NOTE | 2020-02-29 12:47 | RAD_ITS ---
STUDY: X-RAY CHEST REASON FOR EXAM: Male, 54 years old. COUGH, SOB, CONGESTION X 3 DAYS, TODAY WOKE W/CHEST TIGHTNESS TECHNIQUE: Single AP portable view of the chest. COMPARISON: Comparison is made with prior study dated 08/19/2018. FINDINGS: The lungs are clear and expanded. Scattered calcified granulomas. There is no demonstrated pleural abnormality. Normal size heart. Normal mediastinum and claudia. Normal visualized pulmonary arteries. Normal visualized aortic arch and descending thoracic aorta. There are degenerative changes of the visualized thoracic spine. Normal visualized ribs, clavicles, and shoulders. There is no demonstrated abnormality of the visualized soft tissue structures of the upper abdomen. RAD/Chest 1 View (Portable) IMPRESSION: No acute abnormality is seen. Electronically Signed: Liam Lazar, at 13:36 EDT , Service support ,
--- NOTE | 2020-02-29 12:48 | EKG12_ITS ---
Test Reason : COVID Blood Pressure : / mmHG Vent. Rate : 075 BPM Atrial Rate : 075 BPM P-R Int : 148 ms QRS Dur : 078 ms QT Int : 360 ms P-R-T Axes : 057 -04 020 degrees QTc Int : 402 ms Normal sinus rhythm Normal ECG Confirmed by AUBREY HICKEY, JP ([id number]), deputy editor in chief FLORESITA LEAVITT ([id number]) on 03/13/2020 9:43:12 A M Referred By: JOAO Confirmed By:AZ BURGOS MD
--- NOTE | 2020-02-29 12:58 | ED.VISSUMM ---
- ER Visit Summary Date of Service: 02/29/20 Chief Complaint: Cough, congestion History of Present Illness: The patient is a 54 M presenting with cough, congestion. Patient states this started on Tuesday night. He had a COVID test on Tuesday which was negative. He is tested regularly for COVID at work either every week or every other week. He has always tested negative thus far. He works in a assisted and wears PPE. He states they had an outbreak at his assisted, the last positive test was 2 weeks ago. He complains of subjective fever and chills. He has sore throat. He has shortness of breath and productive cough. He has nausea and diarrhea. He has myalgias. He went to urgent care today and had a fever and was sent to the ED. Physical Examination: Vitals are stable. Patient is afebrile. Alert no acute distress. Pulse ox 96% on room air HEENT exam is unremarkable. Neck is supple. Lungs are clear and equal bilaterally. Heart is regular rate and rhythm. Abdomen is soft nontender nondistended. Extremities are unremarkable. Skin is warm and dry. No focal neurologic deficit. Remainder of exam is unremarkable. Emergency Department Course and Treatment: CBC, chemistries unremarkable. Troponin is negative. EKG sinus rate of 75 with no acute ischemic changes. Urinalysis unremarkable. Chest x-ray shows no acute process. His ambulatory pulse ox is 96% on room air. With his symptoms I suspect COVID, a COVID test was sent and is pending. He is advised to quarantine until results come back. Advised to return to the ED for worsening complaints. Disposition: Discharge home Impression: Viral syndrome, suspect COVID This note was generated with [employer] dictation software. It may contain incorrect words, spelling, and punctuation that were not noted in review of the chart prior to signing ED Disposition - Plan for ED Patient: Instructions: ED Viral Syndrome Referrals: Lan Lopez MD [Primary Care Provider] -
[2020-02-29 13:18] LABS: Absolute Lymphocyte Count 1.71 X10^3/uL (0.83-4.51); Absolute Neutrophil Count 3.5 X10^3/uL (2.0-7.7); Basophil# 0.05 X10^3/uL; Basophil% 0.9 % (0-1); Eosinophil# 0.14 X10^3/uL; Eosinophils% 2.4 % (0-5); Hematocrit 43.6 % (40-54); Hemoglobin 14.5 g/dL (13.0-16.5); Lymphocyte # 1.71 X10^3/ul (4.0); Lymphocyte % 29.1 % (19-41); Mean Corp Hgb Conc 33.3 g/dL (32-36); Mean Corpuscular Hgb 31.1 pg (27.0-32.0); Mean Corpuscular Volume 93.6 fL (80-94); Mean Platelet Vol. 8.4 fl (6.2-12.0); Monocyte# 0.46 X10^3/uL; Monocyte% 7.8 % (0-10); NRBC Flagged by Analyzer 0 % (0-5); Neutrophil % 59.5 % (47-70); Platelet Count 328 K/mm3 (150-450); RBC Distribution Width CV 13.3 % (11.6-14.6); RBC Distribution Width SD 45.3 fl (35.1-43.9); Red Blood Count 4.66 M/mm3 (4.6-6.2); White Blood Count 5.9 K/mm3 (4.4-11.0)
[2020-02-29 13:37] LABS: Anion Gap 2 (5-15); BUN 14 mg/dL (7-18); BUN/Creat Ratio 12.3 RATIO (10-20); Calcium,Total 9.2 mg/dL (8.5-10.1); Chloride 108 mmol/L (98-107); Creatinine, Serum 1.14 mg/dL (0.70-1.30); EST Glomerular Filtration Rate 72 mL/min (>60); Est Glom Filt Rate - Afr Amer 87 mL/min (>60); Glucose 92 mg/dL (74-106); Sodium Level 142 mmol/L (136-145)
[2020-02-29 13:54] LABS: Red Blood Cells-Urine 0 SEEN /hpf (0-5)
[2020-02-29 14:00] LABS: Color, Urine Yellow (Yellow); Glucose, Dipstick Normal (Normal); Ketone-Dipstick Negative (Negative); Leukocyte Esterase-Dipstick Negative /ul (Negative); Nitrite-Dipstick Negative (Negative); Occult Blood-Urine Negative /ul (Negative); Protein-Dipstick 30 mg/dl (Negative); Urine Bilirubin Dipstick Negative (Negative); Urine Clarity Clear (Clear); Urine Urobilinogen 4 mg/dl (Normal); Urine pH 6.5 (5.0 - 8.0)
[2020-02-29 14:07] LABS: Bacteria RARE /hpf (None Seen); Mucous, Urine RARE /hpf (<or=2+); Squamous Epithelial Cells - UA 0-5 SEEN /hpf (0-5); White Blood Cells 0-5 SEEN /hpf (0-5)
--- NOTE | 2020-02-29 14:34 | ED.DEP ---
ED Disposition - Plan for ED Patient: Instructions: ED Viral Syndrome Referrals: Lan Lopez MD [Primary Care Provider] -
[2020-02-29 14:52] VITALS: BP 145/70; PULSE 85; RESP 18; O2SAT 94
== END 2020-02-29 14:53 | disposition home or self-care (01) ==
PROVIDERS: Emergency Provider Emergency Medicine; PCP Family Medicine
CPT/HCPCS: 71045; 80048; 81001; 84484; 85025; 87635; 93005; 99281; 99284; A4216; U0003

== ENCOUNTER → 2020-08-04 14:02 | Outpatient (CLI) | payer OTHER, SELFPAY ==
--- NOTE | 2020-08-04 14:05 | US_ITS ---
STUDY: SUPERFICIAL ULTRASOUND - POPLITEAL FOSSA. REASON FOR EXAM: Male, 54 years old. ACUTE PAIN OF BOTH KNEES,ABN XRAY -- SUSPECT BAKERS CYST TECHNIQUE: A superficial ultrasound was performed with real-time and static stringer-scale imaging. COMPARISON: None. FINDINGS: The popliteal region of the right knee joint was examined. There is evidence of a 1.7 cm x 1.5 cm x 1 cm right popliteal cyst. IMPRESSION: Findings in keeping with a 1.7 cm x 1.5 cm x 1 cm popliteal cyst. Electronically Signed: Liam Lazar MD at 15:53 EDT , Service support , STUDY: SUPERFICIAL ULTRASOUND - LEFT POPLITEAL FOSSA. REASON FOR EXAM: Male, 54 years old. ACUTE PAIN OF BOTH KNEES,ABN XRAY -- SUSPECT BAKERS CYST TECHNIQUE: A superficial ultrasound was performed with real-time and static stringer-scale imaging. COMPARISON: None. FINDINGS: Examination of the left popliteal fossa was performed with ultrasound. No sonographic abnormality is seen. US/Ext Non Vasc Limited/Soft Tiss IMPRESSION: No sonographic abnormality is seen. Electronically Signed: Liam Lazar MD at 15:54 EDT , Service support ,
== END ==
LOC: US 14:03
PROVIDERS: PCP Family Medicine; Referring Provider Physician Assistant; Visit Provider Physician Assistant
DX: M71.21 Synovial cyst of popliteal space [Baker], right knee (principal); M25.562 Pain in left knee; R93.89 Abnormal findings on diagnostic imaging of other specified body structures
CPT/HCPCS: 76882

== ENCOUNTER 2020-11-08 11:18 | Emergency (ER) | payer OTHER, SELFPAY ==
[2020-11-08 11:19] VITALS: BP 123/79; PULSE 78; RESP 15; TEMP 36.9; O2SAT 96; BMI 46.7
--- NOTE | 2020-11-08 11:33 | CT_ITS ---
HISTORY: left flank pain. TECHNIQUE: Helically acquired images were obtained of the abdomen and pelvis with IV contrast. A radiation dose optimization technique was used for this scan. IV Contrast dosage and agent: 100 mL [id number]-300 IV. Oral contrast: None. # of images incl. paperwork: 491. COMPARISON: None. FINDINGS: LOWER CHEST: Lung bases clear. BOWEL: Bowel including appendix nondilated. No focal pericolonic inflammation. LIVER: Fatty infiltration. GALLBLADDER/BILIARY TREE: Gallbladder present. SPLEEN/PANCREAS: Homogeneous. KIDNEYS: No hydronephrosis. 3.6 cm right renal sinus cyst. 2.2 cm left upper pole cyst. ADRENAL GLANDS: Unremarkable. PERITONEUM: No significant ascites. VESSELS: No abdominal aortic aneurysm. PELVIC ORGANS: Unremarkable. ABDOMINAL WALL: Small fat-containing right inguinal hernia. BONES: Mild degenerative change. CT/Abdomen/Pelvis W IV Cont ONLY IMPRESSION: No acute abnormality identified. Hepatic steatosis. Bilateral renal cysts. Individualized dose optimization techniques were used for this CT. at 1345 Reported and signed by: Celena Uriarte MD Electronically Signed: Celena Uriarte MD at 13:43 EDT Tel , Service support ,
--- NOTE | 2020-11-08 11:33 | EKG12_ITS ---
Test Reason : ABDOMINAL PAIN Blood Pressure : / mmHG Vent. Rate : 069 BPM Atrial Rate : 069 BPM P-R Int : 158 ms QRS Dur : 078 ms QT Int : 378 ms P-R-T Axes : 046 -09 -01 degrees QTc Int : 405 ms Normal sinus rhythm Normal ECG Confirmed by TERRI HICKEY, ROQUE ([id number]), editorial clerk FLORESITA LEAVITT ([id number]) on 11/11/2020 8:48:54 AM Referred By: CL Confirmed By:ROQUE MURRAY MD
[2020-11-08 12:31] LABS: Bacteria 0 SEEN /hpf (None Seen); Mucous, Urine 0 SEEN /hpf (<or=2+); Red Blood Cells-Urine 0 SEEN /hpf (0-5); White Blood Cells 0 SEEN /hpf (0-5)
[2020-11-08 12:37] LABS: Absolute Lymphocyte Count 1.98 X10^3/uL (0.83-4.51); Absolute Neutrophil Count 3.2 X10^3/uL (2.0-7.7); Basophil# 0.05 X10^3/uL; Basophil% 0.9 % (0-1); Eosinophil# 0.17 X10^3/uL; Eosinophils% 2.9 % (0-5); Hematocrit 45.1 % (40-54); Hemoglobin 14.7 g/dL (13.0-16.5); Lymphocyte # 1.98 X10^3/ul (0.83-4.51); Lymphocyte % 34.1 % (19-41); Mean Corp Hgb Conc 32.6 g/dL (32-36); Mean Corpuscular Hgb 30.2 pg (27.0-32.0); Mean Corpuscular Volume 92.6 fL (80-94); Mean Platelet Vol. 8.9 fl (6.2-12.0); Monocyte# 0.43 X10^3/uL; Monocyte% 7.4 % (0-10); NRBC Flagged by Analyzer 0 % (0-5); Neutrophil # 3.15 X10^3/uL (2.7-7.7); Neutrophil % 54.4 % (47-70); Platelet Count 274 K/mm3 (150-450); RBC Distribution Width CV 13.5 % (11.6-14.6); RBC Distribution Width SD 46.1 fl (35.1-43.9); Red Blood Count 4.87 M/mm3 (4.6-6.2); White Blood Count 5.8 K/mm3 (4.4-11.0)
[2020-11-08 12:43] LABS: Color, Urine Yellow (Yellow); Glucose, Dipstick Normal (Normal); Ketone-Dipstick Negative (Negative); Leukocyte Esterase-Dipstick Negative /ul (Negative); Nitrite-Dipstick Negative (Negative); Occult Blood-Urine Negative /ul (Negative); Protein-Dipstick Negative (Negative); Specific Gravity, Urine 1.015 (1.002-1.030); Urine Bilirubin Dipstick Negative (Negative); Urine Clarity Sl. Cloudy (Clear); Urine Urobilinogen Normal (Normal)
[2020-11-08 12:51] LABS: ALB/GLOB Ratio 1.1 RATIO (0.9-2.4); AST(SGOT) 17 U/L (15-37); Alanine Aminotransfer ALT/SGPT 29 U/L (16-61); Alkaline Phosphatase 67 U/L (45-117); Anion Gap 4 (5-15); BUN 10 mg/dL (7-18); BUN/Creat Ratio 8.4 RATIO (10-20); Chloride 106 mmol/L (98-107); Creatinine, Serum 1.19 mg/dL (0.70-1.30); EST Glomerular Filtration Rate 68 mL/min (>60); Est Glom Filt Rate - Afr Amer 82 mL/min (>60); Estimated Creatinine Clearance 76.46 ml/min; Globulin 3.6 g/dL (2.2-4.2); Glucose 91 mg/dL (74-106); Potassium 4.1 mmol/L (3.5-5.1); Protein, Total 7.6 g/dL (6.4-8.2); Sodium Level 141 mmol/L (136-145); Troponin-I HS 3.9 pg/mL (3.0-78.5)
[2020-11-08 12:55] LABS: Squamous Epithelial Cells - UA 0-5 SEEN /hpf (0-5)
--- NOTE | 2020-11-08 14:13 | EDS_ITS ---
HPI History of Present Illness Chief Complaint: Abd Pain Narrative Narrative: 55-year-old male presents with left flank pain. States is been present over the past week. Worsening recently. States it is worse when sitting. Sharp in nature. States that he does have urinary frequency without burning. Denies any fever or chills. Patient states he did have fleeting chest pain 2 days ago. None since. Denies any shortness of breath, nausea, vomiting, diaphoresis. PFSH PFSH Medical History Anxiety Home Medications paroxetine HCl 40 mg PO DAILY 05/29/13 [History Last Taken Unknown] naproxen 500 mg PO BID #10 tab 11/08/20 [Rx Last Taken Unknown] Allergy/AdvReac Type Severity Reaction Status Date / Time Penicillins Allergy Other Verified 11/08/20 11:18 zolpidem [From Ambien] Allergy PT UNSURE Verified 11/08/20 11:18 OF REACTION Social History Smoking Status: Former smoker Smokeless tobacco user: chewing tobacco alcohol intake: never ROS ROS ED Constitutional Constitutional ED: Denies chills, fever(s) or sweats Eyes Eyes: Denies blurry vision, change in vision or diplopia ENT ENT ED: Denies rhinorrhea or sore throat Cardiovascular Cardiovascular: Reports chest pain; Denies orthopnea, palpitations or racing heartbeat Respiratory/Chest Respiratory/Chest: Denies cough, dyspnea, dyspnea on exertion, orthopnea or sputum Gastrointestinal Gastrointestinal: Reports abdominal pain; Denies constipation, diarrhea, melena, nausea or vomiting Genitourinary Genitourinary ED: Denies dysuria, hematuria or urinary frequency Musculoskeletal Musculoskeletal: Denies arthralgias, myalgias or neck pain Integumentary Denies rash Neurologic Neurologic: Denies headache(s), paresthesias or weakness Psychiatric Psychiatric: Denies anxiety or depression Hematologic/Lymphatic Hematologic/Lymphatic: Denies easy bleeding or easy bruising Allergic/Immunologic Allergic/Immunologic ED: Denies mouth swelling or tongue swelling EXAM Physical Exam Const Vital Signs: 11/08/20 11:19 Temperature 98.5 F Temperature Source Temporal Pulse Rate 78 Respiratory Rate 15 Blood Pressure 123/79 H Blood Pressure Mean 93 Pulse Ox 96 Oxygen Delivery Method Room Air Positive well nourished and well developed General Appearance ED: well developed HEENT Reports TM's clear and moist mucous membranes normocephalic and atraumatic Tympanic Membrane ED: Yes TM's clear Eyes PERRL and EOMs intact bilaterally Neck no lymphadenopathy, supple and no JVD Chest Wall inspection of chest normal Resp normal respiratory effort and clear to auscultation bilaterally Cardio regular rate, S1 normal heart sound, S2 normal heart sound and no murmurs Peripheral Pulses: pulses 2+ throughout GI soft to palpation, non-tender and non-distended Back/Spine no CVA tenderness and no thoracic nor lumbar tenderness Extremity normal to inspection General Extremety ED: Negative for edema or tenderness General Extremity: Negative for edema Neuro oriented x3, CN's II-XII intact bilaterally and no sensory deficits noted Sensorium / Orientation: alert Motor Exam: strength 5/5 throughout Psych mental status grossly normal Skin no rashes or lesions noted MDM MDM MDM Narrative Medical decision making narrative: Patient appears well and nontoxic. Vital signs within normal limits. EKG nonischemic. Lab work within normal limits including a negative troponin. Urine shows no evidence of infection or micr oscopic hematuria. CT with IV contrast shows no acute process. After discussion with patient he be placed on 5 days Naprosyn and follow-up with his primary care provider. Patient agreeable and discharged home in stable condition. Lab Data Attestation: I reviewed the patient's lab results. Labs: Laboratory Results - last 24 hr 11/08/20 11/08/20 11/08/20 12:25 12:25 12:25 WBC 5.8 RBC 4.87 Hgb 14.7 Hct 45.1 MCV 92.6 MCH 30.2 MCHC 32.6 RDW Std Deviation 46.1 H RDW Coeff of Maritza 13.5 Plt Count 274 MPV 8.9 Immature Gran % (Auto) 0.300 Neut % (Auto) 54.4 Lymph % (Auto) 34.1 Pershing % (Auto) 7.4 Eos % (Auto) 2.9 Baso % (Auto) 0.9 Absolute Neuts (auto) 3.2 Absolute Lymphs (auto) 1.98 Nucleated RBC % 0 Sodium 141 Potassium 4.1 Chloride 106 Carbon Dioxide 31.0 Anion Gap 4 L BUN 10 Creatinine 1.19 Estim Creat Clear Calc 76.46 Est GFR (MDRD) Af Amer 82 Est GFR (MDRD) Non-Af 68 BUN/Creatinine Ratio 8.4 L Glucose 91 Calcium 9.0 Total Bilirubin 0.50 AST 17 ALT 29 Alkaline Phosphatase 67 Troponin I High Sens 3.9 Total Protein 7.6 Albumin 4.0 Globulin 3.6 Albumin/Globulin Ratio 1.1 Urine Color Yellow Urine Clarity Sl. Cloudy Urine pH 5.0 Ur Specific [place] 1.015 Urine Protein Negative Urine Glucose (UA) Normal Urine Ketones Negative Urine Occult Blood Negative Urine Nitrite Negative Urine Bilirubin Negative Urine Urobilinogen Normal Ur Leukocyte Esterase Negative Urine RBC 0 SEEN Urine WBC 0 SEEN Ur Squamous Epith Cells 0-5 SEEN Urine Bacteria 0 SEEN Urine Mucus 0 SEEN Radiography Diagnostic Testing: Radiology Impression Abdomen/Pelvis CT 11/08/20 11:33 IMPRESSION: No acute abnormality identified. Hepatic steatosis. Bilateral renal cysts. Individualized dose optimization techniques were used for this CT. at 1345 Reported and signed by: Celena Uriarte MD Electronically Signed: Celena Uriarte MD at 13:43 EDT Tel , Service support , Rhythm Strip Rhythm Strip: Sinus Rhythm Rate: 69 Ectopy: None EKG Initial EKG: Attestation: I personally reviewed and interpreted this EKG as follows: Interpretation: Sinus Rhythm Comments: Normal sinus rhythm at 69 bpm. TX interval of 158 ms. QTC of 405 ms. No evidence of ST elevation or depression at this time. Discharge Plan Triage Chief Complaint: Abd Pain ED Provider: Gunner Guan Dx/Rx/DC Orders Clinical Impression: Abdominal pain, Chest pain Instructions: ED Flank Pain, Uncertain Cause Prescriptions: New naproxen 500 mg tablet 500 mg PO BID Qty: 10 RF: 0 No Action paroxetine HCl 40 MG tablet 40 mg PO DAILY RF: 0 Primary Care Provider: Lan Lopez Referrals: Lan Lopez MD [Primary Care Provider] - 2 Days Disposition Disposition: Home, Self Care
[2020-11-08 14:42] VITALS: BP 123/78; PULSE 71; RESP 18; O2SAT 98
== END 2020-11-08 14:48 | disposition home or self-care (01) ==
PROVIDERS: Emergency Provider Emergency Medicine; PCP Family Medicine
DX: R10.9 Unspecified abdominal pain (principal); R07.9 Chest pain, unspecified; Z87.891 Personal history of nicotine dependence; Z79.899 Other long term (current) drug therapy
CPT/HCPCS: 74177; 80053; 81001; 84484; 85025; 93005; 99282; Q9967; A4216

== ENCOUNTER 2021-04-20 12:55 | Emergency (ER) | payer OTHER, SELFPAY ==
[2021-04-20 12:55] VITALS: BP 147/94; PULSE 87; RESP 16; TEMP 36.4; O2SAT 98; BMI 50.9
== END 2021-04-20 14:50 | disposition left against medical advice (07) ==
LOC: ED 15:12
PROVIDERS: PCP Family Medicine
DX: Z53.21 Procedure and treatment not carried out due to patient leaving prior to being seen by health care provider (principal)

== ENCOUNTER 2021-04-26 18:33 | Emergency (ER) | payer OTHER, SELFPAY ==
[2021-04-26 18:33] VITALS: BP 125/83; PULSE 92; RESP 16; TEMP 37.1; O2SAT 93; BMI 44.2
[2021-04-26 18:38] VITALS: BP 125/83; PULSE 92; RESP 16; TEMP 37.1; O2SAT 93
--- NOTE | 2021-04-26 19:05 | EKG12_ITS ---
Test Reason : GEN ILL Blood Pressure : / mmHG Vent. Rate : 097 BPM Atrial Rate : 097 BPM P-R Int : 146 ms QRS Dur : 076 ms QT Int : 342 ms P-R-T Axes : 044 -13 014 degrees QTc Int : 434 ms Normal sinus rhythm Low voltage QRS (Limb Leads) Confirmed by SEVERIANO HICKEY, NADEGE ([id number]), map editor FLORESITA LEAVITT ([id number]) on 04/29/2021 11:12:48 AM Referred By: SHAN Confirmed By:NADEGE العلي MD
--- NOTE | 2021-04-26 19:05 | RAD_ITS ---
EXAM: XR CHEST, 1 VIEW : 1965 CLINICAL INDICATION: dyspnea TECHNIQUE: Frontal view of the chest. This report was created using [employer] report generation technology. COMPARISON: 02/29/2020 FINDINGS: LUNGS AND PLEURAL SPACES: There is bilateral airspace disease greatest in the right lower lobe. No pneumothorax. No effusion. HEART: Unremarkable. Cardiac silhouette not enlarged. MEDIASTINUM: Central airways and mediastinal contour are unremarkable. BONES/JOINTS: Unremarkable. SOFT TISSUES: Unremarkable. RAD/Chest 1 View (Portable) IMPRESSION: Bilateral airspace disease which may represent pneumonia. at 2018 Reported and signed by: Timo Mustafa MD Electronically Signed: Timo Mustafa MD at 20:17 EST Tel , Service support ,
--- NOTE | 2021-04-26 19:07 | EX.ED.DYSGE1 ---
HPI History of Present Illness Chief Complaint: General Illness Detail of Chief Complaint: Shortness of breath, weakness, syncope Informant: patient Narrative Narrative: Patient presents to the emergency department complaint of shortness of breath that is progressively gotten worse today. Patient states that he was diagnosed with COVID-19 8 days ago. Patient thought he was doing relatively well until symptoms started to worsen today. Patient states that he walk to the bathroom this morning and on the way back he felt like he was going to pass out and cut and got wedged between the bed and his nightstand and was unconscious for short time but did not fall or injure himself states the bed caught him. Patient otherwise has no significant medical history. Patient has not been immunized against COVID-19. Patient complains of loss of smell and body aches. Patient has diarrhea that started today. Patient's had decreased appetite. [facility] Medical History Anxiety Home Medications paroxetine HCl 40 mg PO DAILY 05/29/13 [History Last Taken Unknown] naproxen 500 mg PO BID #10 tab 11/08/20 [Rx Last Taken Unknown] Allergy/AdvReac Type Severity Reaction Status Date / Time Penicillins Allergy Other Verified 11/08/20 11:18 zolpidem [From Ambien] Allergy PT UNSURE Verified 11/08/20 11:18 OF REACTION Social History Smoking Status: Former smoker Smokeless tobacco user: chewing tobacco alcohol intake: never ROS ROS ED Constitutional Constitutional ED: Reports systems reviewed and no addt'l complaints, except as documented and fever(s); Denies body ache(s), change in weight or chills Eyes Eyes: Denies acute decrease in peripheral vision, change in vision, double vision or loss of vision ENT ENT ED: Reports none; Denies ear pain, lip swelling, loss taste/smell, neck pain, otalgia or sore throat Cardiovascular Cardiovascular: Reports none; Denies abdominal pain, chest pain with activity, leg edema, lightheadedness, palpitations, rapid heart rate or syncope Respiratory/Chest Respiratory/Chest: Reports none, cough and dyspnea; Denies change in mental status, dry cough, hemoptysis, shortness of breath at rest or shortness of breath with exertion Gastrointestinal Gastrointestinal: Reports none and diarrhea; Denies abdominal pain, change in stool character, hematemesis, hematochezia, melena, rectal bleeding or vomiting Genitourinary Genitourinary ED: Reports none; Denies abdominal discomfort, anuria, dysuria, genital pain or polyuria Musculoskeletal Musculoskeletal: Reports none; Denies arthralgias, back pain, difficulty walking, extremity pain, muscle weakness or myalgias Integumentary Reports none; Denies abscess or rash Neurologic Neurologic: Reports none, headache(s) and weakness; Denies abnormal gait, confusion, focal weakness, frequent falls, loss of vision, numbness, paresthesias, radicular pain or vertigo Psychiatric Psychiatric: Reports systems reviewed and no addt'l complaints, except as documented and none; Denies behavioral changes, confusion, difficulty concentrating, hallucinations, suicidal ideation, tactile hallucinations or visual hallucinations Endocrine Endocrinology: Denies none, cold intolerance, excessive sweating, fatigue or heat intolerance Hematologic/Lymphatic Hematologic/Lymphatic: Reports none; Denies anemia, easy bleeding or easy bruising Allergic/Immunologic Allergic/Immunologic ED: Denies as per HPI, none, lip swelling, mouth swelling, throat swelling, tongue swelling or hives EXAM Physical Exam Const Vital Signs: 04/26/21 18:33 04/26/21 18:38 04/26/21 18:58 Temperature 98.7 F 98.7 F Temperature Source Oral Oral Pulse Rate 92 92 Pulse Rate [Lying] Pulse Rate [Sitting] Pulse Rate [Standing] Respiratory Rate 16 16 Respiratory Effort Short of Breath Blood Pressure 125/83 H 125/83 H Blood Pressure [Lying] Blood Pressure [Sitting] Blood Pressure [Standing] Blood Pressure Mean 97 97 Blood Pressure Mean [Lying] Blood Pressure Mean [Sitting] Blood Pressure Mean [Standing] Pulse Ox 93 93 Oxygen Delivery Method Room Air Room Air 04/26/21 19:20 04/26/21 20:33 Temperature Temperature Source Pulse Rate 69 Pulse Rate [Lying] 93 Pulse Rate [Sitting] 93 Pulse Rate [Standing] 115 H Respiratory Rate 15 Respiratory Effort Blood Pressure 121/83 H Blood Pressure [Lying] 117/77 Blood Pressure [Sitting] 125/91 H Blood Pressure [Standing] 108/86 H Blood Pressure Mean 95 Blood Pressure Mean [Lying] 90 Blood Pressure Mean [Sitting] 102 Blood Pressure Mean [Standing] 93 Pulse Ox 93 Oxygen Delivery Method Room Air Positive well nourished and well developed General Appearance ED: well developed and NAD HEENT Reports TM's clear and moist mucous membranes normocephalic and atraumatic; Negative for trauma or tenderness Tympanic Membrane ED: Yes TM's clear Eyes PERRL and EOMs intact bilaterally General Eye ED: Negative for pale conjunctiva or scleral icterus Neck no lymphadenopathy, supple and no JVD General: Negative for tenderness Chest Wall inspection of chest normal and palpation of chest normal Chest: Negative for tenderness Resp normal respiratory effort and clear to auscultation bilaterally Effort and Inspection: Negative for respiratory distress or pain with movement Auscultation: Negative for rhonchi, wheezes or diminished lung sounds Cardio regular rate, regular rhythm, S1 normal heart sound, S2 normal heart sound and no murmurs Peripheral Pulses: pulses 2+ throughout GI normal to inspection, nondistended, normoactive bowel sounds, soft to palpation, non-tender, non-distended and no masses Back/Spine no CVA tenderness and no thoracic nor lumbar tenderness Extremity normal to inspection General Extremety ED: Negative for edema General Extremity: Negative for edema Neuro oriented x3, CN's II-XII intact bilaterally, no sensory deficits noted and gait normal Sensorium / Orientation: awake, alert, oriented to person, oriented to place and oriented to time Motor Exam: strength 5/5 throughout and strength abnormal Psych mental status grossly normal Skin no rashes or lesions noted and no wounds MDM MDM MDM Narrative Medical decision making narrative: IV line established on arrival. Patient was given normal saline. We attempted to do orthostatic vitals however patient was dizzy with standing however is blood pressure did not seem to bottom out. Patient's CTA was negative for PE but did show bilateral Covid-like infiltrates. Beyond that patient is not hypoxic with ambulation I feel he can be discharged to home. He is interested in monoclonal antibody infusion for which I will make a referral for him. Patient advised to monitor his pulse oximeter and to return if increasing shortness of breath or condition should worsen anyway. Lab Data Attestation: I reviewed the patient's lab results. Labs: Laboratory Results - last 24 hr 04/26/21 04/26/21 04/26/21 18:50 18:50 18:50 WBC 4.5 RBC 4.97 Hgb 15.5 Hct 44.1 MCV 88.7 MCH 31.2 MCHC 35.1 RDW Std Deviation 43.3 RDW Coeff of Maritza 13.2 Plt Count 220 MPV 9.0 Immature Gran % (Auto) 0.200 Neut % (Auto) 68.2 Lymph % (Auto) 26.5 Christian % (Auto) 4.9 Eos % (Auto) 0.0 Baso % (Auto) 0.2 Absolute Neuts (auto) 3.0 Absolute Lymphs (auto) 1.18 Nucleated RBC % 0 D-Dimer Quant (PE/DVT) 0.84 H* Sodium 134 L Potassium 3.7 Chloride 101 Carbon Dioxide 25.0 Anion Gap 8 BUN 18 Creatinine 1.18 Estim Creat Clear Calc 79.46 Est GFR (MDRD) Af Amer 83 Est GFR (MDRD) Non-Af 69 BUN/Creatinine Ratio 15.3 Glucose 116 H Calcium 8.7 Troponin I High Sens 8 Radiography Chest X-Ray - ED: 1 View Diagnostic Testing: Clinical Impression(s) from Imaging Studies Chest X-Ray 04/26/21 19:05 IMPRESSION: Bilateral airspace disease which may represent pneumonia. at 2018 Reported and signed by: Timo Mustafa MD Electronically Signed: Timo Mustafa MD at 20:17 EST Tel , Service support , Chest CTA 04/26/21 19:42 IMPRESSION: 1. No evidence of pulmonary embolus. 2. Patchy bilateral areas of groundglass opacities. Imaging features can be seen with COVID 19 pneumonia, though are nonspecific and can occur with a variety of infectious and noninfectious processes. Individualized dose optimization techniques were used for this CT. at 2106 Reported and signed by: Timo Mustafa MD Electronically Signed: Timo Mustafa MD at 21:04 EST Tel , Service support , 1 view chest x-ray obtained interpreted by myself as bibasilar infiltrates. Radiology in agreement. EKG Initial EKG: Attestation: I personally reviewed and interpreted this EKG as follows: Comments: Sinus rhythm with a ventricular rate of 97 bpm with no acute ST segment changes Discharge Plan Triage Chief Complaint: General Illness ED Provider: Ethel Adame Dx/Rx/DC Orders Clinical Impression: COVID-19, Syncope Instructions: ED - COVID Monoclonal AB Infusion ..., ED Fainting, Uncertain Cause, Caring for Someone Who Has COVID-19 Prescriptions: No Action paroxetine HCl 40 MG tablet 40 mg PO DAILY RF: 0 naproxen 500 mg tablet 500 mg PO BID Qty: 10 RF: 0 Other Ambulatory Orders: JAISONID Outpatient Monoclonal Antibody Referral (Routine) Timeframe: 1 Day Facility: [facility] - Location: [facility] Ordered By: Dr. Ethel AKERS Outpatient Monoclonal Antibody Referral (Routine) Timeframe: 1 Day Facility: [facility] - Location: [facility] Ordered By: Dr. Ethel Adame Primary Care Provider: Lan Lopez Referrals: Lan Lopez MD [Primary Care Provider] - 3-5 Days Disposition Disposition: Home, Self Care
[2021-04-26 19:18] LABS: Absolute Lymphocyte Count 1.18 X10^3/uL (0.83-4.51); Basophil# 0.01 X10^3/uL; Basophil% 0.2 % (0-1); Hematocrit 44.1 % (40-54); Hemoglobin 15.5 g/dL (13.0-16.5); Lymphocyte # 1.18 X10^3/ul (0.83-4.51); Lymphocyte % 26.5 % (19-41); Mean Corp Hgb Conc 35.1 g/dL (32-36); Mean Corpuscular Hgb 31.2 pg (27.0-32.0); Mean Corpuscular Volume 88.7 fL (80-94); Monocyte# 0.22 X10^3/uL; Monocyte% 4.9 % (0-10); NRBC Flagged by Analyzer 0 % (0-5); Neutrophil # 3.04 X10^3/uL (2.7-7.7); Neutrophil % 68.2 % (47-70); Platelet Count 220 K/mm3 (150-450); RBC Distribution Width CV 13.2 % (11.6-14.6); RBC Distribution Width SD 43.3 fl (35.1-43.9); Red Blood Count 4.97 M/mm3 (4.6-6.2); White Blood Count 4.5 K/mm3 (4.4-11.0)
[2021-04-26 19:20] VITALS: BP 108/86; BP 117/77; BP 125/91; PULSE 115; PULSE 93
[2021-04-26] MEDS: 0.9% Normal Saline 1,000 ML 150 ML IV (19:31)
[2021-04-26 19:37] LABS: Anion Gap 8 (5-15); BUN 18 mg/dL (7-18); BUN/Creat Ratio 15.3 RATIO (10-20); Calcium,Total 8.7 mg/dL (8.5-10.1); Chloride 101 mmol/L (98-107); Creatinine, Serum 1.18 mg/dL (0.70-1.30); EST Glomerular Filtration Rate 69 mL/min (>60); Est Glom Filt Rate - Afr Amer 83 mL/min (>60); Estimated Creatinine Clearance 79.46 ml/min; Glucose 116 mg/dL (74-106); Potassium 3.7 mmol/L (3.5-5.1); Sodium Level 134 mmol/L (136-145); Troponin-I HS 8 pg/mL (3.0-78.0)
[2021-04-26 19:42] LABS: D-Dimer Quantitative (DVT/PE) 0.84 FEU/ug/m (0.27-0.49)
--- NOTE | 2021-04-26 19:42 | CT_ITS ---
EXAM: CT ANGIOGRAPHY CHEST WITHOUT AND WITH INTRAVENOUS CONTRAST : 1965 CLINICAL INDICATION: syncope, covid, elevated d-dimer TECHNIQUE: Helically acquired angiography images were obtained of the chest without and with intravenous contrast. This CT exam was performed using one or more of the following dose reduction techniques: automated exposure control, adjustment of the mA and/or kV according to patient size, and/or use of iterative reconstruction technique. This report was created using Scaffold report generation technology. MIP reconstructed images were created and reviewed. CONTRAST: IV 100mL Isovue-370 COMPARISON: None. FINDINGS: PULMONARY ARTERIES: Unremarkable. Normal in caliber. No evidence of pulmonary embolism. AORTA: Unremarkable. Normal in caliber. No evidence of dissection. GREAT VESSELS OF AORTIC ARCH: Unremarkable. Normal in caliber. No evidence of dissection. LUNGS AND PLEURAL SPACES: Unremarkable. No mass. No consolidation or edema. No pleural effusion or thickening. No pneumothorax. HEART: Unremarkable. Heart size is normal. No pericardial effusion. No signs of right heart strain, ratio of right ventricle to left ventricle measures less than 1. MEDIASTINUM: Unremarkable. No mediastinal or hilar adenopathy. Esophagus is unremarkable. No hiatal hernia. THYROID: Unremarkable. No thyroid lesions. BONES/JOINTS: Unremarkable. No suspicious lytic or blastic abnormality. LYMPH NODES: There is a mildly enlarged right paratracheal lymph node that measures 1.9 x 1.1 centimeter. This may be reactive or inflammatory. OTHER FINDINGS: There are patchy areas of groundglass opacity bilaterally. CT/CTA Chest W/WO Contrast IMPRESSION: 1. No evidence of pulmonary embolus. 2. Patchy bilateral areas of groundglass opacities. Imaging features can be seen with COVID 19 pneumonia, though are nonspecific and can occur with a variety of infectious and noninfectious processes. Individualized dose optimization techniques were used for this CT. at 2106 Reported and signed by: Timo Mustafa MD Electronically Signed: Timo Mustafa MD at 21:04 EST Tel , Service support ,
[2021-04-26 20:20] VITALS: O2SAT 93
[2021-04-26 20:33] VITALS: BP 121/83; PULSE 69; RESP 15; O2SAT 93
[2021-04-26 21:54] VITALS: BP 115/79; PULSE 82; RESP 22; O2SAT 93
--- NOTE | 2021-04-26 21:56 | ED.RN ---
THIS NURSE REVIEWED D/C INSTRUCTIONS WITH PT. PT VERBALIZED UNDERSTANDING OF INSTRUCTIONS. PT DENIES FURTHER NEEDS OR QUESTIONS AT THIS TIME. PT ASSISTED TO VEHICLE VIA W/C
== END 2021-04-26 21:58 | disposition home or self-care (01) ==
PROVIDERS: Emergency Provider Emergency Medicine; PCP Family Medicine
DX: U07.1 COVID-19 (principal); R55 Syncope and collapse; Z87.891 Personal history of nicotine dependence
CPT/HCPCS: 71045; 71275; 80048; 84484; 85025; 85379; 93005; 96360; 96361; 99285; J7030; Q9967; A4216

== ENCOUNTER 2021-11-25 10:51 | Emergency (ER) | payer OTHER, SELFPAY ==
[2021-11-25 10:52] VITALS: BP 142/96; PULSE 75; RESP 16; TEMP 36.4; O2SAT 98; BMI 46.0
--- NOTE | 2021-11-25 11:05 | EKG12_ITS ---
Test Reason : CHEST PRESSURE Blood Pressure : / mmHG Vent. Rate : 075 BPM Atrial Rate : 075 BPM P-R Int : 160 ms QRS Dur : 080 ms QT Int : 360 ms P-R-T Axes : 051 -07 020 degrees QTc Int : 402 ms Normal sinus rhythm Normal ECG Confirmed by SEVERIANO HICKEY, NADEGE ([id number]), index editor FLORESITA LEAVITT ([id number]) on 11/26/2021 9:24:10 AM Referred By: JOSÉ MIGUEL Confirmed By:NADEGE العلي MD
--- NOTE | 2021-11-25 11:06 | EDS_ITS ---
HPI History of Present Illness Chief Complaint: Chest Pain Detail of Chief Complaint: Discomfort and dizziness that started around 8:30 AM Informant: patient Narrative Narrative: Patient presents to the emergency department complaint of chest discomfort and some dizziness that started around 8:30 AM. Patient states that he was having a bowel movement when the symptoms first started. Patient felt like moving his head caused him to feel very dizzy and nauseated. Patient has had symptoms like this before. Patient also states that he seems to feel some chest pressure that is minimal rates it about a 2 out of 10. Patient denies recent travel or surgery. No history of PE or DVT. No heart history. Patient had has had issues with vertigo in the past. Prior Similar Symptoms: Yes PFSH PFSH Medical History Anxiety Home Medications paroxetine HCl 40 mg tablet 40 mg PO DAILY 05/29/13 [History Last Taken Unknown] lorazepam 1 mg tablet 1 tab PO Q8 PRN Anxiety 11/25/21 [History Last Taken Unknown] meclizine 25 mg chewable tablet (Antivert) 25 mg PO TID PRN dizziness #14 tabs 11/25/21 [Rx Last Taken Unknown] ondansetron 4 mg disintegrating tablet 4 mg PO Q8H PRN PRN Nausea #10 tabs 11/25/21 [Rx Last Taken Unknown] Allergy/AdvReac Type Severity Reaction Status Date / Time Penicillins Allergy Other Verified 11/25/21 10:54 zolpidem [From Ambien] Allergy PT UNSURE Verified 11/25/21 10:54 OF REACTION Social History Smoking Status: Former smoker Smokeless tobacco user: chewing tobacco alcohol intake: never ROS ROS ED Review of Systems ROS Unobtainable: other Constitutional Constitutional ED: Reports lethargy; Denies chills, fever(s), sweats or weight loss Eyes Eyes: Denies blurry vision, change in vision or diplopia ENT ENT ED: Denies rhinorrhea or sore throat Cardiovascular Cardiovascular: Reports chest pain; Denies orthopnea or racing heartbeat Respiratory/Chest Respiratory/Chest: Reports dyspnea and dyspnea on exertion; Denies cough, orthopnea or sputum Gastrointestinal Gastrointestinal: Denies abdominal pain, diarrhea, nausea or vomiting Genitourinary Genitourinary ED: Denies dysuria, hematuria or urinary frequency Musculoskeletal Musculoskeletal: Denies arthralgias, back pain, myalgias or neck pain Integumentary Denies abscess, Abrasions or rash Neurologic Neurologic: Reports other Details: Dizziness ; Denies headache(s) or weakness Psychiatric Psychiatric: Denies anxiety, depression or suicidal thoughts Endocrine Endocrinology: Denies polydipsia, polyphagia or polyuria Hematologic/Lymphatic Hematologic/Lymphatic: Denies easy bleeding, easy bruising or lymphadenopathy Allergic/Immunologic Allergic/Immunologic ED: Denies mouth swelling, tongue swelling or urticaria EXAM Physical Exam Const Vital Signs: 11/25/21 10:52 11/25/21 11:01 11/25/21 11:11 Temperature 97.6 F L Temperature Source Temporal Pulse Rate 75 Respiratory Rate 16 Respiratory Effort Normal Blood Pressure 142/96 H Blood Pressure Mean 111 Pulse Ox 98 95 Oxygen Delivery Method Room Air Room Air 11/25/21 12:06 11/25/21 13:39 Temperature Temperature Source Pulse Rate 81 68 Respiratory Rate 18 15 Respiratory Effort Blood Pressure 127/87 H 123/69 H Blood Pressure Mean 100 87 Pulse Ox 93 97 Oxygen Delivery Method Room Air Room Air Positive well nourished and well developed General Appearance ED: well developed and NAD HEENT Reports TM's clear and moist mucous membranes normocephalic and atraumatic; Negative for trauma or tenderness Tympanic Membrane ED: Yes TM's clear Eyes PERRL and EOMs intact bilaterally General Eye ED: Negative for pale conjunctiva or scleral icterus Neck no lymphadenopathy, supple and no JVD General: Negative for tenderness Chest Wall inspection of chest normal and palpation of chest normal Chest: Negative for tenderness Resp normal respiratory effort and clear to auscultation bilaterally Effort and Inspection: Negative for respiratory distress or pain with movement Auscultation: Negative for rhonchi, wheezes or diminished lung sounds Cardio regular rate, regular rhythm, S1 normal heart sound, S2 normal heart sound and no murmurs Peripheral Pulses: pulses 2+ throughout GI normal to inspection, nondistended, normoactive bowel sounds, soft to palpation, non-tender, non-distended and no masses Back/Spine no CVA tenderness and no thoracic nor lumbar tenderness Extremity normal to inspection General Extremety ED: Negative for edema General Extremity: Negative for edema Neuro oriented x3, CN's II-XII intact bilaterally, no sensory deficits noted and gait normal Neuro Narrative: Hallpike maneuver performed was negative for nystagmus. Finger-nose and heel escobedo testing within normal limits, negative Romberg, negative for drift, fundi benign. Sensorium / Orientation: awake, alert, oriented to person, oriented to place and oriented to time Motor Exam: strength 5/5 throughout and strength abnormal Psych mental status grossly normal Skin no rashes or lesions noted and no wounds Heart Score History: Slightly/Non-Suspicious ECG: Normal Age: >45 - <65 years Risk Factors: No Risk Factors Troponin: </= Normal Limit Score: 1 MDM MDM MDM Narrative Medical decision making narrative: IV line established on arrival. Patient was given Antivert and Zofran and he had good symptom relief with that. Patient received 4 baby aspirin on arrival. EKG unremarkable and troponin was normal. Delta troponin also was normal. Lab work-up otherwise unremarkable. At this point I suspect patient may have had episode of vertigo which has had in the past. Patient will be treated with Antivert and Zofran. I do not feel his chest pain is cardiac. Patient to follow-up with primary care physician 3 to 5 days. Patient to return to the ER if condition should worsen anyway. Lab Data Attestation: I reviewed the patient's lab results. Labs: Laboratory Results - last 24 hr 11/25/21 11/25/21 11/25/21 11:09 11:09 13:25 WBC 6.0 RBC 4.55 L Hgb 14.4 Hct 41.3 MCV 90.8 MCH 31.6 MCHC 34.9 RDW Std Deviation 46.0 H RDW Coeff of Maritza 13.7 Plt Count 279 MPV 8.8 Immature Gran % (Auto) 0.300 Neut % (Auto) 54.8 Lymph % (Auto) 32.6 [place] % (Auto) 9.4 Eos % (Auto) 2.2 Baso % (Auto) 0.7 Absolute Neuts (auto) 3.3 Absolute Lymphs (auto) 1.95 Nucleated RBC % 0 Sodium 140 Potassium 4.1 Chloride 109 H Carbon Dioxide 26.0 Anion Gap 5 BUN 14 Creatinine 1.15 Estim Creat Clear Calc 80.60 Est GFR (MDRD) Af Amer 85 Est GFR (MDRD) Non-Af 70 BUN/Creatinine Ratio 12.2 Glucose 103 Calcium 9.2 Troponin I High Sens 7 4 Radiography Chest X-Ray - ED: 1 View Diagnostic Testing: Clinical Impression(s) from Imaging Studies Chest X-Ray 11/25/21 11:29 IMPRESSION: Hyperinflation. The lungs are clear. Electronically Signed: Liam Lazar MD at 11:47 EDT , 1 view chest x-ray obtained interpreted by myself as no acute disease process. Radiology in agreement. EKG Initial EKG: Attestation: I personally reviewed and interpreted this EKG as follows: Comments: Sinus rhythm with a ventricular rate of 75 bpm with no acute ST segment changes Discharge Plan Triage Chief Complaint: Chest Pain ED Provider: Ethel Adame Dx/Rx/DC Orders Clinical Impression: Vertigo, Chest pain Instructions: ED Chest Pain, Uncertain Cause, ED Vertigo, Unspecified Prescriptions: New ondansetron [ondansetron] 4 mg tablet,disintegrating 4 mg PO Q8H PRN PRN (Reason: Nausea) Qty: 10 0RF meclizine [Antivert] 25 mg tablet,chewable 25 mg PO TID PRN (Reason: dizziness) Qty: 14 0RF No Action paroxetine HCl 40 MG tablet 40 mg PO DAILY lorazepam 1 mg tablet 1 tab PO Q8 PRN (Reason: Anxiety) Label Comments: Take 1 tablet by mouth every 8 hours as needed for up to 7 days. Primary Care Provider: Lan Lopez Referrals: Lan Lopez MD [Primary Care Provider] - 3-5 Days Disposition Disposition: Home, Self Care
[2021-11-25 11:11] VITALS: O2SAT 95
[2021-11-25] MEDS: 0.9% Normal Saline 1,000 ML 150 ML IV (11:18)
[2021-11-25] MEDS: Aspirin 81 MG TAB.CHEW 324 MG PO (11:19)
[2021-11-25] MEDS: Meclizine HCl 25 MG Tablet PO (11:19)
[2021-11-25] MEDS: Ondansetron 4 MG/2 ML Vial IV (11:20)
[2021-11-25 11:21] LABS: Absolute Lymphocyte Count 1.95 X10^3/uL (0.83-4.51); Absolute Neutrophil Count 3.3 X10^3/uL (2.0-7.7); Basophil# 0.04 X10^3/uL; Basophil% 0.7 % (0-1); Eosinophil# 0.13 X10^3/uL; Eosinophils% 2.2 % (0-5); Hematocrit 41.3 % (40-54); Hemoglobin 14.4 g/dL (13.0-16.5); Lymphocyte # 1.95 X10^3/ul (0.83-4.51); Lymphocyte % 32.6 % (19-41); Mean Corp Hgb Conc 34.9 g/dL (32-36); Mean Corpuscular Hgb 31.6 pg (27.0-32.0); Mean Corpuscular Volume 90.8 fL (80-94); Mean Platelet Vol. 8.8 fl (6.2-12.0); Monocyte# 0.56 X10^3/uL; Monocyte% 9.4 % (0-10); NRBC Flagged by Analyzer 0 % (0-5); Neutrophil # 3.28 X10^3/uL (2.7-7.7); Neutrophil % 54.8 % (47-70); Platelet Count 279 K/mm3 (150-450); RBC Distribution Width CV 13.7 % (11.6-14.6); Red Blood Count 4.55 M/mm3 (4.6-6.2)
--- NOTE | 2021-11-25 11:29 | RAD_ITS ---
STUDY: X-RAY CHEST REASON FOR EXAM: Male, 56 years old. Chest pain TECHNIQUE: Single AP portable view of the chest. COMPARISON: Comparison is made with prior study dated 04/26/2021. FINDINGS: EKG electrodes are seen. Hyperinflation. The lungs are clear. There is no demonstrated pleural abnormality. Normal size heart. Normal mediastinum and claudia. Normal visualized pulmonary arteries. Normal visualized aortic arch and descending thoracic aorta. There are diffuse degenerative changes of the visualized thoracic spine. Normal visualized ribs, clavicles, and shoulders. There is no demonstrated abnormality of the visualized soft tissue structures of the upper abdomen. RAD/Chest 1 View (Portable) IMPRESSION: Hyperinflation. The lungs are clear. Electronically Signed: Liam Lazar MD at 11:47 EDT ,
[2021-11-25 11:35] LABS: Anion Gap 5 (5-15); BUN 14 mg/dL (7-18); BUN/Creat Ratio 12.2 RATIO (10-20); Calcium,Total 9.2 mg/dL (8.5-10.1); Chloride 109 mmol/L (98-107); Creatinine, Serum 1.15 mg/dL (0.70-1.30); EST Glomerular Filtration Rate 70 mL/min (>60); Est Glom Filt Rate - Afr Amer 85 mL/min (>60); Glucose 103 mg/dL (74-106); Potassium 4.1 mmol/L (3.5-5.1); Sodium Level 140 mmol/L (136-145); Troponin-I HS (w/2H Reflex) 7 pg/mL (3.0-78.0)
[2021-11-25 12:06] VITALS: BP 127/87; PULSE 81; RESP 18; O2SAT 93
[2021-11-25 13:14] LABS: Reflex Troponin-HS? (from REC) Y
[2021-11-25 13:39] VITALS: BP 123/69; PULSE 68; RESP 15; O2SAT 97
[2021-11-25 13:50] LABS: Troponin-I HS 4 pg/mL (3.0-78.0)
[2021-11-25 14:31] VITALS: BP 122/77; PULSE 68; RESP 18; O2SAT 97
== END 2021-11-25 14:34 | disposition home or self-care (01) ==
PROVIDERS: Emergency Provider Emergency Medicine; PCP Family Medicine; Visit Provider Emergency Medicine
DX: R42 Dizziness and giddiness (principal); R07.9 Chest pain, unspecified; F41.9 Anxiety disorder, unspecified; Z87.891 Personal history of nicotine dependence
CPT/HCPCS: 71045; 80048; 84484; 85025; 93005; 96361; 96374; 99285; J7030; A4216; J2405

== ENCOUNTER → 2022-03-11 | Outpatient (CLI) | payer OTHER, SELFPAY | END | disposition home or self-care (01) | PROVIDERS: PCP Family Medicine; Referring Provider Psychiatry & Neurology Sleep Medicine; Visit Provider Psychiatry & Neurology Sleep Medicine | DX: G47.33 Obstructive sleep apnea (adult) (pediatric) (principal); E66.01 Morbid (severe) obesity due to excess calories; Z68.42 Body mass index [BMI] 45.0-49.9, adult | CPT/HCPCS: 95811 ==

== ENCOUNTER 2024-02-15 12:01 | Emergency (ER) | payer SELFPAY ==
[2024-02-15 12:02] VITALS: BP 134/95; PULSE 97; RESP 16; TEMP 37.1; O2SAT 98; BMI 49.5
--- NOTE | 2024-02-15 12:11 | EKG12_ITS ---
Test Reason : Blood Pressure : / mmHG Vent. Rate : 091 BPM Atrial Rate : 091 BPM P-R Int : 158 ms QRS Dur : 082 ms QT Int : 370 ms P-R-T Axes : 046 005 037 degrees QTc Int : 455 ms Normal sinus rhythm Normal ECG Confirmed by TERRI HICKEY, ROQUE ([id number]), graphic editor JOCY ROBERSON ([id number]) on 02/17/2024 6:29:05 AM Referred By: Cordelia Rodriguez Confirmed By:ROQUE MURRAY MD
[2024-02-15 12:26] LABS: Bedside Glucose 125 mg/dL (74-106)
[2024-02-15 14:02] VITALS: BP 128/80; PULSE 78; RESP 22; O2SAT 96
--- NOTE | 2024-02-15 14:25 | RAD_ITS ---
STUDY: X-RAY CHEST REASON FOR EXAM: Male, 58 years old. Chest pressure TECHNIQUE: PA and lateral views of the chest. COMPARISON: Comparison is made with prior study November 25, 2021. FINDINGS: EKG electrodes are seen. Hyperinflation. Scattered calcified granulomas. There is no demonstrated pleural abnormality. Normal size heart. Normal mediastinum and claudia. Normal visualized pulmonary arteries. Normal visualized aortic arch and descending thoracic aorta. There are diffuse degenerative changes of the visualized thoracic spine. Normal visualized ribs, clavicles, and shoulders. There is no demonstrated abnormality of the visualized soft tissue structures of the upper abdomen. RAD/Chest PA and Lateral IMPRESSION: Hyperinflation. Stable examination. Electronically Signed: Liam Lazar MD at 14:45 EDT ,
[2024-02-15 14:31] LABS: Absolute Lymphocyte Count 1.37 X10^3/uL (0.83-4.51); Absolute Neutrophil Count 4.7 X10^3/uL (2.0-7.7); Basophil# 0.05 X10^3/uL; Basophil% 0.7 % (0-1); Eosinophils% 1.5 % (0-5); Hemoglobin 13.8 g/dL (13.0-16.5); Lymphocyte # 1.37 X10^3/ul (0.83-4.51); Lymphocyte % 20.3 % (19-41); Mean Corp Hgb Conc 33.7 g/dL (32-36); Mean Corpuscular Hgb 30.9 pg (27.0-32.0); Mean Corpuscular Volume 91.9 fL (80-94); Mean Platelet Vol. 8.9 fl (6.2-12.0); Monocyte# 0.49 X10^3/uL; Monocyte% 7.3 % (0-10); NRBC Flagged by Analyzer 0 % (0-5); Neutrophil % 69.8 % (47-70); Platelet Count 250 K/mm3 (150-450); RBC Distribution Width CV 13.8 % (11.6-14.6); RBC Distribution Width SD 46.7 fl (35.1-43.9); Red Blood Count 4.46 M/mm3 (4.6-6.2); White Blood Count 6.7 K/mm3 (4.4-11.0)
[2024-02-15 14:43] LABS: ALB/GLOB Ratio 1.1 RATIO (0.9-2.4); AST(SGOT) 25 U/L (15-37); Alanine Aminotransfer ALT/SGPT 32 U/L (16-61); Albumin, Serum 3.6 g/dL (3.2-5.0); Alkaline Phosphatase 60 U/L (45-117); Anion Gap 6 (5-15); BUN 12 mg/dL (7-18); BUN/Creat Ratio 9.6 RATIO (10-20); Calcium,Total 8.7 mg/dL (8.5-10.1); Chloride 108 mmol/L (98-107); Creatinine, Serum 1.25 mg/dL (0.70-1.30); EST Glomerular Filtration Rate 63 mL/min (>60); Est Glom Filt Rate - Afr Amer 77 mL/min (>60); Estimated Creatinine Clearance 105.32 ml/min; Globulin 3.4 g/dL (2.2-4.2); Glucose 155 mg/dL (74-106); Sodium Level 141 mmol/L (136-145); Troponin-I HS (w/2H Reflex) 4 pg/mL (3.0-78.0)
[2024-02-15 15:24] VITALS: BP 110/73; BP 119/83; BP 124/76; PULSE 77; PULSE 86; PULSE 87
[2024-02-15 15:25] LABS: Bacteria 0 SEEN /hpf (None Seen); Mucous, Urine 0 SEEN /hpf (<or=2+); Red Blood Cells-Urine 0 SEEN /hpf (0-5); White Blood Cells 0 SEEN /hpf (0-5)
[2024-02-15 15:35] LABS: Color, Urine Yellow (Yellow); Glucose, Dipstick Normal (Normal); Ketone-Dipstick Negative (Negative); Leukocyte Esterase-Dipstick Negative /ul (Negative); Nitrite-Dipstick Negative (Negative); Occult Blood-Urine Negative /ul (Negative); Protein-Dipstick Negative (Negative); Urine Bilirubin Dipstick Negative (Negative); Urine Clarity Sl. Cloudy (Clear); Urine Urobilinogen 4 mg/dl (Normal)
--- NOTE | 2024-02-15 15:40 | EX.ED.DYSGE1 ---
HPI History of Present Illness Chief Complaint: General Illness Informant: patient Narrative Narrative: Patient is a 58-year-old male with history of questionable prediabetes and anxiety presenting for episode of near syncope. Patient is worried it might be associated with low blood sugars he seems to be better after he eats. He states that he was at work today was not overly exerting himself when he suddenly felt weak, dizzy, sweaty like he is going to pass out. He did have a mild tightness of his chest when this happened. He currently is feeling better but he also notes that he went home and ate. He states for breakfast today he had donuts, chips and coffee. He does seem to get these episodes when he goes longer spans without eating. Does not have a history of diabetes or low blood sugar/high blood sugar. No other complaints or concerns reported at this time. Notes he is generally feeling better [facility] Medical History Arthritis Anxiety Home Medications ?Medication ?Instructions ?Recorded ?Last Taken ?Type paroxetine HCl 40 mg tablet 40 mg PO DAILY 05/29/13 Unknown History lorazepam 1 mg tablet 1 tab PO Q8 PRN Anxiety 11/25/21 Unknown History meclizine 25 mg chewable tablet 25 mg PO TID PRN dizziness #14 tabs 11/25/21 Unknown Rx (Antivert) ondansetron 4 mg disintegrating 4 mg PO Q8H PRN PRN Nausea #10 tabs 11/25/21 Unknown Rx tablet Allergy/AdvReac Type Severity Reaction Status Date / Time Penicillins Allergy Other Verified 02/15/24 12:02 [email or web address] (From Ambien) Allergy PT UNSURE Verified 02/15/24 12:02 OF REACTION Surgical History History of surgery on arm Social History housing: house current occupational status: employed Smoking Status: Former smoker Smokeless tobacco user: chewing tobacco alcohol intake: never ROS ROS ED Constitutional Constitutional ED: Reports sweats; Denies chills or fever(s) Eyes Eyes: Reports blurry vision ENT ENT ED: Denies sore throat Cardiovascular Cardiovascular: Reports chest pain; Denies palpitations Respiratory/Chest Respiratory/Chest: Denies cough or dyspnea Gastrointestinal Gastrointestinal: Denies abdominal pain Genitourinary Genitourinary ED: Reports other Details: strong odor to urine ; Denies dysuria or hematuria Musculoskeletal Musculoskeletal: Denies arthralgias or myalgias Integumentary Denies rash Neurologic Neurologic: Denies headache(s) or paresthesias Psychiatric Psychiatric: Denies anxiety EXAM Physical Exam Const Vital Signs: 02/15/24 12:02 02/15/24 12:52 02/15/24 14:02 Temperature 98.7 F Temperature Source Temporal Pulse Rate 97 78 Pulse Rate [Lying] Pulse Rate [Sitting (for 1 minute prior to obtaining)] Pulse Rate [Standing (for 1 minute prior to obtaining)] Respiratory Rate 16 22 H Respiratory Effort Normal Non-Labored Respiratory Pattern Normal Blood Pressure 134/95 H 128/80 H Blood Pressure [Lying] Blood Pressure [Sitting (for 1 minute prior to obtaining)] Blood Pressure [Standing (for 1 minute prior to obtaining)] Blood Pressure Mean 108 96 Blood Pressure Mean [Lying] Blood Pressure Mean [Sitting (for 1 minute prior to obtaining)] Blood Pressure Mean [Standing (for 1 minute prior to obtaining)] Pulse Ox 98 96 Oxygen Delivery Method Room Air 02/15/24 15:24 02/15/24 16:00 Temperature Temperature Source Pulse Rate 76 Pulse Rate [Lying] 77 Pulse Rate [Sitting (for 1 minute prior to obtaining)] 87 Pulse Rate [Standing (for 1 minute prior to obtaining)] 86 Respiratory Rate 14 Respiratory Effort Respiratory Pattern Blood Pressure 121/76 H Blood Pressure [Lying] 110/73 Blood Pressure [Sitting (for 1 minute prior to obtaining)] 124/76 H Blood Pressure [Standing (for 1 minute prior to obtaining)] 119/83 H Blood Pressure Mean 91 Blood Pressure Mean [Lying] 85 Blood Pressure Mean [Sitting (for 1 minute prior to obtaining)] 92 Blood Pressure Mean [Standing (for 1 minute prior to obtaining)] 95 Pulse Ox 95 Oxygen Delivery Method Room Air Positive well nourished and well developed General Appearance ED: well developed and NAD HEENT Reports moist mucous membranes Eyes PERRL and EOMs intact bilaterally Neck supple and no JVD Chest Wall inspection of chest normal and palpation of chest normal Resp normal respiratory effort and clear to auscultation bilaterally Cardio regular rate and regular rhythm GI normal to inspection, nondistended, normoactive bowel sounds and non-tender Extremity normal to inspection General Extremety ED: Negative for edema General Extremity: Negative for edema Neuro oriented x3 Sensorium / Orientation: alert Motor Exam: Negative for general weakness Psych mental status grossly normal Skin no rashes or lesions noted and no wounds MDM MDM MDM Narrative Medical decision making narrative: Patient is evaluated for was what sounds like an episode of near syncope. He has had these episodes frequently but correlates with being hungry and possibly having low blood sugar. Symptoms appear most resolved upon arrival. Near syncope workup is obtained as he did have some chest pressure also will obtain delta high-sensitivity troponin. He is not orthostatic positive but is symptomatic during orthostatics was given IV fluids. He does tell me that his urine has been darker and more concentrated lately. Discussed increasing his water intake. His lab work however including a CBC, CMP, initial troponin, urinalysis and chest x-ray are normal. Exact cause of his symptoms is not clear but at this time I do feel that he is stable for outpatient follow-up. He does not have any hypoglycemia or significant electrolyte abnormalities at this time. His glucose is 155 which is consistent with him just eating before coming in. Anticipate if delta high-sensitivity troponin is normal can be discharged home safely with outpatient follow-up Lab Data Labs: Laboratory Results - last 24 hr 02/15/24 02/15/24 02/15/24 12:07 13:40 15:21 WBC 6.7 RBC 4.46 L Hgb 13.8 Hct 41.0 MCV 91.9 MCH 30.9 MCHC 33.7 RDW Std Deviation 46.7 H RDW Coeff of Maritza 13.8 Plt Count 250 MPV 8.9 Immature Gran % (Auto) 0.400 Neut % (Auto) 69.8 Lymph % (Auto) 20.3 Titus % (Auto) 7.3 Eos % (Auto) 1.5 Baso % (Auto) 0.7 Absolute Neuts (auto) 4.7 Absolute Lymphs (auto) 1.37 Nucleated RBC % 0 Sodium 141 Potassium 4.0 Chloride 108 H Carbon Dioxide 27.0 Anion Gap 6 BUN 12 Creatinine 1.25 Estim Creat Clear Calc 105.32 Est GFR (MDRD) Af Amer 77 Est GFR (MDRD) Non-Af 63 BUN/Creatinine Ratio 9.6 L Glucose 155 H Calcium 8.7 Total Bilirubin 0.30 AST 25 ALT 32 Alkaline Phosphatase 60 Troponin I High Sens 4 Total Protein 7.0 Albumin 3.6 Globulin 3.4 Albumin/Globulin Ratio 1.1 Urine Color Yellow Urine Clarity Sl. Cloudy Urine pH 7.0 Ur Specific Dobbins 1.010 Urine Protein Negative Urine Glucose (UA) Normal Urine Ketones Negative Urine Occult Blood Negative Urine Nitrite Negative Urine Bilirubin Negative Urine Urobilinogen 4 H Ur Leukocyte Esterase Negative Urine RBC 0 SEEN Urine WBC 0 SEEN Ur Squamous Epith Cells 0-5 SEEN Urine Bacteria 0 SEEN Urine Mucus 0 SEEN POC Glucose 125 H 02/15/24 16:25 WBC RBC Hgb Hct MCV MCH MCHC RDW Std Deviation RDW Coeff of Maritza Plt Count MPV Immature Gran % (Auto) Neut % (Auto) Lymph % (Auto) Titus % (Auto) Eos % (Auto) Baso % (Auto) Absolute Neuts (auto) Absolute Lymphs (auto) Nucleated RBC % Sodium Potassium Chloride Carbon Dioxide Anion Gap BUN Creatinine Estim Creat Clear Calc Est GFR (MDRD) Af Amer Est GFR (MDRD) Non-Af BUN/Creatinine Ratio Glucose Calcium Total Bilirubin AST ALT Alkaline Phosphatase Troponin I High Sens 4 Total Protein Albumin Globulin Albumin/Globulin Ratio Urine Color Urine Clarity Urine pH Ur Specific Dobbins Urine Protein Urine Glucose (UA) Urine Ketones Urine Occult Blood Urine Nitrite Urine Bilirubin Urine Urobilinogen Ur Leukocyte Esterase Urine RBC Urine WBC Ur Squamous Epith Cells Urine Bacteria Urine Mucus POC Glucose Radiography Diagnostic Testing: Clinical Impression(s) from Imaging Studies Chest X-Ray 02/15/24 14:25 IMPRESSION: Hyperinflation. Stable examination. Electronically Signed: Liam Lazar MD at 14:45 EDT , Rhythm Strip Rhythm Strip: Sinus Rhythm Rate: 91 Ectopy: None EKG Initial EKG: Attestation: I personally reviewed and interpreted this EKG as follows: Interpretation: Sinus Rhythm Comments: Normal sinus rhythm at a rate of 91 bpm Normal axis Normal intervals Normal ST segments Discharge Plan Triage Chief Complaint: General Illness ED Provider: Cordelia Rodriguez Dx/Rx/DC Orders Clinical Impression: Near syncope, Lightheadedness Instructions: ED Near-Fainting, Uncertain Cause Prescriptions: No Action paroxetine HCl 40 MG tablet 40 mg PO DAILY lorazepam 1 mg tablet 1 tab PO Q8 PRN (Reason: Anxiety) Patient Comments: Take 1 tablet by mouth every 8 hours as needed for up to 7 days. ondansetron [ondansetron] 4 mg tablet,disintegrating 4 mg PO Q8H PRN PRN (Reason: Nausea) Qty: 10 0RF meclizine [Antivert] 25 mg tablet,chewable 25 mg PO TID PRN (Reason: dizziness) Qty: 14 0RF Primary Care Provider: Lan Lopez Referrals: Lan Lopez MD [Primary Care Provider] - Activity Restrictions/Additional Instructions: Your workup today was largely normal. Your blood sugar was 155 on the blood work. Your chest x-ray did not show any acute abnormalities. Your urinalysis was normal. So was the remainder of your blood work. Please follow-up outpatient with your primary care doctor for further evaluation of these episodes and more long-term outpatient testing this. If you develop worsening of your symptoms, difficulty breathing, severe chest pain or you actually pass out please return to the emergency room. As we discussed work on increasing your water intake and please try for balanced diet. Print Language: Italian Disposition Disposition: Home, Self Care
[2024-02-15] MEDS: 0.9% Normal Saline (1000mL) 1,000 ML 999 ML IV (15:50)
[2024-02-15 15:59] LABS: Squamous Epithelial Cells - UA 0-5 SEEN /hpf (0-5)
[2024-02-15 16:00] VITALS: BP 121/76; PULSE 76; RESP 14; O2SAT 95
[2024-02-15 16:19] LABS: Reflex Troponin-HS? (from REC) Y
[2024-02-15 17:05] LABS: Troponin-I HS 4 pg/mL (3.0-78.0)
[2024-02-15 17:36] VITALS: BP 128/80; PULSE 73; RESP 16; TEMP 36.6; O2SAT 95
== END 2024-02-15 17:37 | disposition home or self-care (01) ==
PROVIDERS: Emergency Provider Emergency Medicine; PCP Family Medicine; Referring Provider Emergency Medicine; Visit Provider Emergency Medicine
DX: R55 Syncope and collapse (principal); R42 Dizziness and giddiness; F41.9 Anxiety disorder, unspecified; Z87.891 Personal history of nicotine dependence; Z79.899 Other long term (current) drug therapy
CPT/HCPCS: 71046; 80053; 81001; 82962; 84484; 85025; 93005; 96360; 99284; J7030; A4216